=== PATIENT | male | born 1935 | race Caucasian/White ===

== ENCOUNTER 2017-02-20 18:46 | Inpatient (IN) ==
--- NOTE | 2017-02-20 19:27 | Emergency Department Note ---
SOB HPI - General Chief Complaint: Shortness of Breath/Dyspnea Stated Complaint: Short of breath Time Seen by Provider: 02/20/17 19:11 Source: patient, family Mode of arrival: ambulatory - History of Present Illness Patient reports shortness of breath the last 2 weeks low but worse today. Does have a history of cardiomyopathy, CHF. No recent ankle swelling, his does state that he vomited once today, he was not able to hold much down in the way of food. No fevers reported he does feel a little cold denies any abdominal pain, he has had some nausea but no vomiting denies any diarrhea, no cough mainly shortness of breath. MD Complaint: shortness of breath - Related Data Home Medications Medication Instructions Recorded Confirmed aspirin 81 mg tablet,delayed 81 mg PO QDAY tab 02/13/15 01/17/17 release cholecalciferol (vitamin D3) 5,000 5,000 unit PO QDAY cap 02/13/15 01/17/17 unit capsule lancets See Dose Instructions .ROUTE 02/13/15 01/11/17 .MEDSUPPLY nitroglycerin 0.4 mg sublingual 0.4 mg SUBLINGUAL Q5MIN PRN tab 02/13/15 tablet carvedilol 3.125 mg tablet 3.125 mg PO .COMPLEX tab 03/19/15 01/17/17 digoxin 250 mcg tablet 125 mcg PO ONCE tab 01/11/17 01/17/17 Previous Rx's Medication Instructions Recorded sitagliptin 100 mg tablet 100 mg PO QDAY #30 tab 02/09/16 pravastatin 40 mg tablet 20 mg PO QHS #15 tab 02/21/16 blood sugar diagnostic strips See Dose Instructions .ROUTE 03/07/16 .MEDSUPPLY #100 each isosorbide mononitrate ER 30 mg 30 mg PO QAM #30 tab 01/11/17 tablet,extended release 24 hr Lisinopril [Zestril] 2.5 mg PO DAILY #60 tablet 01/17/17 torsemide 20 mg tablet 20 mg PO QDAY #30 tab 02/16/17 Allergies Allergy/AdvReac Type Severity Reaction Status Date / Time peanut Allergy Other Verified 02/20/17 18:51 Review of Systems All systems ED: reviewed and negative except as stated. ENT ED: Denies: ear pain, throat pain Cardiovascular: Reports: dyspnea on exertion. Denies: chest pain Respiratory: Reports: dyspnea. Denies: cough Gastrointestinal: Reports: nausea, vomiting. Denies: abdominal pain, diarrhea, constipation Past Medical History - Past Medical History Source: nursing notes reviewed Medical history: Reports: CHF, coronary artery disease, myocardial infarction, other (ICD, SVT, right axis, retinal detachment, [place], cardiomyopathy, hyperlipidemia, diabetes) Surgical history ED: Reports: angioplasty/stent Family history: Reports: no significant family history, non-contributory - Social History smoking status: Never smoker Alcohol use: Reports: Occasionally Drug use: Reports: none Physical Exam - General Limitations: no limitations General appearance: alert - Head Head exam: atraumatic, normocephalic - Eye Eye exam: Present: normal appearance, PERRL, EOMI. Absent: conjunctival injection - ENT ENT exam: normal exam, normal oropharynx, mucous membranes moist - Neck Neck exam: Present: normal inspection, full ROM. Absent: tenderness - Chest Chest inspection: Present: normal inspection, symmetric chest wall rise - Respiratory Respiratory exam: Present: normal lung sounds bilaterally, accessory muscle use , other (ew basilar crackles). Absent: respiratory distress - Cardiovascular Cardiovascular exam: Present: regular rate, systolic murmur - Abdominal Exam Abdominal exam: Present: soft. Absent: distention, tenderness, guarding - exam: Present: normal inspection - Extremities Exam Extremities exam: Present: normal inspection. Absent: pedal edema - Back Exam Back exam: Present: normal inspection - Neurological Exam Neurological exam: Present: alert, oriented X3, CN II-XII intact. Absent: motor sensory deficit - Psychiatric Psychiatric exam: Present: normal affect - Skin Skin exam: Present: warm, dry, pallor Course - Reevaluation(s) Reevaluation #1: We tried giving him Lasix 40 mg IV, and he did put out about 250 cc of urine with that. He was also started on nitro paste and we tried to evaluate his oxygen saturation after the above procedures. Turns out that he was still tachypneic breathing at a respiratory rate of about 24-26, O2 sats were 80-83% on room air. Thus he needs oxygen and monitoring, I'm not sure there is much else that could be done medication galeano but his dig levels also too high and his digoxin certainly needs to be cut back and held for now, his blood pressure has been borderline 110 up as high as 118 systolic and there might be a little room to lower his blood pressure carefully. Discussed with Dr. aGllo we will admit him for CHF, oxygen treatment and hopefully care issues can be discussed with the family and the patient. Vital Signs Temperature 97.9 F 02/20/17 18:47 Pulse Rate 102 H 02/20/17 18:47 Respiratory Rate 15 02/20/17 18:47 Blood Pressure 132/88 02/20/17 18:47 Pulse Oximetry (%) 99 02/20/17 18:47 Temperature 97.9 F 02/20/17 18:47 Pulse Rate 96 H 02/20/17 20:50 Respiratory Rate 26 H 02/20/17 19:55 Blood Pressure 130/69 02/20/17 21:46 Pulse Oximetry (%) 96 02/20/17 20:50 Shortness of Breath/Dyspnea - [facility] Narrative Medical decision making narrative: impression is CHF with cardiomyopathy and dig toxici - Lab Data Result diagrams: 02/20/17 19:31 02/20/17 19:31 Lab Results 02/20/17 02/20/17 02/20/17 Range/Units 19:31 19:31 19:31 WBC 9.9 (4.5-11.0) K/mcL RBC 4.68 (4.50-5.90) M/mcL Hgb 13.3 L (13.5-16.5) g/dL Hct 40.3 L (41.0-55.0) % MCV 86.1 (80.0-100.0) fL MCH 28.5 (26.0-34.0) pg MCHC 33.1 (31.0-36.0) g/dL RDW 16.1 H (11.5-14.5) % Plt Count 210 (140-440) K/mcL MPV 9.9 (7.4-10.4) fL Gran % 84.1 H (38.0-78.0) % Lymph % (Auto) 9.0 L (15.5-49.0) % [place] % (Auto) 5.7 (1.0-12.0) % Eos % (Auto) 0.4 (0.0-7.0) % Baso % (Auto) 0.8 (0.0-2.0) % Gran # 8.3 H (1.8-8.0) K/mcL Lymph # (Auto) 0.9 L (1.5-4.8) K/mcL [place] # (Auto) 0.6 (0.1-0.9) K/mcL Eos # (Auto) 0 (0.0-0.7) K/mcL Baso # (Auto) 0.1 (0.0-0.3) K/mcL Sodium 135 (133-145) mmol/L Potassium 4.1 (3.3-5.1) mmol/L Chloride 92 L (96-108) mmol/L Carbon Dioxide 20 L (22-30) mmol/L Anion Gap 23.0 H (8-16) BUN 28 H (8-23) mg/dl Creatinine 1.8 H (0.7-1.2) mg/dl GFR Calculation 35 Glucose 220 H (70-105) mg/dL Calcium 10.0 (8.6-10.4) mg/dl Total Bilirubin 1.4 H (0.0-1.0) mg/dL AST 137 H (0-37) U/l ALT 127 H (0-40) U/l Alkaline Phosphatase 89 (39-117) U/L Troponin T 0.04 H* (0-0.03) ng/ml NT-Pro-B Natriuret Pep 78353.0 H (0-450) pg/ml Total Protein 7.6 (5.9-8.4) gm/dL Albumin 3.7 (3.2-5.2) gm/dL Globulin 3.9 H (2.2-3.7) gm/dL Albumin/Globulin Ratio 0.9 L (1.0-2.3) Urine Color Urine Appearance Urine pH (5.0-9.0) Ur Specific [place] (1.000-1.035) Urine Protein (NEG) mg/dL Urine Glucose (UA) (NEG) mg/dL Urine Ketones (NEG) mg/dL Urine Occult Blood (<0.03) mg/dL Urine Nitrate (NEG) Urine Bilirubin (NEG) mg/dL Urine Urobilinogen (NEG) mg/dL Ur Leukocyte Esterase (NEG) /uL Urine RBC (0-1) /hpf Urine WBC (0-4) /hpf Ur Squamous Epith Cells (0-4) /hpf Urine Bacteria (0) /hpf Ur Culture Indicated? Digoxin (0.5-0.8) ng/ml Digoxin Dose Digox Last Dose Time 02/20/17 02/20/17 Range/Units 19:31 20:13 WBC (4.5-11.0) K/mcL RBC (4.50-5.90) M/mcL Hgb (13.5-16.5) g/dL Hct (41.0-55.0) % MCV (80.0-100.0) fL MCH (26.0-34.0) pg MCHC (31.0-36.0) g/dL RDW (11.5-14.5) % Plt Count (140-440) K/mcL MPV (7.4-10.4) fL Gran % (38.0-78.0) % Lymph % (Auto) (15.5-49.0) % [place] % (Auto) (1.0-12.0) % Eos % (Auto) (0.0-7.0) % Baso % (Auto) (0.0-2.0) % Gran # (1.8-8.0) K/mcL Lymph # (Auto) (1.5-4.8) K/mcL [place] # (Auto) (0.1-0.9) K/mcL Eos # (Auto) (0.0-0.7) K/mcL Baso # (Auto) (0.0-0.3) K/mcL Sodium (133-145) mmol/L Potassium (3.3-5.1) mmol/L Chloride (96-108) mmol/L Carbon Dioxide (22-30) mmol/L Anion Gap (8-16) BUN (8-23) mg/dl Creatinine (0.7-1.2) mg/dl GFR Calculation Glucose (70-105) mg/dL Calcium (8.6-10.4) mg/dl Total Bilirubin (0.0-1.0) mg/dL AST (0-37) U/l ALT (0-40) U/l Alkaline Phosphatase (39-117) U/L Troponin T (0-0.03) ng/ml NT-Pro-B Natriuret Pep (0-450) pg/ml Total Protein (5.9-8.4) gm/dL Albumin (3.2-5.2) gm/dL Globulin (2.2-3.7) gm/dL Albumin/Globulin Ratio (1.0-2.3) Urine Color Yellow Urine Appearance Clear Urine pH 6.0 (5.0-9.0) Ur Specific [place] 1.010 (1.000-1.035) Urine Protein 30 A (NEG) mg/dL Urine Glucose (UA) Negative (NEG) mg/dL Urine Ketones Neg (NEG) mg/dL Urine Occult Blood Neg (<0.03) mg/dL Urine Nitrate Neg (NEG) Urine Bilirubin Neg (NEG) mg/dL Urine Urobilinogen Neg (NEG) mg/dL Ur Leukocyte Esterase Neg (NEG) /uL Urine RBC 1 (0-1) /hpf Urine WBC 1 (0-4) /hpf Ur Squamous Epith Cells 0 (0-4) /hpf Urine Bacteria 0 (0) /hpf Ur Culture Indicated? No Digoxin 2.3 H* (0.5-0.8) ng/ml Digoxin Dose Not Reportable Digox Last Dose Time Not Reportable Disposition Disposition: Xfer As Inpt ([facility]) Condition: Undetermined Referrals: Brian Francisco MD [Primary Care Provider] -
[2017-02-20] MEDS ORDERED: NITROGLYCERIN 1 GM OINT.TOP TD ONE (19:30)
[2017-02-20 20:10] LABS: Basophils # (Auto) 0.1 K/mcL (0.0-0.3); Basophils % (Auto) 0.8 % (0.0-2.0); Eosinophils # (Auto) 0 K/mcL (0.0-0.7); Eosinophils % (Auto) 0.4 % (0.0-7.0); Granulocytes % (Auto) 84.1 % (38.0-78.0); Lymphocytes # (Auto) 0.9 K/mcL (1.5-4.8); Mean Cell Volume 86.1 fL (80.0-100.0); Mean Corpuscular HGB Conc 33.1 g/dL (31.0-36.0); Mean Corpuscular Hemoglobin 28.5 pg (26.0-34.0); Monocytes # (Auto) 0.6 K/mcL (0.1-0.9); Monocytes % (Auto) 5.7 % (1.0-12.0); Platelet Count 210 K/mcL (140-440); RBC 4.68 M/mcL (4.50-5.90); Red Cell Distribution Width 16.1 % (11.5-14.5)
[2017-02-20 20:36] LABS: ALT/SGPT 127 U/l (0-40); Albumin 3.7 gm/dL (3.2-5.2); Albumin/Globulin Ratio 0.9 (1.0-2.3); Alkaline Phosphatase 89 U/L (39-117); Blood Urea Nitrogen 28 mg/dl (8-23)
[2017-02-20 20:50] LABS: Appearance,Urine CLEAR; Bacteria,Urine 0 /hpf (0); Bilirubin,Urine NEG (NEG); Color,Urine YELLOW; Glucose,Urine (UA) NEGATIVE (NEG); Leukocyte Esterase,Urine NEG /uL (NEG); Nitrate,Urine NEG (NEG); Protein,Urine 30 mg/dL (NEG); Urine Blood NEG mg/dL (<0.03); Urine RBC 1 /hpf (0-1); Urine Squamous Epithelial Cell 0 /hpf (0-4); Urine WBC 1 /hpf (0-4); Urobilinogen,Urine NEG (NEG)
[2017-02-20] MEDS ORDERED: FUROSEMIDE 40 MG/4 ML VIAL IV ONE (20:53)
--- NOTE | 2017-02-20 22:32 | Internal Med History&Physical ---
Medical - H&P: HPI Patient information: Note initiated : 02/20/17 at 10:29 pm Patient: Alcides Lopez 82 y/o M admitted on for Short of breath. History of present illness: Mr. Lopez is a 82 year old man who presented to the emergency room this evening complaining of worsening shortness of breath. His reports that he has had progressive dyspnea for at least the last month. He has a known ischemic cardiomyopathy, but apparently last saw his fpga engineer, Dr. Beach , last July, who then retired. He has been seeing his primary care physician, and having his medications adjusted, but his says he is just continuing to get worse. She says he is now too weak to stand up. He is short of breath both at rest and particularly with exertion. Emergency room evaluation showed worsening renal function and hypoxia on room air down into the 80s. BNP was markedly elevated, and troponin was mildly positive. The patient is admitted for intensive management of congestive heart failure. He is quite sleepy during the time of my exam, and is rather dyspneic. His answers most questions, although he does occasionally answer a question. He denies recent fever or chills, headaches or dizziness, new eye or ear symptoms, sore throat or cough. He denies chest pain or palpitations, abdominal pain, nausea or vomiting, diarrhea or constipation. He denies dysuria. He was scheduled to establish care with a new fpga engineer, Dr. Arcos, on March 02. 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 carvedilol 3.125 mg PO Take one tablet in the morning and two tablets in the evening.; administer with food cholecalciferol (vitamin D3) 5,000 units PO QDAY digoxin 125 mcg PO ONCE isosorbide mononitrate ER 30 mg PO QAM lancets Use as directed to test blood sugars once daily. [lisinopril 2.5 mg PO DAILY] nitroglycerin 0.4 mg Sublingual Q5MIN PRN pravastatin 20 mg (1/2 x 40 mg) PO QHS sitagliptin 100 mg PO QDAY torsemide 20 mg PO QDAY Allergies/Adverse Reactions peanut Allergy Family History father Malignant neoplasm of prostate Father Secondary malignant neoplasm of respiratory tract Listed as:trachea/bronchus/lung Mother Myocardial Infarction, Onset Age: 68 Social History smoking status: Never smoker. No drug use. alcohol intake frequency: former alcohol drinker. The patient lives with his . I believe their children live out of town. Medical - H&P: Meds Home Medications Medication Instructions Recorded Confirmed Type aspirin 81 mg tablet,delayed 81 mg PO QDAY tab 02/13/15 01/17/17 History release cholecalciferol (vitamin D3) 5,000 5,000 unit PO QDAY cap 02/13/15 01/17/17 History unit capsule lancets See Dose Instructions .ROUTE 02/13/15 01/11/17 History .MEDSUPPLY nitroglycerin 0.4 mg sublingual 0.4 mg SUBLINGUAL Q5MIN PRN tab 02/13/15 History tablet carvedilol 3.125 mg tablet 3.125 mg PO .COMPLEX tab 03/19/15 01/17/17 History sitagliptin 100 mg tablet 100 mg PO QDAY #30 tab 02/09/16 01/17/17 Rx pravastatin 40 mg tablet 20 mg PO QHS #15 tab 02/21/16 01/17/17 Rx blood sugar diagnostic strips See Dose Instructions .ROUTE 03/07/16 01/11/17 Rx .MEDSUPPLY #100 each digoxin 250 mcg tablet 125 mcg PO ONCE tab 01/11/17 01/17/17 History isosorbide mononitrate ER 30 mg 30 mg PO QAM #30 tab 01/11/17 01/17/17 Rx tablet,extended release 24 hr Lisinopril [Zestril] 2.5 mg PO DAILY #60 tablet 01/17/17 Rx torsemide 20 mg tablet 20 mg PO QDAY #30 tab 02/16/17 02/20/17 Rx Allergies Allergy/AdvReac Type Severity Reaction Status Date / Time peanut Allergy Other Verified 02/20/17 18:51 Medical - H&P: Exam - Constitutional Vitals: Temp Pulse Resp BP Pulse Ox 97.9 F 96 H 26 H 130/69 96 02/20/17 18:47 02/20/17 20:50 02/20/17 19:55 02/20/17 21:46 02/20/17 20:50 The patient is very weak and sleepy. He has difficulty answering questions. His is at the bedside. Head: Normocephalic atraumatic. Eyes: Right pupil is round and reactive. Left pupil is irregular from previous surgery., EOMI, anicteric. TMs are clear canals are clear. Pharynx: Mucosa is markedly dry. Posterior pharynx is normal. Neck: Appears supple, without lymphadenopathy, obvious JVD, thyromegaly, bruits. Cardiac exam: Shows regular rate and rhythm with normal S1 and S2. No murmurs, rubs, gallops are obvious. Lungs: He has fairly diffuse crackles and soft wheezes. He is fairly dyspneic at rest, but is lying nearly flat. Abdomen: Is soft and nontender without obvious masses. Bowel sounds are normoactive. Extremities: Show about 1+ edema, without cyanosis or clubbing. Neurologic: The patient is very sleepy and asked to be asked questions several times. Motor exam is grossly nonfocal. Medical - H&P: Reslt - Labs CBC & Chem 7: 02/20/17 19:31 02/21/17 19:31 Labs: Short CBC 02/20/17 Range/Units 19:31 WBC 9.9 (4.5-11.0) K/mcL Hgb 13.3 L (13.5-16.5) g/dL Hct 40.3 L (41.0-55.0) % Plt Count 210 (140-440) K/mcL BMP 02/20/17 19:31 Sodium 135 Potassium 4.1 Chloride 92 L Carbon Dioxide 20 L BUN 28 H Creatinine 1.8 H Glucose 220 H Calcium 10.0 Cardiac Enzymes 02/20/17 Range/Units 19:31 Troponin T 0.04 H* (0-0.03) ng/ml Liver Function 02/20/17 Range/Units 19:31 Total Bilirubin 1.4 H (0.0-1.0) mg/dL AST 137 H (0-37) U/l ALT 127 H (0-40) U/l Alkaline Phosphatase 89 (39-117) U/L Albumin 3.7 (3.2-5.2) gm/dL Urine 02/20/17 Range/Units 20:13 Urine Color Yellow Urine Appearance Clear Urine pH 6.0 (5.0-9.0) Ur Specific [place] 1.010 (1.000-1.035) Urine Protein 30 A (NEG) mg/dL Urine Glucose (UA) Negative (NEG) mg/dL January 20, 2017: Echo cardiogram: Aortic root sclerosis. Moderate aortic leaflet calcification. Moderate LV enlargement with severe global systolic dysfunction , ejection fraction 15-20%. Mild mitral regurgitation. Passive pulmonary hypertension. February 20: CBC differential: Shows 8300 granulocytes. Lymphocytes are low at 900. Next Digoxin is high at 2.3 next Chest x-ray: No official report yet, but to my reading shows diffuse pulmonary vascular congestion. February 09: PFTs: Mild airflow obstruction Medical - H&P: A/P (1) CHF (congestive heart failure), NYHA class IV Current visit: Yes Status: Acute (2) CHF exacerbation Current visit: Yes Status: Acute (3) Diabetes Current visit: No Status: Chronic (4) History of implantable cardioverter-defibrillator (ICD) placement Problem details: 04/15/2014 Dr Henry Current visit: No Status: Chronic (5) Ischemic cardiomyopathy Problem details: with mild CHF 10/13 Current visit: No Status: Chronic - Narrative A/P Narrative: #1. Cardiac. -He presents with worsening CHF symptoms. He has known severe systolic dysfunction, due to ischemic cardiomyopathy. He may have ongoing underlying ischemia. He was to see cardiology on February 28, Dr. Arcos, I believe. He previously saw Dr. Gray in July, before he retired. . It is not clear if he might be a candidate for a biventricular pacer to improve cardiac output. For tonight, he is failing outpatient treatment, and therefore will be admitted for diuresis. -He was initially admitted to telemetry, but rapidly started declining, in terms of his ability to oxygenate and to maintain blood pressure. He was then transferred to the intensive care unit for more aggressive management. -Nitroglycerin drip. -IV Lasix. -Monitor electrolytes closely. Monitor blood pressures. -Coronary disease, ischemic cardiomyopathy. Continue pravastatin, nitroglycerin, Isordil. Continue Coreg, aspirin, lisinopril. Plan consider adding Plavix. -Formal chest x-ray reading is still pending. I am assuming his shortness of breath is related to heart failure, and not to pneumonia. We will try him on IV nitroglycerin to see if that improves his dyspnea at all. If he becomes hypotensive might consider a trial of dobutamine. -Transfer to ICU. -If he does not respond to treatment over the next several hours, contact cardiology at a larger hospital, to discuss possible transfer. Patient says he would want to be transferred if there is more that can be done elsewhere. 2. Endocrine. -Type 2 diabetes. Continue sitagliptin. Accu-Cheks and sliding scale insulin. 3. Hyperlipidemia. Continue pravastatin. Consider changing to a more effective statin, such as Lipitor or Crestor. 4. Renal. Patient appears to have developed chronic renal insufficiency, which either may be due to muscle or aggravated by, his heart failure or heart failure meds. -Elevated digoxin. Hold dig, and monitor levels. 5. CODE STATUS: DNR. #6. DVT prophylaxis: Subcu heparin. This visit took approximately 75 minutes, to review records and test results, review his case with the ER MD, interview and examine him, as well as interview his , and review plan of care with staff, and write orders.
[2017-02-20] MEDS ORDERED: NITROGLYCERIN 0.4 MG TAB.SUBL SL PRN (23:54)
[2017-02-20] MEDS ORDERED: DOCUSATE SODIUM 100 MG CAPSULE PO PRN (23:54)
[2017-02-20] MEDS ORDERED: DEXTROSE 50% 50 ML VIAL IV PRN (23:54)
[2017-02-20] MEDS ORDERED: MAGNESIUM HYDROXIDE 30 ML ORAL.SUSP PO PRN (23:54)
[2017-02-20] MEDS ORDERED: ONDANSETRON 4 MG/2 ML VIAL IV PRN (23:54)
[2017-02-20] MEDS ORDERED: NALOXONE HCL 0.4 MG/ML VIAL IV PRN (23:54)
[2017-02-20] MEDS ORDERED: ACETAMINOPHEN 325 MG TABLET PO PRN (23:54)
[2017-02-20] MEDS ORDERED: ALBUTEROL SULFATE 2.5 MG/3 ML NEBULIZER NEB PRN (23:54)
[2017-02-21 01:02] LABS: ALT/SGPT 126 U/l (0-40); Albumin/Globulin Ratio 1.1 (1.0-2.3); Alkaline Phosphatase 89 U/L (39-117); Bilirubin,Direct 0.4 mg/dL (0.0-0.3); Blood Urea Nitrogen 27 mg/dl (8-23); Gamma Glutamyl Transpeptidase 38 U/L (8-61); Magnesium 2.3 mg/dL (1.6-2.5)
[2017-02-21] MEDS ORDERED: CLOPIDOGREL 75 MG TABLET PO ONE ×2 (01:35→01:36)
[2017-02-21] MEDS ORDERED: MAGNESIUM HYDROXIDE 30 ML ORAL.SUSP PO PRN (01:36)
[2017-02-21] MEDS ORDERED: NITROGLYCERIN 0.4 MG TAB.SUBL SL PRN (01:36)
[2017-02-21] MEDS ORDERED: ACETAMINOPHEN 325 MG TABLET PO PRN (01:36)
[2017-02-21] MEDS ORDERED: NALOXONE HCL 0.4 MG/ML VIAL IV PRN (01:36)
[2017-02-21] MEDS ORDERED: DOCUSATE SODIUM 100 MG CAPSULE PO PRN (01:36)
[2017-02-21] MEDS ORDERED: ALBUTEROL SULFATE 2.5 MG/3 ML NEBULIZER NEB PRN (01:36)
[2017-02-21] MEDS ORDERED: ONDANSETRON 4 MG/2 ML VIAL IV PRN (01:36)
[2017-02-21] MEDS ORDERED: DEXTROSE 50% 50 ML VIAL IV PRN (01:36)
[2017-02-21] MEDS ORDERED: NITROGLYCERIN/D5W 250 ML IV ONE (01:49)
[2017-02-21] MEDS: NITROGLYCERIN/D5W 25 MG/250 ML BOTTLE IV SCH (02:08)
[2017-02-21] MEDS: 0.9 % SODIUM CHLORIDE 250 ML IV SCH ×4 (02:10→21:22)
[2017-02-21] MEDS ORDERED: DOBUTamine 250 ML IV ONE (05:48)
[2017-02-21 05:49] LABS: Estimated Average Glucose(eAG) 166 mg/dL; Hemoglobin A1C 7.4 % HGB (4.0-6.0)
[2017-02-21] MEDS: DOBUTamine 250 MG in PREMIX 1 BAG IV SCH ×3 (05:49→17:40)
[2017-02-21 06:51] LABS: ALT/SGPT 760 U/l (0-40); Albumin 3.5 gm/dL (3.2-5.2); Albumin/Globulin Ratio 0.9 (1.0-2.3); Alkaline Phosphatase 97 U/L (39-117); Bilirubin,Direct 0.5 mg/dL (0.0-0.3); Blood Urea Nitrogen 32 mg/dl (8-23); Gamma Glutamyl Transpeptidase 45 U/L (8-61); Magnesium 2.3 mg/dL (1.6-2.5); Uric Acid 11.3 mg/dL (2.5-8.0)
--- NOTE | 2017-02-21 07:21 | XRay Report ---
CLINICAL INFORMATION: Shortness of breath COMPARISON: 01/17/2017 FINDINGS: The heart has increased in size and is now moderately enlarged. Automatic cardiac defibrillator and wires are in stable satisfactory position. Mediastinum is normal. The pulmonary vessels have increased in caliber and are now moderately congested. There is moderate peribronchovascular edema. No infiltrates. Small right pleural effusion noted. IMPRESSION: Moderate CHF Interpreted and Authenticated by: Yahir Bauer 02/21/17
--- NOTE | 2017-02-21 07:29 | XRay Report ---
CLINICAL INFORMATION: CHF and shortness of breath COMPARISON: None. FINDINGS: The heart is mildly enlarged, but decreased from yesterday. Cardiac automated defibrillator and wires in stable satisfactory position. Mediastinum is unremarkable. Pulmonary vessels have returned to near normal in caliber. There is mild airspace disease in upper perihilar regions which is new. This could indicate aspiration pneumonia. Edema is unlikely. No definite effusion IMPRESSION: Near complete resolution in acute CHF. New mild perihilar airspace disease raises suspicion for aspiration Interpreted and Authenticated by: Yahir Bauer 02/21/17
[2017-02-21] MEDS ORDERED: INSULIN LISPRO 1 UNIT/0.01 ML UNIT SQ SCH (07:30)
--- NOTE | 2017-02-21 07:34 | Internal Med Progress Note ---
Medical - PN: Subj Patient information: Note initiated : 02/21/17 at 7:33 am Patient: Alcides Lopez 82 y/o M admitted on 02/20/17 for Short of breath. Interval history: February 20, 2017:History of present illness: Mr. Lopez is a 82 year old man who presented to the emergency room this evening complaining of worsening shortness of breath. His reports that he has had progressive dyspnea for at least the last month. He has a known ischemic cardiomyopathy, but apparently last saw his director immunology, Dr. Beach , last July, who then retired. He has been seeing his primary care physician, and having his medications adjusted, but his says he is just continuing to get worse. She says he is now too weak to stand up. He is short of breath both at rest and particularly with exertion. Emergency room evaluation showed worsening renal function and hypoxia on room air down into the 80s. BNP was markedly elevated, and troponin was mildly positive. The patient is admitted for intensive management of congestive heart failure. He is quite sleepy during the time of my exam, and is rather dyspneic. His answers most questions, although he does occasionally answer a question. He denies recent fever or chills, headaches or dizziness, new eye or ear symptoms, sore throat or cough. He denies chest pain or palpitations, abdominal pain, nausea or vomiting, diarrhea or constipation. He denies dysuria. He was scheduled to establish care with a new director immunology, Dr. Arcos, on March 02. February 21: The patient had a very difficult night. He had numerous episodes of hypotension as well as worsening hypoxia. He was transitioned from an oxygen mask to BiPAP, and did pretty well with that. He initially tolerated the nitroglycerin drip, and that seemed to help somewhat with his breathing, but eventually he started to have difficulty with hypotension, so that was weaned to off. Initially that helped with his blood pressure, but then blood pressure once again started to decrease. Early this morning he was started on a dobutamine drip, to help support his blood pressure. This morning, systolic blood pressures continue to range from 85 to about 100. Urine output was generally greater than 30 mL/h, but occasionally did dip down. Anion gap looked better this morning, but BUN and creatinine looks slightly worse. LFTs are now quite elevated. Troponin did bump this morning up to 0.08. I did contact (?), Of cardiology, at [facility], this morning. I reviewed the patient's case with him. He suggested that we titrate the dobutamine up by quite a bit, to about 7 mcg/kg/min. He also suggested an IV Lasix drip, varying from 0.1-0.4 mg/kg/h. he said that these 2 continuous drips would give the patient the best chance of diuresis without severe hypotension. These medications were started fairly early this morning. They have been titrated up over the course of the day. The patient is maintaining mean arterial pressures generally above 65. Urine output dropped quite a bit today, so the nurse ultimately bladder scan him , and found that he had over 900 mL of urine in his bladder, and that the Bergeron was malfunctioning. That Bergeron was pulled, and the new one was attempted, but 3 different nurses tried and could not get a Bergeron catheter placed. -Otherwise, the patient says his breathing is much easier today. He has been awake and alert today, and his sons have arrived from out of town. He has periodically taken the BiPAP off, to eat and drink, and has tolerated that fairly well also. - Constitutional Vitals: Vital Signs Temp Pulse Resp BP Pulse Ox 99.1 F H 82 24 H 112/81 97 02/20/17 23:54 02/21/17 07:15 02/21/17 07:15 02/21/17 07:01 02/21/17 07:15 Period Temp Pulse Resp BP Sys/Culp Pulse Ox Last 24 Hr 99.1 F 80-103 13-39 75-146/58-104 86-100 Intake and Output 02/20/17 02/21/17 02/21/17 21:59 05:59 13:59 Output Total 250 / 250 30 / 30 Balance -250 / -250 -30 / -30 Intake & Output: Intake & Output 02/20/17 02/21/17 02/21/17 21:59 05:59 13:59 Output Total 250 / 250 30 / 30 Balance -250 / -250 -30 / -30 Output: Urine Catheter Amount 250 / 250 30 / 30 Other: # Bowel Movements 0 Intake and output, indicates that the patient is about 900 mL ahead on fluids, but then it was discovered that he has about 900 mL in his bladder on bladder scan. So his eyes and nose may be a bit on the negative side. On exam, the patient was wearing his BiPAP mask, but otherwise was in no acute distress. Neck shows no obvious JVD. Cardiac exam shows regular rate and rhythm. No murmurs, rubs, gallops are appreciated. Lung exam: Shows diffuse crackles and wheezes throughout both lung jeffrey. Breathing is somewhat labored, but no significant accessory muscle use. Abdomen: Is soft and nontender. Extremities: Show about 1+ edema. Neurologic exam: Patient is awake and alert, and able to answer questions. Mood is calm. Exam is grossly nonfocal. Medical - PN: Obj Da - Labs CBC & Chem 7: 02/20/17 19:31 02/21/17 19:31 Labs: Abnormal Lab Results 02/21/17 02/21/17 02/21/17 19:31 03:48 03:48 Chloride 94 L 95 L Carbon Dioxide 18 L Anion Gap 23.0 H 17.0 H BUN 27 H 32 H Creatinine 1.7 H 1.9 H Glucose 209 H 200 H Hemoglobin A1c 7.4 H Uric Acid 10.0 H 11.3 H Phosphorus 4.6 H Total Bilirubin 1.3 H 1.4 H Direct Bilirubin 0.4 H 0.5 H AST 145 H 970 H ALT 126 H 760 H Lactate Dehydrogenase 479 H 995 H Troponin T 0.08 H* Globulin 4.1 H Albumin/Globulin Ratio 0.9 L February 21: Digoxin level remains elevated at 2.1 EKG showed normal sinus rhythm with first-degree AV block, and one PVC, rate of 84. Significant LVH. Intraventricular conduction delay. Probable old anterolateral UT. On shelter monitor, the patient's heart rate occasionally drops down below 50 , and then he does appear to have a pacemaker function that kicks in, from his AICD. February 20: CBC differential: Shows 8300 granulocytes. Lymphocytes are low at 900. Next Digoxin is high at 2.3 Chest x-ray: No official report yet, but to my reading shows diffuse pulmonary vascular congestion. February 09: PFTs: Mild airflow obstruction January 20, 2017: Echo cardiogram: Aortic root sclerosis. Moderate aortic leaflet calcification. Moderate LV enlargement with severe global systolic dysfunction , ejection fraction 15-20%. Mild mitral regurgitation. Passive pulmonary hypertension. Meds: Medications Acetaminophen (Tylenol) 650 mg PO Q6HP PRN PRN Reason: PAIN/FEVER > 101 Albuterol Sulfate (Ventolin) 2.5 mg NEB Q4HRT PRN PRN Reason: Shortness Of Breath Or Wheezing Carvedilol (Coreg) 3.125 mg PO BIDCC AKRLA Clopidogrel Bisulfate (Plavix) 75 mg PO DAILY KARLA Dextrose (Dextrose 50%) 0 ml IV UD PRN PRN Reason: Hypoglycemia Diagnostic Test (Pha) (Accu-Chek) 1 each FS ACHS KARLA Docusate Sodium (Colace) 100 mg PO BID PRN PRN Reason: Constipation Furosemide (Lasix) 40 mg IV BIDD KARLA Heparin Sodium (Porcine) (Heparin) 5,000 unit SQ Q12 KARLA Nitroglycerin/Dextrose (Nitroglycerin/D5w) 25 mg in 250 mls @ 3 mls/hr IV .Q24H KARLA; 5 MCG/MIN PRN Reason: Protocol Last Admin: 02/21/17 02:08 Dose: Not Given Sodium Chloride (Sodium Chloride 0.9%) 250 mls @ 20 mls/hr IV .[id number] KARLA Last Admin: 02/21/17 02:10 Dose: 20 mls/hr Dobutamine HCl/Dextrose 250 mg (/ Premix) 250 mls @ 1.89 mls/hr IV .Q24H KARLA; 0.5 MCG/KG/MIN PRN Reason: Protocol Last Admin: 02/21/17 05:49 Dose: Not Given Sodium Chloride (Sodium Chloride 0.9%) 250 mls @ 20 mls/hr IV .[id number] KARLA Last Admin: 02/21/17 05:50 Dose: Not Given Insulin Human Lispro (Humalog) 0 unit SQ ACHS KARLA PRN Reason: Protocol Magnesium Hydroxide (Milk Of Magnesia) 30 ml PO DAILYP PRN PRN Reason: Constipation Morphine Sulfate (Morphine) 2 mg IV Q5MIN PRN PRN Reason: Shortness Of Breath Last Admin: 02/21/17 03:00 Dose: 2 mg Naloxone HCl (Narcan) 0.1 mg IV Q2MIN PRN PRN Reason: Opiate Reversal Nitroglycerin (Nitrostat) 0.4 mg SL Q5M PRN PRN Reason: Chest Pain Ondansetron HCl (Zofran) 4 mg IV Q4HP PRN PRN Reason: Nausea And Vomiting Medical - PN: A/P - Time Spent With Patient Total time spent is greater than 50% in coordination of care (as documented) at patient's floor/unit and/or counseling patient: Greater than 35 minutes (1) CHF (congestive heart failure), NYHA class IV Status: Acute Current Visit: Yes (2) CHF exacerbation Status: Acute Current Visit: Yes (3) Diabetes Status: Chronic Current Visit: No (4) History of implantable cardioverter-defibrillator (ICD) placement Problem details: 04/15/2014 Dr Henry Status: Chronic Current Visit: No (5) Ischemic cardiomyopathy Problem details: with mild CHF 10/13 Status: Chronic Current Visit: No - Narrative A/P Narrative: #1. Cardiac. -He presents with worsening CHF symptoms. He has known severe systolic dysfunction, due to ischemic cardiomyopathy. He may have ongoing underlying ischemia. He was to see cardiology on February 28, Dr. Arcos, I believe. He previously saw Dr. Gray in July, before he retired. -He has an AICD in place, and apparently a functioning pacemaker, although I was told earlier that the pacemaker did not work. -He remains in critical condition, requiring a dobutamine drip to maintain his blood pressure, and a Lasix drip to try to maintain urine output. We are currently giving him a trial of trying to void spontaneously. If he cannot, we will ask Dr. Sierra of urology to place a catheter, so that we can continue to accurately monitor his output. Our hope is that with the combination of dobutamine and Lasix, that he can be diuresed, while maintaining a reasonable blood pressure, over the next 24-48 hours. I reviewed with the patient and his and sons today, with the director immunology suggested. I also reviewed with them that if this is ineffective, and they still want aggressive management, that we may need to see if we can send him up to the CHF center with Dr. Maldonado in [place]. -He is actually maintaining O2 saturations quite well today, which is an improvement over last night. Blood pressures and urine output seem to be more stable when he is using the BiPAP mask, so I have asked him to keep that on, other than to eat and drink. -Coronary disease, ischemic cardiomyopathy. -Plavix was added, regarding risk of clots with his low ejection fraction. Torsemide is on hold. Resume pravastatin. Isosorbide is on hold, regarding hypotension. Digoxin is on hold, regarding elevated levels. Coreg is on hold, regarding hypotension. Continue aspirin. Lisinopril is on hold, regarding hypotension. 2. Endocrine. -Type 2 diabetes. Glucose remains fairly elevated, ranging from 173-209. Continue sitagliptin. Accu-Cheks and increase sliding scale insulin. 3. Hyperlipidemia. Continue pravastatin. Consider changing to a more effective statin, such as Lipitor or Crestor. 4. Renal. Patient appears to have developed chronic renal insufficiency, which either may be due to muscle or aggravated by, his heart failure or heart failure meds. Continue to monitor. Try to maintain urine output with IV Lasix drip. -Elevated digoxin. Hold dig, and monitor levels. 5. CODE STATUS: DNR. #6. DVT prophylaxis: Subcu heparin. Today's visit took approximately 40 minutes, with an additional 1 hour of critical care, since midnight, including time at the bedside, time in the ICU, and management on the floor. Medical - PN: Qual - VTE Deep Vein Thrombosis/Pulmonary Embolism Present on Admission: No
[2017-02-21] MEDS ORDERED: FUROSEMIDE 250 MG in 0.9 % SODIUM CHLORIDE 225 ML IV SCH (08:00)
[2017-02-21] MEDS ORDERED: FUROSEMIDE 40 MG/4 ML VIAL IV SCH ×2 (08:00)
[2017-02-21] MEDS ORDERED: CARVEDILOL 3.125 MG TABLET PO SCH (08:00)
[2017-02-21] MEDS: INSULIN LISPRO 1 UNIT/0.01 ML UNIT SQ SCH ×4 (08:56→21:19)
[2017-02-21] MEDS: HEPARIN 5,000 UNIT/ML VIAL SQ SCH ×2 (08:58→21:18)
[2017-02-21] MEDS ORDERED: HEPARIN 5,000 UNIT/ML VIAL SQ SCH (09:00)
[2017-02-21] MEDS: CLOPIDOGREL 75 MG TABLET PO SCH (17:40)
[2017-02-21] MEDS ORDERED: PRAVASTATIN 40 MG TABLET PO SCH (21:00)
[2017-02-21] MEDS: ASPIRIN 81 MG TAB.CHEW PO SCH (21:20)
[2017-02-21] MEDS: SIMVASTATIN 20 MG TABLET PO SCH (21:20)
[2017-02-22] MEDS: DOBUTamine 250 MG in PREMIX 1 BAG IV SCH ×4 (00:20→15:40)
[2017-02-22] MEDS: NITROGLYCERIN/D5W 25 MG/250 ML BOTTLE IV SCH (01:42)
[2017-02-22] MEDS: 0.9 % SODIUM CHLORIDE 250 ML IV SCH ×4 (02:46→21:05)
[2017-02-22 06:23] LABS: Basophils # (Auto) 0 K/mcL (0.0-0.3); Basophils % (Auto) 0.2 % (0.0-2.0); Eosinophils # (Auto) 0.1 K/mcL (0.0-0.7); Eosinophils % (Auto) 0.8 % (0.0-7.0); Granulocytes % (Auto) 89.5 % (38.0-78.0); Lymphocytes # (Auto) 0.9 K/mcL (1.5-4.8); Lymphocytes % (Auto) 6.4 % (15.5-49.0); Mean Cell Volume 88.5 fL (80.0-100.0); Mean Corpuscular HGB Conc 33.1 g/dL (31.0-36.0); Mean Corpuscular Hemoglobin 29.3 pg (26.0-34.0); Monocytes # (Auto) 0.4 K/mcL (0.1-0.9); Monocytes % (Auto) 3.1 % (1.0-12.0); Platelet Count 182 K/mcL (140-440); RBC 4.09 M/mcL (4.50-5.90); Red Cell Distribution Width 16.8 % (11.5-14.5)
[2017-02-22 06:56] LABS: ALT/SGPT 434 U/l (0-40); Albumin 2.9 gm/dL (3.2-5.2); Alkaline Phosphatase 71 U/L (39-117); Bilirubin,Direct 0.4 mg/dL (0.0-0.3); Blood Urea Nitrogen 46 mg/dl (8-23); Gamma Glutamyl Transpeptidase 31 U/L (8-61); Uric Acid 12.1 mg/dL (2.5-8.0)
[2017-02-22] MEDS ORDERED: DIGOXIN 125 MCG TABLET PO SCH ×2 (08:00→14:00)
[2017-02-22] MEDS ORDERED: POTASSIUM CHLORIDE 40 MEQ in DEXTROSE 5% IN WATER 500 ML IV ONE (08:30)
[2017-02-22] MEDS: INSULIN LISPRO 1 UNIT/0.01 ML UNIT SQ SCH ×4 (08:40→21:01)
[2017-02-22] MEDS: HEPARIN 5,000 UNIT/ML VIAL SQ SCH ×2 (09:46→21:03)
[2017-02-22] MEDS: CLOPIDOGREL 75 MG TABLET PO SCH (09:48)
[2017-02-22] MEDS: ASPIRIN 81 MG TAB.CHEW PO SCH (09:50)
[2017-02-22] MEDS: CARVEDILOL 3.125 MG TABLET PO SCH ×2 (09:52→19:12)
--- NOTE | 2017-02-22 10:25 | Internal Med Progress Note ---
Medical - PN: Subj Patient information: Note initiated : 02/22/17 at 10:25 am Patient: Alcides Lopez 82 y/o M admitted on 02/20/17 for Short of Breath/CHF Exacerbation. Interval history: February 20, 2017:History of present illness: Mr. Lopez is a 82 year old man who presented to the emergency room this evening complaining of worsening shortness of breath. His reports that he has had progressive dyspnea for at least the last month. He has a known ischemic cardiomyopathy, but apparently last saw his construction operations manager, Dr. Beach , last July, who then retired. He has been seeing his primary care physician, and having his medications adjusted, but his says he is just continuing to get worse. She says he is now too weak to stand up. He is short of breath both at rest and particularly with exertion. Emergency room evaluation showed worsening renal function and hypoxia on room air down into the 80s. BNP was markedly elevated, and troponin was mildly positive. The patient is admitted for intensive management of congestive heart failure. He is quite sleepy during the time of my exam, and is rather dyspneic. His answers most questions, although he does occasionally answer a question. He denies recent fever or chills, headaches or dizziness, new eye or ear symptoms, sore throat or cough. He denies chest pain or palpitations, abdominal pain, nausea or vomiting, diarrhea or constipation. He denies dysuria. He was scheduled to establish care with a new construction operations manager, Dr. Arcos, on March 02. February 21: The patient had a very difficult night. He had numerous episodes of hypotension as well as worsening hypoxia. He was transitioned from an oxygen mask to BiPAP, and did pretty well with that. He initially tolerated the nitroglycerin drip, and that seemed to help somewhat with his breathing, but eventually he started to have difficulty with hypotension, so that was weaned to off. Initially that helped with his blood pressure, but then blood pressure once again started to decrease. Early this morning he was started on a dobutamine drip, to help support his blood pressure. This morning, systolic blood pressures continue to range from 85 to about 100. Urine output was generally greater than 30 mL/h, but occasionally did dip down. Anion gap looked better this morning, but BUN and creatinine looks slightly worse. LFTs are now quite elevated. Troponin did bump this morning up to 0.08. I did contact (?), Of cardiology, at [facility], this morning. I reviewed the patient's case with him. He suggested that we titrate the dobutamine up by quite a bit, to about 7 mcg/kg/min. He also suggested an IV Lasix drip, varying from 0.1-0.4 mg/kg/h. he said that these 2 continuous drips would give the patient the best chance of diuresis without severe hypotension. These medications were started fairly early this morning. They have been titrated up over the course of the day. The patient is maintaining mean arterial pressures generally above 65. Urine output dropped quite a bit today, so the nurse ultimately bladder scan him , and found that he had over 900 mL of urine in his bladder, and that the Bergeron was malfunctioning. That Bergeron was pulled, and the new one was attempted, but 3 different nurses tried and could not get a Bergeron catheter placed. -Otherwise, the patient says his breathing is much easier today. He has been awake and alert today, and his sons have arrived from out of town. He has periodically taken the BiPAP off, to eat and drink, and has tolerated that fairly well also. February 22: Today, the patient notes he is feeling quite a bit better. He tolerates being off the BiPAP is fine, and is able to eat and drink and talk without much difficulty. He denies fever or chills, headaches or dizziness, chest pain or palpitations. He has not really been out of bed more than once, so is not sure about dyspnea on exertion. He does not currently feel short of breath at rest. He denies abdominal pain, nausea or vomiting, diarrhea or constipation. Yesterday they had a very difficult time with his Bergeron, but finally did replace it. He diuresed very large volumes overnight, and his Lasix drip was discontinued. Blood pressures still run rather low, on dobutamine at 13 mics per kilo per minute. - Constitutional Vitals: Vital Signs Temp Pulse Resp BP Pulse Ox 97.9 F 85 13 87/42 100 02/22/17 07:01 02/22/17 07:14 02/22/17 07:04 02/22/17 07:01 02/22/17 07:14 Period Temp Pulse Resp BP Sys/Culp Pulse Ox Last 24 Hr 97.5 F-98.6 F 40-100 13-27 65-133/42-114 92-100 Intake and Output 02/21/17 02/22/17 02/22/17 21:59 05:59 13:59 Intake Total 608 / 608 1550 / 1550 Output Total 3130 / 3130 3920 / 3920 984 / 984 Balance -2522 / -2522 -2370 / -2370 -984 / -984 Weight 138 lb 1.6 oz Intake & Output: Intake & Output 02/21/17 02/22/17 02/22/17 21:59 05:59 13:59 Intake Total 608 / 608 1550 / 1550 Output Total 3130 / 3130 3920 / 3920 984 / 984 Balance -2522 / -2522 -2370 / -2370 -984 / -984 Weight 138 lb 1.6 oz Intake: IV 208 / 208 750 / 750 Sodium Chloride 0.9% 250 250 / 250 ml @ 20 mls/hr IV . [id number] [facility] Rx#:[id number] Dobutrex 250 mg In Premix 208 / 208 500 / 500 1 Bag @ 0.5 MCG/KG/MIN 1 .89 mls/hr IV .Q24H [facility] Rx#:[id number] Oral 400 / 400 800 / 800 Output: Urine Catheter Amount 3130 / 3130 3920 / 3920 984 / 984 Other: Meal Dinner Percent of Meal Consumed 75% On exam, he is awake and alert, and in no acute distress. His daughter is sitting at the bedside. Neck shows no obvious JVD. Cardiac exam shows regular rate and rhythm with occasional ectopy. Lungs: Show rare crackles, mainly at the bases, otherwise clear. Abdomen is soft and nontender. Extremities show no edema. Neurologic exam: Is grossly nonfocal. Medical - PN: Obj Da - Labs CBC & Chem 7: 02/22/17 03:39 02/22/17 03:39 Labs: Abnormal Lab Results 02/22/17 02/22/17 02/22/17 03:39 03:39 03:39 WBC 13.8 H RBC 4.09 L Hgb 12.0 L Hct 36.2 L RDW 16.8 H Gran % 89.5 H Lymph % (Auto) 6.4 L Gran # 12.3 H Lymph # (Auto) 0.9 L Potassium 3.1 L Chloride 93 L Carbon Dioxide Anion Gap 18.0 H BUN 46 H Creatinine 2.1 H Glucose 145 H Hemoglobin A1c Uric Acid 12.1 H Phosphorus Total Bilirubin 1.2 H Direct Bilirubin 0.4 H AST 302 H ALT 434 H Lactate Dehydrogenase 282 H Troponin T Albumin 2.9 L Globulin Albumin/Globulin Ratio Digoxin 1.2 H 02/21/17 02/21/17 02/21/17 19:31 03:48 03:48 WBC RBC Hgb Hct RDW Gran % Lymph % (Auto) Gran # Lymph # (Auto) Potassium Chloride 94 L Carbon Dioxide 18 L Anion Gap 23.0 H BUN 27 H Creatinine 1.7 H Glucose 209 H Hemoglobin A1c Uric Acid 10.0 H Phosphorus Total Bilirubin 1.3 H Direct Bilirubin 0.4 H AST 145 H ALT 126 H Lactate Dehydrogenase 479 H Troponin T 0.08 H* Albumin Globulin Albumin/Globulin Ratio Digoxin 2.1 H* 02/21/17 03:48 WBC RBC Hgb Hct RDW Gran % Lymph % (Auto) Gran # Lymph # (Auto) Potassium Chloride 95 L Carbon Dioxide Anion Gap 17.0 H BUN 32 H Creatinine 1.9 H Glucose 200 H Hemoglobin A1c 7.4 H Uric Acid 11.3 H Phosphorus 4.6 H Total Bilirubin 1.4 H Direct Bilirubin 0.5 H AST 970 H ALT 760 H Lactate Dehydrogenase 995 H Troponin T Albumin Globulin 4.1 H Albumin/Globulin Ratio 0.9 L Digoxin February 21: Digoxin level remains elevated at 2.1 Chest x-ray: Shows improvement in cardiomegaly. Pulmonary vessels have returned to near normal in caliber. Mild airspace disease in the upper perihilar regions which is new, possibly consistent with aspiration pneumonia. EKG showed normal sinus rhythm with first-degree AV block, and one PVC, rate of 84. Significant LVH. Intraventricular conduction delay. 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 On quality assurance monitor final, the patient's heart rate occasionally drops down below 50 , and then he does appear to have a pacemaker function that kicks in, from his AICD. February 20: CBC differential: Shows 8300 granulocytes. Lymphocytes are low at 900. Next Digoxin is high at 2.3 Chest x-ray: No official report yet, but to my reading shows diffuse pulmonary vascular congestion. February 09: PFTs: Mild airflow obstruction January 20, 2017: Echo cardiogram: Aortic root sclerosis. Moderate aortic leaflet calcification. Moderate LV enlargement with severe global systolic dysfunction , ejection fraction 15-20%. Mild mitral regurgitation. Passive pulmonary hypertension. Meds: Medications Acetaminophen (Tylenol) 650 mg PO Q6HP PRN PRN Reason: PAIN/FEVER > 101 Albuterol Sulfate (Ventolin) 2.5 mg NEB Q4HRT PRN PRN Reason: Shortness Of Breath Or Wheezing Aspirin (Aspirin) 81 mg PO DAILY [facility] Last Admin: 02/22/17 09:50 Dose: 81 mg Carvedilol (Coreg) 3.125 mg PO BIDCC [facility] Last Admin: 02/22/17 09:52 Dose: 3.125 mg Clopidogrel Bisulfate (Plavix) 75 mg PO DAILY [facility] Last Admin: 02/22/17 09:48 Dose: 75 mg Dextrose (Dextrose 50%) 0 ml IV UD PRN PRN Reason: Hypoglycemia Diagnostic Test (Pha) (Accu-Chek) 1 each FS ACHS [facility] Last Admin: 02/22/17 08:40 Dose: 1 each Digoxin (Lanoxin) 125 mcg PO Q48H [facility] Last Admin: 02/22/17 09:59 Dose: 125 mcg Docusate Sodium (Colace) 100 mg PO BID PRN PRN Reason: Constipation Heparin Sodium (Porcine) (Heparin) 5,000 unit SQ Q12 [facility] Last Admin: 02/22/17 09:46 Dose: 5,000 unit Nitroglycerin/Dextrose (Nitroglycerin/D5w) 25 mg in 250 mls @ 3 mls/hr IV .Q24H [facility]; 5 MCG/MIN PRN Reason: Protocol Last Admin: 02/22/17 01:42 Dose: Not Given Sodium Chloride (Sodium Chloride 0.9%) 250 mls @ 20 mls/hr IV .[id number] [facility] Last Admin: 02/22/17 02:46 Dose: 20 mls/hr Dobutamine HCl/Dextrose 250 mg (/ Premix) 250 mls @ 1.89 mls/hr IV .Q24H [facility]; 0.5 MCG/KG/MIN PRN Reason: Protocol Last Admin: 02/22/17 07:08 Dose: 10 mcg/kg/min, 37.93 mls/hr Sodium Chloride (Sodium Chloride 0.9%) 250 mls @ 20 mls/hr IV .[id number] [facility] Last Admin: 02/21/17 21:22 Dose: Not Given Potassium Chloride 40 meq/ (Dextrose) 520 mls @ 130 mls/hr IV ONCE ONE Stop: 02/22/17 12:29 Last Admin: 02/22/17 09:58 Dose: 130 mls/hr Insulin Human Lispro (Humalog) 0 unit SQ ACHS [facility] PRN Reason: Protocol Last Admin: 02/22/17 08:40 Dose: 2 unit Magnesium Hydroxide (Milk Of Magnesia) 30 ml PO DAILYP PRN PRN Reason: Constipation Morphine Sulfate (Morphine) 2 mg IV Q5MIN PRN PRN Reason: Shortness Of Breath Last Admin: 02/21/17 03:00 Dose: 2 mg Naloxone HCl (Narcan) 0.1 mg IV Q2MIN PRN PRN Reason: Opiate Reversal Nitroglycerin (Nitrostat) 0.4 mg SL Q5M PRN PRN Reason: Chest Pain Ondansetron HCl (Zofran) 4 mg IV Q4HP PRN PRN Reason: Nausea And Vomiting Simvastatin (Zocor) 20 mg PO HS [facility] Last Admin: 02/21/17 21:20 Dose: 20 mg Torsemide (Demadex) 10 mg PO BIDD [facility] Medical - PN: A/P - Time Spent With Patient Total time spent is greater than 50% in coordination of care (as documented) at patient's floor/unit and/or counseling patient: Greater than 35 minutes (1) CHF (congestive heart failure), NYHA class IV Status: Acute Current Visit: Yes (2) CHF exacerbation Status: Acute Current Visit: Yes (3) Diabetes Status: Chronic Current Visit: No (4) History of implantable cardioverter-defibrillator (ICD) placement Problem details: 04/15/2014 Dr Henry Status: Chronic Current Visit: No (5) Ischemic cardiomyopathy Problem details: with mild CHF 10/13 Status: Chronic Current Visit: No (6) Pneumonia, aspiration Status: Acute Current Visit: Yes - Narrative A/P Narrative: #1. Cardiac. -He presents with worsening CHF symptoms. He has known severe systolic dysfunction, due to ischemic cardiomyopathy. He may have ongoing underlying ischemia. He was to see cardiology on February 28, Dr. Arcos, I believe. He previously saw Dr. Gray in July, before he retired. -He has an AICD in place, and apparently a functioning pacemaker, although I was told earlier that the pacemaker did not work. -He has diuresed significantly over the last 2 days, and is now about 5 L negative. Respiratory distress has resolved. Unfortunately, we are still fighting hypotension, and now worsening renal function. He does not appear to need the BiPAP at this point. -He is at high risk for orthostasis, and therefore falls. Physical therapy is working with him. Lasix drip has been discontinued. We will reinitiate low- dose torsemide at some point, to try to prevent reaccumulation of fluid. -Potassium is low this morning, and is replaced IV. -I reviewed with the patient and his daughter today, that it is critical once he gets home, to weigh every morning, keep a diary, and report any significant changes in weight, generally of greater than 1 pound. -Dobutamine will need to be turned off by tomorrow, so we will start weaning today. -He has an appointment to see Dr. Arcos on February 28, and may ultimately need, if they still want aggressive management, to see if we can send him up to the CHF center with Dr. Maldonado in [place]. -Coronary disease, ischemic cardiomyopathy. -Plavix was added, regarding risk of clots with his low ejection fraction. Torsemide will be restarted tomorrow. Resume pravastatin. Isosorbide is on hold, regarding hypotension. Digoxin is on hold, --I reordered this, but it should be held until his level is back down to less than 0.8. Coreg --we will try to restart this at the lowest dose, if he can keep his systolic blood pressure above 90 or 100. Continue aspirin. Lisinopril is on hold, regarding hypotension. 2. Endocrine. -Type 2 diabetes. Glucose remains fairly elevated, ranging from 148-236. Continue sitagliptin. Accu-Cheks and increase sliding scale insulin. 3. Hyperlipidemia. Continue pravastatin. Consider changing to a more effective statin, such as Lipitor or Crestor. 4. Renal. Patient appears to have developed acute on chronic renal insufficiency, which either may be due to , or aggravated by, his heart failure or heart failure meds. Creatinine was normal last May, but running about 1.4 in October of this year. -Continue to monitor. Urine output has been brisk, and Lasix drip was turned off last night. -Elevated digoxin. Hold dig, and monitor levels. 5. CODE STATUS: DNR. #6. DVT prophylaxis: Subcu heparin. #7. Pulmonary/infectious disease.. -Chest x-ray from yesterday, does show suspicion of new infiltrate, possibly consistent with aspiration. White blood cell count is also elevated today. I will add Zosyn to cover for possible pneumonia. 8. GI. LFTs have been quite elevated, likely due to passive liver congestion. These are improving today. Today's visit took approximately 35 minutes so far today, to review patient's test results, interview and examine him, reviewed plan of care with the patient and his daughter, as well as staff, and write orders. Medical - PN: Qual - VTE Deep Vein Thrombosis/Pulmonary Embolism Present on Admission: No
[2017-02-22] MEDS: PIPERACILLIN SODIUM/TAZOBACTAM 2.25 GM in DEXTROSE 5% IN WATER 50 ML IV SCH ×2 (13:40→19:11)
[2017-02-22] MEDS ORDERED: TORSEMIDE 10 MG TABLET PO SCH (16:00)
[2017-02-22] MEDS: SIMVASTATIN 20 MG TABLET PO SCH (21:01)
[2017-02-23] MEDS: PIPERACILLIN SODIUM/TAZOBACTAM 2.25 GM in DEXTROSE 5% IN WATER 50 ML IV SCH ×4 (00:29→17:57)
[2017-02-23] MEDS: DOBUTamine 250 MG in PREMIX 1 BAG IV SCH ×2 (00:55→06:16)
[2017-02-23] MEDS: NITROGLYCERIN/D5W 25 MG/250 ML BOTTLE IV SCH (04:04)
[2017-02-23] MEDS: 0.9 % SODIUM CHLORIDE 250 ML IV SCH ×4 (05:16→20:31)
[2017-02-23 05:40] LABS: Basophils # (Auto) 0 K/mcL (0.0-0.3); Basophils % (Auto) 0.3 % (0.0-2.0); Eosinophils # (Auto) 0.3 K/mcL (0.0-0.7); Eosinophils % (Auto) 2.9 % (0.0-7.0); Granulocytes % (Auto) 82.2 % (38.0-78.0); Lymphocytes # (Auto) 0.8 K/mcL (1.5-4.8); Lymphocytes % (Auto) 9.1 % (15.5-49.0); Mean Cell Volume 87.5 fL (80.0-100.0); Mean Corpuscular HGB Conc 33.6 g/dL (31.0-36.0); Mean Corpuscular Hemoglobin 29.4 pg (26.0-34.0); Monocytes # (Auto) 0.5 K/mcL (0.1-0.9); Monocytes % (Auto) 5.5 % (1.0-12.0); Platelet Count 180 K/mcL (140-440); RBC 4.04 M/mcL (4.50-5.90); Red Cell Distribution Width 16.9 % (11.5-14.5)
[2017-02-23 06:56] LABS: ALT/SGPT 383 U/l (0-40); Alkaline Phosphatase 73 U/L (39-117); Bilirubin,Direct 0.5 mg/dL (0.0-0.3); Blood Urea Nitrogen 33 mg/dl (8-23); Gamma Glutamyl Transpeptidase 34 U/L (8-61); Magnesium 1.7 mg/dL (1.6-2.5); Uric Acid 8.2 mg/dL (2.5-8.0)
[2017-02-23] MEDS: INSULIN LISPRO 1 UNIT/0.01 ML UNIT SQ SCH ×4 (07:30→20:36)
[2017-02-23] MEDS ORDERED: TORSEMIDE 10 MG TABLET PO SCH (08:00)
[2017-02-23] MEDS: CARVEDILOL 3.125 MG TABLET PO SCH ×2 (08:32→17:27)
[2017-02-23] MEDS: ASPIRIN 81 MG TAB.CHEW PO SCH (08:41)
[2017-02-23] MEDS: CLOPIDOGREL 75 MG TABLET PO SCH (08:42)
[2017-02-23] MEDS: HEPARIN 5,000 UNIT/ML VIAL SQ SCH ×2 (08:42→20:36)
[2017-02-23] MEDS ORDERED: POTASSIUM CHLORIDE 40 MEQ in DEXTROSE 5% IN WATER 500 ML IV ONE (09:00)
[2017-02-23] MEDS: 0.9 % SODIUM CHLORIDE 10 ML SYRINGE IV SCH ×4 (10:05→22:00)
--- NOTE | 2017-02-23 11:23 | Internal Med Progress Note ---
Medical - PN: Subj Patient information: Note initiated : 02/23/17 at 11:22 am Patient: Alcides Lopez 82 y/o M admitted on 02/20/17 for Short of Breath/CHF Exacerbation. Interval history: February 20, 2017:History of present illness: Mr. Lopez is a 82 year old man who presented to the emergency room this evening complaining of worsening shortness of breath. His reports that he has had progressive dyspnea for at least the last month. He has a known ischemic cardiomyopathy, but apparently last saw his rn visiting, Dr. Beach , last July, who then retired. He has been seeing his primary care physician, and having his medications adjusted, but his says he is just continuing to get worse. She says he is now too weak to stand up. He is short of breath both at rest and particularly with exertion. Emergency room evaluation showed worsening renal function and hypoxia on room air down into the 80s. BNP was markedly elevated, and troponin was mildly positive. The patient is admitted for intensive management of congestive heart failure. He is quite sleepy during the time of my exam, and is rather dyspneic. His answers most questions, although he does occasionally answer a question. He denies recent fever or chills, headaches or dizziness, new eye or ear symptoms, sore throat or cough. He denies chest pain or palpitations, abdominal pain, nausea or vomiting, diarrhea or constipation. He denies dysuria. He was scheduled to establish care with a new rn visiting, Dr. Arcos, on March 02. February 21: The patient had a very difficult night. He had numerous episodes of hypotension as well as worsening hypoxia. He was transitioned from an oxygen mask to BiPAP, and did pretty well with that. He initially tolerated the nitroglycerin drip, and that seemed to help somewhat with his breathing, but eventually he started to have difficulty with hypotension, so that was weaned to off. Initially that helped with his blood pressure, but then blood pressure once again started to decrease. Early this morning he was started on a dobutamine drip, to help support his blood pressure. This morning, systolic blood pressures continue to range from 85 to about 100. Urine output was generally greater than 30 mL/h, but occasionally did dip down. Anion gap looked better this morning, but BUN and creatinine looks slightly worse. LFTs are now quite elevated. Troponin did bump this morning up to 0.08. I did contact (?), Of cardiology, at [facility], this morning. I reviewed the patient's case with him. He suggested that we titrate the dobutamine up by quite a bit, to about 7 mcg/kg/min. He also suggested an IV Lasix drip, varying from 0.1-0.4 mg/kg/h. he said that these 2 continuous drips would give the patient the best chance of diuresis without severe hypotension. These medications were started fairly early this morning. They have been titrated up over the course of the day. The patient is maintaining mean arterial pressures generally above 65. Urine output dropped quite a bit today, so the nurse ultimately bladder scan him , and found that he had over 900 mL of urine in his bladder, and that the Bergeron was malfunctioning. That Bergeron was pulled, and the new one was attempted, but 3 different nurses tried and could not get a Bergeron catheter placed. -Otherwise, the patient says his breathing is much easier today. He has been awake and alert today, and his sons have arrived from out of town. He has periodically taken the BiPAP off, to eat and drink, and has tolerated that fairly well also. February 22: Today, the patient notes he is feeling quite a bit better. He tolerates being off the BiPAP is fine, and is able to eat and drink and talk without much difficulty. He denies fever or chills, headaches or dizziness, chest pain or palpitations. He has not really been out of bed more than once, so is not sure about dyspnea on exertion. He does not currently feel short of breath at rest. He denies abdominal pain, nausea or vomiting, diarrhea or constipation. Yesterday they had a very difficult time with his Bergeron, but finally did replace it. He diuresed very large volumes overnight, and his Lasix drip was discontinued. Blood pressures still run rather low, on dobutamine at 13 mics per kilo per minute. February 23: Today, the patient notes he is feeling pretty well. He is sitting up in a chair , without oxygen, when I entered the room. He seems to be in good spirits. He says he really has not tried to walk yet with physical therapy, but otherwise denies headaches or dizziness, fever or chills, sore throat or cough, chest pain or shortness of breath, GI symptoms. Bergeron catheter remains in place. -He remains off the Lasix drip, but is still had quite significant urine output. I am now getting concerned that he is a little on the dry side. Systolic blood pressures range from 80-100, with mean arterial pressures generally above 60. We have been weaning the dobutamine drip overnight, but it is still going as of this morning. I have encouraged the nurses to go ahead and wean that to off. -We will continue to hold lisinopril, Coreg, and torsemide, due to relatively low blood pressures. We will try to reinstitute those, once the dobutamine has been weaned and we can see what her blood pressure we are working with. -Potassium was low this morning, so we will give him some fluids with potassium , and hopefully that will help his blood pressure as well. Liver function tests continue to improve as well. Digoxin level remains a bit elevated. - Constitutional Vitals: Vital Signs Temp Pulse Resp BP Pulse Ox 98.4 F 85 18 92/69 98 02/23/17 08:00 02/23/17 10:07 02/23/17 10:07 02/23/17 10:07 02/23/17 10:07 Period Temp Pulse Resp BP Sys/Culp Pulse Ox Last 24 Hr 97.5 F-98.9 F 29-95 15-18 73-124/47-76 90-100 Intake and Output 02/22/17 02/23/17 02/23/17 21:59 05:59 13:59 Intake Total 555 / 555 925 / 925 779 / 779 Output Total 1530 / 1530 1460 / 1460 740 / 740 Balance -975 / -975 -535 / -535 39 / 39 Weight 130 lb 12.8 oz Intake & Output: Intake & Output 02/22/17 02/23/17 02/23/17 21:59 05:59 13:59 Intake Total 555 / 555 925 / 925 779 / 779 Output Total 1530 / 1530 1460 / 1460 740 / 740 Balance -975 / -975 -535 / -535 39 / 39 Weight 130 lb 12.8 oz Intake: IV 555 / 555 925 / 925 79 / 79 Sodium Chloride 0.9% 250 250 / 250 250 / 250 ml @ 20 mls/hr IV . [id number] [facility] Rx#:[id number] Dobutrex 250 mg In Premix 205 / 205 105 / 105 / 1 Bag @ 0.5 MCG/KG/MIN 1 .89 mls/hr IV .Q24H [facility] Rx#:[id number] Zosyn 2.25 gm In Dextrose 100 / 100 50 / 50 50 / 50 5% in Water 50 ml @ 100 mls/hr IV Q6H [facility]LA Rx#: [id number] Oral 700 / 700 Output: Urine Catheter Amount 1530 / 1530 1460 / 1460 740 / 740 Other: Meal Lunch Breakfast Percent of Meal Consumed 75% 100% Feeding Ability Independent Independent He has now diuresed about 7500 mL since admission. Current heart rate is 88, with blood pressure of 95/69 On exam, he is sitting up in a chair, and is in a good mood. Neck is supple without obvious JVD. Cardiac exam shows regular rate and rhythm. Lungs are essentially clear to auscultation. O2 saturations are around 100% on room air. Abdomen is soft and nontender. Extremities show no edema. Neurologic exam: The patient is alert and oriented, calm and cooperative. Exam is grossly nonfocal. Medical - PN: Obj Da - Labs CBC & Chem 7: 02/23/17 03:48 02/23/17 03:48 Labs: Abnormal Lab Results 02/23/17 02/23/17 02/23/17 03:48 03:48 03:48 WBC RBC 4.04 L Hgb 11.9 L Hct 35.3 L RDW 16.9 H Gran % 82.2 H Lymph % (Auto) 9.1 L Gran # Lymph # (Auto) 0.8 L Potassium 3.2 L Chloride 94 L Carbon Dioxide Anion Gap BUN 33 H Creatinine 1.6 H Glucose Hemoglobin A1c Uric Acid 8.2 H Phosphorus Total Bilirubin 1.2 H Direct Bilirubin 0.5 H AST 220 H ALT 383 H Lactate Dehydrogenase Troponin T Albumin 3.0 L Globulin Albumin/Globulin Ratio Digoxin 1.3 H 02/22/17 02/22/17 02/22/17 03:39 03:39 03:39 WBC 13.8 H RBC 4.09 L Hgb 12.0 L Hct 36.2 L RDW 16.8 H Gran % 89.5 H Lymph % (Auto) 6.4 L Gran # 12.3 H Lymph # (Auto) 0.9 L Potassium 3.1 L Chloride 93 L Carbon Dioxide Anion Gap 18.0 H BUN 46 H Creatinine 2.1 H Glucose 145 H Hemoglobin A1c Uric Acid 12.1 H Phosphorus Total Bilirubin 1.2 H Direct Bilirubin 0.4 H AST 302 H ALT 434 H Lactate Dehydrogenase 282 H Troponin T Albumin 2.9 L Globulin Albumin/Globulin Ratio Digoxin 1.2 H 02/21/17 02/21/17 02/21/17 19:31 03:48 03:48 WBC RBC Hgb Hct RDW Gran % Lymph % (Auto) Gran # Lymph # (Auto) Potassium Chloride 94 L Carbon Dioxide 18 L Anion Gap 23.0 H BUN 27 H Creatinine 1.7 H Glucose 209 H Hemoglobin A1c Uric Acid 10.0 H Phosphorus Total Bilirubin 1.3 H Direct Bilirubin 0.4 H AST 145 H ALT 126 H Lactate Dehydrogenase 479 H Troponin T 0.08 H* Albumin Globulin Albumin/Globulin Ratio Digoxin 2.1 H* 02/21/17 03:48 WBC RBC Hgb Hct RDW Gran % Lymph % (Auto) Gran # Lymph # (Auto) Potassium Chloride 95 L Carbon Dioxide Anion Gap 17.0 H BUN 32 H Creatinine 1.9 H Glucose 200 H Hemoglobin A1c 7.4 H Uric Acid 11.3 H Phosphorus 4.6 H Total Bilirubin 1.4 H Direct Bilirubin 0.5 H AST 970 H ALT 760 H Lactate Dehydrogenase 995 H Troponin T Albumin Globulin 4.1 H Albumin/Globulin Ratio 0.9 L Digoxin February 21: Digoxin level remains elevated at 2.1 Chest x-ray: Shows improvement in cardiomegaly. Pulmonary vessels have returned to near normal in caliber. Mild airspace disease in the upper perihilar regions which is new, possibly consistent with aspiration pneumonia. EKG showed normal sinus rhythm with first-degree AV block, and one PVC, rate of 84. Significant LVH. Intraventricular conduction delay. Probable old anterolateral SC. On patient monitor, the patient's heart rate occasionally drops down below 50 , and then he does appear to have a pacemaker function that kicks in, from his AICD. February 20: CBC differential: Shows 8300 granulocytes. Lymphocytes are low at 900. Next Digoxin is high at 2.3 Chest x-ray: No official report yet, but to my reading shows diffuse pulmonary vascular congestion. February 09: PFTs: Mild airflow obstruction January 20, 2017: Echo cardiogram: Aortic root sclerosis. Moderate aortic leaflet calcification. Moderate LV enlargement with severe global systolic dysfunction , ejection fraction 15-20%. Mild mitral regurgitation. Passive pulmonary hypertension. Meds: Medications Acetaminophen (Tylenol) 650 mg PO Q6HP PRN PRN Reason: PAIN/FEVER > 101 Albuterol Sulfate (Ventolin) 2.5 mg NEB Q4HRT PRN PRN Reason: Shortness Of Breath Or Wheezing Aspirin (Aspirin) 81 mg PO DAILY [facility] Last Admin: 02/23/17 08:41 Dose: 81 mg Carvedilol (Coreg) 3.125 mg PO BIDCC [facility] Last Admin: 02/23/17 08:32 Dose: Not Given Clopidogrel Bisulfate (Plavix) 75 mg PO DAILY [facility] Last Admin: 02/23/17 08:42 Dose: 75 mg Dextrose (Dextrose 50%) 0 ml IV UD PRN PRN Reason: Hypoglycemia Diagnostic Test (Pha) (Accu-Chek) 1 each FS ACHS [facility] Last Admin: 02/23/17 07:30 Dose: 1 each Docusate Sodium (Colace) 100 mg PO BID PRN PRN Reason: Constipation Heparin Sodium (Porcine) (Heparin) 5,000 unit SQ Q12 [facility] Last Admin: 02/23/17 08:42 Dose: 5,000 unit Nitroglycerin/Dextrose (Nitroglycerin/D5w) 25 mg in 250 mls @ 3 mls/hr IV .Q24H KARLA; 5 MCG/MIN PRN Reason: Protocol Last Admin: 02/23/17 04:04 Dose: Not Given Sodium Chloride (Sodium Chloride 0.9%) 250 mls @ 20 mls/hr IV .[id number] [facility] Last Admin: 02/23/17 05:16 Dose: 20 mls/hr Dobutamine HCl/Dextrose 250 mg (/ Premix) 250 mls @ 1.89 mls/hr IV .Q24H KARLA; 0.5 MCG/KG/MIN PRN Reason: Protocol Last Titration: 02/23/17 06:16 Dose: 2.5 mcg/kg/min, 9.48 mls/hr Sodium Chloride (Sodium Chloride 0.9%) 250 mls @ 20 mls/hr IV .[id number] [facility] Last Admin: 02/22/17 21:05 Dose: Not Given Piperacillin Sod/Tazobactam (Sod 2.25 gm/ Dextrose) 50 mls @ 100 mls/hr IV Q6H [facility] Last Infusion: 02/23/17 06:00 Dose: Infused Potassium Chloride 40 meq/ (Dextrose) 520 mls @ 130 mls/hr IV ONCE ONE Stop: 02/23/17 12:59 Last Admin: 02/23/17 10:01 Dose: 130 mls/hr Insulin Human Lispro (Humalog) 0 unit SQ ACHS [facility] PRN Reason: Protocol Last Admin: 02/23/17 07:30 Dose: Not Given Magnesium Hydroxide (Milk Of Magnesia) 30 ml PO DAILYP PRN PRN Reason: Constipation Morphine Sulfate (Morphine) 2 mg IV Q5MIN PRN PRN Reason: Shortness Of Breath Last Admin: 02/21/17 03:00 Dose: 2 mg Naloxone HCl (Narcan) 0.1 mg IV Q2MIN PRN PRN Reason: Opiate Reversal Nitroglycerin (Nitrostat) 0.4 mg SL Q5M PRN PRN Reason: Chest Pain Ondansetron HCl (Zofran) 4 mg IV Q4HP PRN PRN Reason: Nausea And Vomiting Simvastatin (Zocor) 20 mg PO HS [facility] Last Admin: 02/22/17 21:01 Dose: 20 mg Sodium Chloride (Saline Flush) 10 ml IV Q8 [facility] Last Admin: 02/23/17 10:05 Dose: 10 ml Medical - PN: A/P - Time Spent With Patient Total time spent is greater than 50% in coordination of care (as documented) at patient's floor/unit and/or counseling patient: Greater than 35 minutes (1) CHF (congestive heart failure), NYHA class IV Status: Acute Current Visit: Yes (2) CHF exacerbation Status: Acute Current Visit: Yes (3) Diabetes Status: Chronic Current Visit: No (4) History of implantable cardioverter-defibrillator (ICD) placement Problem details: 04/15/2014 Dr Henry Status: Chronic Current Visit: No (5) Ischemic cardiomyopathy Problem details: with mild CHF 10/13 Status: Chronic Current Visit: No (6) Pneumonia, aspiration Status: Acute Current Visit: Yes - Narrative A/P Narrative: #1. Cardiac. a) -He presents with worsening CHF symptoms. He has known severe systolic dysfunction, due to ischemic cardiomyopathy. He may have ongoing underlying ischemia. He was to see cardiology on February 28, Dr. Arcos, I believe. He previously saw Dr. Gray in July, before he retired. -He has an AICD in place, and apparently a functioning pacemaker, although I was told earlier that the pacemaker did not work. -He has diuresed significantly over the last 2 days, and is now about 7 L negative. Respiratory distress has resolved. He does not need the BiPAP at this point. -He is at high risk for orthostasis, and therefore falls. Physical therapy is working with him. Lasix drip has been discontinued. We will reinitiate low- dose torsemide at some point, to try to prevent reaccumulation of fluid, but he continues to make large amounts of urine. He will receive some IV fluids today , to try to avoid him getting too dry.. -Potassium is low this morning, and is replaced IV. -The plan is to wean him completely off dobutamine today, and this was reviewed with the patient, his daughter, and his nurse. -I reviewed with the patient and his daughter , that it is critical once he gets home, to weigh every morning, keep a diary, and report any significant changes in weight, generally of greater than 1 pound. -He has an appointment to see Dr. Arcos on February 28, and may ultimately need, if they still want aggressive management, to see if we can send him up to the CHF center with Dr. Maldonado in [place]. b) -Coronary disease, ischemic cardiomyopathy. -Plavix was added, regarding risk of clots with his low ejection fraction. Torsemide still on hold, regarding excessive urine output, and hypotension. Resumed pravastatin. Isosorbide is on hold, regarding hypotension. Digoxin is on hold, --I reordered this, but it should be held until his level is back down to less than 0.8. Coreg --we will try to restart this at the lowest dose, if he can keep his systolic blood pressure above 90 or 100. So far he has not been able to receive this, and we will plan on holding until he is weaned off the dobutamine. Continue aspirin. Lisinopril is on hold, regarding hypotension. 2. Endocrine. -Type 2 diabetes. Glucose remains fairly elevated, ranging from 121-230 Continue sitagliptin. Accu-Cheks and increased sliding scale insulin. 3. Hyperlipidemia. Continue pravastatin. Consider changing to a more effective statin, such as Lipitor or Crestor. 4. Renal. Patient appears to have developed acute on chronic renal insufficiency, which either may be due to , or aggravated by, his heart failure or heart failure meds. Creatinine was normal last May, but running about 1.4 in October of this year. -Low potassium was replaced IV today. BUN and creatinine are actually improving still. Uric acid is also better. -Elevated digoxin. Hold dig, and monitor levels. 5. CODE STATUS: DNR. #6. DVT prophylaxis: Subcu heparin. #7. Pulmonary/infectious disease.. -Chest x-ray from 02/21, does show suspicion of new infiltrate, possibly consistent with aspiration. White blood cell count is also elevated yesterday, so I added Zosyn last night. White blood cell count is improved today. -Continue with this for now.. 8. GI. LFTs have been quite elevated, likely due to passive liver congestion. This continues to improve. Today's visit took approximately 35 minutes so far today, to review patient's test results, interview and examine him, reviewed plan of care with the patient and his daughter, as well as staff, and write orders. Medical - PN: Qual - VTE Deep Vein Thrombosis/Pulmonary Embolism Present on Admission: No
[2017-02-23] MEDS: SIMVASTATIN 20 MG TABLET PO SCH (20:35)
[2017-02-24] MEDS: PIPERACILLIN SODIUM/TAZOBACTAM 2.25 GM in DEXTROSE 5% IN WATER 50 ML IV SCH ×5 (00:14→23:47)
[2017-02-24] MEDS: NITROGLYCERIN/D5W 25 MG/250 ML BOTTLE IV SCH (05:23)
[2017-02-24] MEDS: DOBUTamine 250 MG in PREMIX 1 BAG IV SCH (05:24)
[2017-02-24] MEDS: 0.9 % SODIUM CHLORIDE 250 ML IV SCH ×3 (05:24→18:10)
[2017-02-24] MEDS: 0.9 % SODIUM CHLORIDE 10 ML SYRINGE IV SCH ×4 (05:25→21:06)
[2017-02-24 06:33] LABS: Basophils # (Auto) 0 K/mcL (0.0-0.3); Basophils % (Auto) 0.5 % (0.0-2.0); Eosinophils # (Auto) 0.4 K/mcL (0.0-0.7); Eosinophils % (Auto) 5.3 % (0.0-7.0); Granulocytes % (Auto) 73.4 % (38.0-78.0); Lymphocytes # (Auto) 1.2 K/mcL (1.5-4.8); Lymphocytes % (Auto) 15.1 % (15.5-49.0); Mean Cell Volume 88.2 fL (80.0-100.0); Mean Corpuscular HGB Conc 33.9 g/dL (31.0-36.0); Mean Corpuscular Hemoglobin 29.9 pg (26.0-34.0); Monocytes # (Auto) 0.5 K/mcL (0.1-0.9); Monocytes % (Auto) 5.7 % (1.0-12.0); Platelet Count 175 K/mcL (140-440); RBC 3.89 M/mcL (4.50-5.90); Red Cell Distribution Width 17.3 % (11.5-14.5)
[2017-02-24] MEDS: INSULIN LISPRO 1 UNIT/0.01 ML UNIT SQ SCH ×4 (06:50→21:04)
[2017-02-24 07:55] LABS: ALT/SGPT 329 U/l (0-40); Alkaline Phosphatase 74 U/L (39-117); Bilirubin,Direct 0.4 mg/dL (0.0-0.3); Blood Urea Nitrogen 27 mg/dl (8-23); Gamma Glutamyl Transpeptidase 39 U/L (8-61); Magnesium 1.7 mg/dL (1.6-2.5); Uric Acid 5.2 mg/dL (2.5-8.0)
[2017-02-24] MEDS: CLOPIDOGREL 75 MG TABLET PO SCH (09:09)
[2017-02-24] MEDS: ASPIRIN 81 MG TAB.CHEW PO SCH (09:09)
[2017-02-24] MEDS: HEPARIN 5,000 UNIT/ML VIAL SQ SCH ×2 (09:10→21:03)
[2017-02-24] MEDS: CARVEDILOL 3.125 MG TABLET PO SCH ×2 (09:56→23:01)
[2017-02-24] MEDS ORDERED: POTASSIUM CHLORIDE 20 MEQ TABLET PO ONE (11:26)
[2017-02-24] MEDS ORDERED: MAGNESIUM OXIDE 400 MG TABLET PO ONE (11:31)
--- NOTE | 2017-02-24 15:24 | Internal Med Progress Note ---
Medical - PN: Subj Patient information: Note initiated : 02/24/17 at 3:24 pm Patient: Alcides Lopez 82 y/o M admitted on 02/20/17 for Short of Breath/CHF Exacerbation. Interval history: February 20, 2017:History of present illness: Mr. Lopez is a 82 year old man who presented to the emergency room this evening complaining of worsening shortness of breath. His reports that he has had progressive dyspnea for at least the last month. He has a known ischemic cardiomyopathy, but apparently last saw his ob/gyn doctor, Dr. Beach , last July, who then retired. He has been seeing his primary care physician, and having his medications adjusted, but his says he is just continuing to get worse. She says he is now too weak to stand up. He is short of breath both at rest and particularly with exertion. Emergency room evaluation showed worsening renal function and hypoxia on room air down into the 80s. BNP was markedly elevated, and troponin was mildly positive. The patient is admitted for intensive management of congestive heart failure. He is quite sleepy during the time of my exam, and is rather dyspneic. His answers most questions, although he does occasionally answer a question. He denies recent fever or chills, headaches or dizziness, new eye or ear symptoms, sore throat or cough. He denies chest pain or palpitations, abdominal pain, nausea or vomiting, diarrhea or constipation. He denies dysuria. He was scheduled to establish care with a new ob/gyn doctor, Dr. Arcos, on March 02. February 21: The patient had a very difficult night. He had numerous episodes of hypotension as well as worsening hypoxia. He was transitioned from an oxygen mask to BiPAP, and did pretty well with that. He initially tolerated the nitroglycerin drip, and that seemed to help somewhat with his breathing, but eventually he started to have difficulty with hypotension, so that was weaned to off. Initially that helped with his blood pressure, but then blood pressure once again started to decrease. Early this morning he was started on a dobutamine drip, to help support his blood pressure. This morning, systolic blood pressures continue to range from 85 to about 100. Urine output was generally greater than 30 mL/h, but occasionally did dip down. Anion gap looked better this morning, but BUN and creatinine looks slightly worse. LFTs are now quite elevated. Troponin did bump this morning up to 0.08. I did contact (?), Of cardiology, at [facility], this morning. I reviewed the patient's case with him. He suggested that we titrate the dobutamine up by quite a bit, to about 7 mcg/kg/min. He also suggested an IV Lasix drip, varying from 0.1-0.4 mg/kg/h. he said that these 2 continuous drips would give the patient the best chance of diuresis without severe hypotension. These medications were started fairly early this morning. They have been titrated up over the course of the day. The patient is maintaining mean arterial pressures generally above 65. Urine output dropped quite a bit today, so the nurse ultimately bladder scan him , and found that he had over 900 mL of urine in his bladder, and that the Bergeron was malfunctioning. That Bergeron was pulled, and the new one was attempted, but 3 different nurses tried and could not get a Bergeron catheter placed. -Otherwise, the patient says his breathing is much easier today. He has been awake and alert today, and his sons have arrived from out of town. He has periodically taken the BiPAP off, to eat and drink, and has tolerated that fairly well also. February 22: Today, the patient notes he is feeling quite a bit better. He tolerates being off the BiPAP is fine, and is able to eat and drink and talk without much difficulty. He denies fever or chills, headaches or dizziness, chest pain or palpitations. He has not really been out of bed more than once, so is not sure about dyspnea on exertion. He does not currently feel short of breath at rest. He denies abdominal pain, nausea or vomiting, diarrhea or constipation. Yesterday they had a very difficult time with his Bergeron, but finally did replace it. He diuresed very large volumes overnight, and his Lasix drip was discontinued. Blood pressures still run rather low, on dobutamine at 13 mics per kilo per minute. February 23: Today, the patient notes he is feeling pretty well. He is sitting up in a chair , without oxygen, when I entered the room. He seems to be in good spirits. He says he really has not tried to walk yet with physical therapy, but otherwise denies headaches or dizziness, fever or chills, sore throat or cough, chest pain or shortness of breath, GI symptoms. Bergeron catheter remains in place. -He remains off the Lasix drip, but is still had quite significant urine output. I am now getting concerned that he is a little on the dry side. Systolic blood pressures range from 80-100, with mean arterial pressures generally above 60. We have been weaning the dobutamine drip overnight, but it is still going as of this morning. I have encouraged the nurses to go ahead and wean that to off. -We will continue to hold lisinopril, Coreg, and torsemide, due to relatively low blood pressures. We will try to reinstitute those, once the dobutamine has been weaned and we can see what her blood pressure we are working with. -Potassium was low this morning, so we will give him some fluids with potassium , and hopefully that will help his blood pressure as well. Liver function tests continue to improve as well. Digoxin level remains a bit elevated. February 24: The patient was weaned off of his dobutamine yesterday afternoon. He has done quite well since then. Blood pressures today are ranging from 80-296/59-74, with mean arterial pressures above 70. O2 saturation is now 95-100% on room air. Patient was started back on Coreg this morning, and seems to have tolerated his first dose. He has continued to have brisk urine output, with over 3 L urine output yesterday. He is positive about 475 mL so far today. He was admitted with a weight of 139 pounds, and yesterday had dropped to 130. Today he is back at 131. -Patient continues on Zosyn for apparent pneumonia on chest x-ray. His white blood cell count is normal today. -BUN and creatinine continue to improve. Elevated liver function enzymes are also improving. The patient is sitting up in bed with pillows propped behind him and his feet dangling. He is eating lunch. He says he is feeling fine. He notes decreased dyspnea with exertion. He has stood up a couple of times today to transfer from bed to chair or chair to commode, and has tolerated that relatively well. He otherwise denies fever or chills, chest pain or palpitations, shortness of breath at rest. He has an intermittent cough, which has not brought up much. He denies abdominal pain, nausea or vomiting, diarrhea or constipation. Bergeron catheter remains in place. - Constitutional Vitals: Vital Signs Temp Pulse Resp BP Pulse Ox 99.0 F H 86 16 90/68 94 02/24/17 12:01 02/24/17 12:01 02/24/17 12:01 02/24/17 12:01 02/24/17 12:01 Period Temp Pulse Resp BP Sys/Culp Pulse Ox Last 24 Hr 97.5 F-99.0 F 76-88 15-16 80-130/44-116 91-100 Intake and Output 02/24/17 02/24/17 02/24/17 05:59 13:59 21:59 Intake Total 320 / 320 1345 / 1345 Output Total 1140 / 1140 870 / 870 Balance -820 / -820 475 / 475 Weight 131 lb 6.4 oz Patient Weight 02/25/17 05:59 Weight 131 lb 6.4 oz Intake and output so far today: 1345 in, 870 out, +475. I and O balance since admission, -7661 mL Intake & Output: Intake & Output 02/24/17 02/24/17 02/24/17 05:59 13:59 21:59 Intake Total 320 / 320 1345 / 1345 Output Total 1140 / 1140 870 / 870 Balance -820 / -820 475 / 475 Weight 131 lb 6.4 oz Intake: IV 50 / 50 100 / 100 Zosyn 2.25 gm In Dextrose 50 / 50 100 / 100 5% in Water 50 ml @ 100 mls/hr IV Q6H [facility] Rx#: [id number] Oral 270 / 270 1245 / 1245 Output: Urine Catheter Amount 1140 / 1140 870 / 870 Other: Meal Lunch Percent of Meal Consumed 100% Feeding Ability Independent On exam, he is a frail-appearing elderly man, in no acute distress. Neck is supple without obvious JVD. Cardiac exam shows regular rate and rhythm. Lungs are essentially clear to auscultation. Abdomen is soft and nontender. Extremities show no edema. Medical - PN: Obj Da - Labs CBC & Chem 7: 02/24/17 03:50 02/24/17 03:50 Labs: Abnormal Lab Results 02/24/17 02/24/17 02/23/17 03:50 03:50 03:48 WBC RBC 3.89 L Hgb 11.6 L Hct 34.3 L RDW 17.3 H Gran % Lymph % (Auto) 15.1 L Gran # Lymph # (Auto) 1.2 L Potassium Chloride 94 L Anion Gap BUN 27 H Creatinine 1.4 H Glucose Uric Acid Phosphorus 2.6 L Total Bilirubin 1.1 H Direct Bilirubin 0.4 H AST 180 H ALT 329 H Lactate Dehydrogenase Albumin 3.0 L Digoxin 1.3 H 02/23/17 02/23/17 02/22/17 03:48 03:48 03:39 WBC RBC 4.04 L Hgb 11.9 L Hct 35.3 L RDW 16.9 H Gran % 82.2 H Lymph % (Auto) 9.1 L Gran # Lymph # (Auto) 0.8 L Potassium 3.2 L Chloride 94 L Anion Gap BUN 33 H Creatinine 1.6 H Glucose Uric Acid 8.2 H Phosphorus Total Bilirubin 1.2 H Direct Bilirubin 0.5 H AST 220 H ALT 383 H Lactate Dehydrogenase Albumin 3.0 L Digoxin 1.2 H 02/22/17 02/22/17 03:39 03:39 WBC 13.8 H RBC 4.09 L Hgb 12.0 L Hct 36.2 L RDW 16.8 H Gran % 89.5 H Lymph % (Auto) 6.4 L Gran # 12.3 H Lymph # (Auto) 0.9 L Potassium 3.1 L Chloride 93 L Anion Gap 18.0 H BUN 46 H Creatinine 2.1 H Glucose 145 H Uric Acid 12.1 H Phosphorus Total Bilirubin 1.2 H Direct Bilirubin 0.4 H AST 302 H ALT 434 H Lactate Dehydrogenase 282 H Albumin 2.9 L Digoxin February 24: Granulocyte count is normal today at 5900. Lymphocyte count is a bit low at 1200. Improved from yesterday. February 21: Digoxin level remains elevated at 2.1 Chest x-ray: Shows improvement in cardiomegaly. Pulmonary vessels have returned to near normal in caliber. Mild airspace disease in the upper perihilar regions which is new, possibly consistent with aspiration pneumonia. EKG showed normal sinus rhythm with first-degree AV block, and one PVC, rate of 84. Significant LVH. Intraventricular conduction delay. Probable old anterolateral OR. On campus monitor, the patient's heart rate occasionally drops down below 50 , and then he does appear to have a pacemaker function that kicks in, from his AICD. February 20: CBC differential: Shows 8300 granulocytes. Lymphocytes are low at 900. Next Digoxin is high at 2.3 Chest x-ray: No official report yet, but to my reading shows diffuse pulmonary vascular congestion. February 09: PFTs: Mild airflow obstruction January 20, 2017: Echo cardiogram: Aortic root sclerosis. Moderate aortic leaflet calcification. Moderate LV enlargement with severe global systolic dysfunction , ejection fraction 15-20%. Mild mitral regurgitation. Passive pulmonary hypertension. Meds: Medications Acetaminophen (Tylenol) 650 mg PO Q6HP PRN PRN Reason: PAIN/FEVER > 101 Last Admin: 02/24/17 09:10 Dose: 650 mg Albuterol Sulfate (Ventolin) 2.5 mg NEB Q4HRT PRN PRN Reason: Shortness Of Breath Or Wheezing Aspirin (Aspirin) 81 mg PO DAILY [facility] Last Admin: 02/24/17 09:09 Dose: 81 mg [facility] ([facility]g) [facility] Last Admin: 02/24/17 09:56 Dose: 3.125 mg Clopidogrel Bisulfate (Plavix) 75 mg PO DAILY [facility] Last Admin: 02/24/17 09:09 Dose: 75 mg Dextrose (Dextrose 50%) 0 ml IV UD PRN PRN Reason: Hypoglycemia Diagnostic Test (Pha) (Accu-Chek) 1 each FS ACHS [facility] Last Admin: 02/24/17 12:09 Dose: 1 each Docusate Sodium (Colace) 100 mg PO BID PRN PRN Reason: Constipation Heparin Sodium (Porcine) (Heparin) 5,000 unit SQ Q12 [facility] Last Admin: 02/24/17 09:10 Dose: 5,000 unit Nitroglycerin/Dextrose (Nitroglycerin/D5w) 25 mg in 250 mls @ 3 mls/hr IV .Q24H [facility]; 5 MCG/MIN PRN Reason: Protocol Last Admin: 02/24/17 05:23 Dose: Not Given Dobutamine HCl/Dextrose 250 mg (/ Premix) 250 mls @ 1.89 mls/hr IV .Q24H [facility]; 0.5 MCG/KG/MIN PRN Reason: Protocol Last Admin: 02/24/17 05:24 Dose: Not Given Sodium Chloride (Sodium Chloride 0.9%) 250 mls @ 20 mls/hr IV .[id number] [facility] Last Admin: 02/23/17 20:31 Dose: Not Given Piperacillin Sod/Tazobactam (Sod 2.25 gm/ Dextrose) 50 mls @ 100 mls/hr IV Q6H [facility] Last Infusion: 02/24/17 13:15 Dose: Infused Insulin Human Lispro (Humalog) 0 unit SQ ACHS [facility] PRN Reason: Protocol Last Admin: 02/24/17 12:10 Dose: 6 unit Magnesium Hydroxide (Milk Of Magnesia) 30 ml PO DAILYP PRN PRN Reason: Constipation Magnesium Oxide (Magnesium Oxide) 400 mg PO DAILY [facility] Morphine Sulfate (Morphine) 2 mg IV Q5MIN PRN PRN Reason: Shortness Of Breath Last Admin: 02/21/17 03:00 Dose: 2 mg Naloxone HCl (Narcan) 0.1 mg IV Q2MIN PRN PRN Reason: Opiate Reversal Nitroglycerin (Nitrostat) 0.4 mg SL Q5M PRN PRN Reason: Chest Pain Ondansetron HCl (Zofran) 4 mg IV Q4HP PRN PRN Reason: Nausea And Vomiting Potassium Chloride (Kdur) 20 meq PO QAMCC [facility] Simvastatin (Zocor) 20 mg PO HS [facility] Last Admin: 02/23/17 20:35 Dose: 20 mg Sodium Chloride (Saline Flush) 10 ml IV Q8 [facility] Last Admin: 02/24/17 12:10 Dose: 10 ml Medical - PN: A/P - Time Spent With Patient Total time spent is greater than 50% in coordination of care (as documented) at patient's floor/unit and/or counseling patient: 25 - 35 minutes (1) CHF (congestive heart failure), NYHA class IV Status: Acute Current Visit: Yes (2) CHF exacerbation Status: Acute Current Visit: Yes (3) Diabetes Status: Chronic Current Visit: No (4) History of implantable cardioverter-defibrillator (ICD) placement Problem details: 04/15/2014 Dr Henry Status: Chronic Current Visit: No (5) Ischemic cardiomyopathy Problem details: with mild CHF 10/13 Status: Chronic Current Visit: No (6) Pneumonia, aspiration Status: Acute Current Visit: Yes - Narrative A/P Narrative: #1. Cardiac. a) -He presents with worsening CHF symptoms. He has known severe systolic dysfunction, due to ischemic cardiomyopathy. He may have ongoing underlying ischemia. He was to see cardiology on February 28, Dr. Arcos, I believe. He previously saw Dr. Gray in July, before he retired. -He has an AICD in place, and apparently a functioning pacemaker, although I was told earlier that the pacemaker did not work. -He has diuresed significantly over the last 2 days, and is now about 7 L negative. Respiratory distress has resolved. -He is at high risk for orthostasis, and therefore falls. Physical therapy is working with him. Lasix drip has been discontinued. - We will reinitiate low-dose torsemide at some point, to try to prevent reaccumulation of fluid, but he continues to make large amounts of urine. He will receive some IV fluids today, with IV Zosyn.. -Potassium is low this morning, and is early. -I reviewed with the patient and his daughter , that it is critical once he gets home, to weigh every morning, keep a diary, and report any significant changes in weight, generally of greater than 1 pound. -He has an appointment to see Dr. Arcos on February 28, and may ultimately need, if they still want aggressive management, to see if we can send him up to the CHF center with Dr. Maldonado in [place]. b) -Coronary disease, ischemic cardiomyopathy. -Plavix was added, regarding risk of clots with his low ejection fraction. -Torsemide still on hold, regarding excessive urine output, and hypotension. -Resumed pravastatin or simvastatin.. -Isosorbide is on hold, regarding hypotension. -Digoxin is on hold, -- it should be held until his level is back down to less than 0.8. -Coreg --we will restart this at the lowest dose, if he can keep his systolic blood pressure above 90 or 100. Continue aspirin. Lisinopril is on hold, regarding hypotension. 2. Endocrine. -Type 2 diabetes. Glucose proving, ranging from 102-248 Continue sitagliptin. Accu-Cheks and increased sliding scale insulin. 3. Hyperlipidemia. Continue pravastatin (Zocor here). Consider changing to a more effective statin , such as Lipitor or Crestor. 4. Renal. Patient developed acute on chronic renal insufficiency, which either may be due to , or aggravated by, his heart failure or heart failure meds. Creatinine was normal last May, but running about 1.4 in October of this year. Creatinine bumped to 2.1, but is now back down to 1.4. -Elevated digoxin. Hold dig, and monitor levels. 5. CODE STATUS: DNR. #6. DVT prophylaxis: Subcu heparin. #7. Pulmonary/infectious disease.. -Chest x-ray from 02/21, does show suspicion of new infiltrate, possibly consistent with aspiration. White blood cell count is also elevated yesterday, so I added Zosyn . White blood cell count is improved today. -Continue with this for now.. 8. GI. LFTs have been quite elevated, likely due to passive liver congestion. This continues to improve. Today's visit took approximately 30 minutes so far today, to review patient's test results, interview and examine him, reviewed plan of care with the patient and his daughter, as well as staff, and write orders. Medical - PN: Qual - VTE Deep Vein Thrombosis/Pulmonary Embolism Present on Admission: No
[2017-02-24] MEDS ORDERED: DOCUSATE SODIUM 100 MG CAPSULE PO PRN (17:55)
[2017-02-24] MEDS ORDERED: DEXTROSE 50% 50 ML VIAL IV PRN (17:55)
[2017-02-24] MEDS ORDERED: NITROGLYCERIN 0.4 MG TAB.SUBL SL PRN (17:55)
[2017-02-24] MEDS ORDERED: ACETAMINOPHEN 325 MG TABLET PO PRN (17:55)
[2017-02-24] MEDS ORDERED: NALOXONE HCL 0.4 MG/ML VIAL IV PRN (17:55)
[2017-02-24] MEDS ORDERED: ALBUTEROL SULFATE 2.5 MG/3 ML NEBULIZER NEB PRN (17:55)
[2017-02-24] MEDS ORDERED: ONDANSETRON 4 MG/2 ML VIAL IV PRN (17:55)
[2017-02-24] MEDS ORDERED: MAGNESIUM HYDROXIDE 30 ML ORAL.SUSP PO PRN (17:55)
[2017-02-24] MEDS ORDERED: PRAVASTATIN 40 MG TABLET PO SCH (21:00)
[2017-02-24] MEDS ORDERED: SIMVASTATIN 20 MG TABLET PO SCH (21:00)
[2017-02-24] MEDS: SIMVASTATIN 10 MG TABLET PO SCH (21:04)
[2017-02-25] MEDS: PIPERACILLIN SODIUM/TAZOBACTAM 2.25 GM in DEXTROSE 5% IN WATER 50 ML IV SCH ×2 (05:32→12:16)
[2017-02-25] MEDS: 0.9 % SODIUM CHLORIDE 10 ML SYRINGE IV SCH ×3 (05:32→21:13)
[2017-02-25 05:35] LABS: Basophils # (Auto) 0 K/mcL (0.0-0.3); Basophils % (Auto) 0.5 % (0.0-2.0); Eosinophils # (Auto) 0.5 K/mcL (0.0-0.7); Eosinophils % (Auto) 5.3 % (0.0-7.0); Granulocytes % (Auto) 74.9 % (38.0-78.0); Lymphocytes # (Auto) 1.1 K/mcL (1.5-4.8); Lymphocytes % (Auto) 13.1 % (15.5-49.0); Mean Cell Volume 88.4 fL (80.0-100.0); Mean Corpuscular HGB Conc 33.3 g/dL (31.0-36.0); Mean Corpuscular Hemoglobin 29.4 pg (26.0-34.0); Monocytes # (Auto) 0.5 K/mcL (0.1-0.9); Monocytes % (Auto) 6.2 % (1.0-12.0); Platelet Count 190 K/mcL (140-440); RBC 3.99 M/mcL (4.50-5.90); Red Cell Distribution Width 17.2 % (11.5-14.5)
[2017-02-25 05:52] LABS: ALT/SGPT 284 U/l (0-40); Alkaline Phosphatase 75 U/L (39-117); Bilirubin,Direct 0.3 mg/dL (0.0-0.3); Blood Urea Nitrogen 25 mg/dl (8-23); Gamma Glutamyl Transpeptidase 50 U/L (8-61); Magnesium 1.7 mg/dL (1.6-2.5); Uric Acid 4.2 mg/dL (2.5-8.0)
[2017-02-25] MEDS: INSULIN LISPRO 1 UNIT/0.01 ML UNIT SQ SCH ×4 (07:59→21:10)
[2017-02-25] MEDS ORDERED: POTASSIUM CHLORIDE 80 MEQ in DEXTROSE 5% IN WATER 1,000 ML IV ONE (08:00)
[2017-02-25] MEDS: POTASSIUM CHLORIDE 20 MEQ TABLET PO SCH (08:00)
[2017-02-25] MEDS ORDERED: POTASSIUM CHLORIDE 20 MEQ TABLET PO SCH (08:00)
[2017-02-25] MEDS: CARVEDILOL 3.125 MG TABLET PO SCH ×2 (08:00→17:16)
[2017-02-25] MEDS ORDERED: sitaGLIPtin 50 MG TABLET PO SCH (09:00)
[2017-02-25] MEDS ORDERED: VITAMIN D3 5,000 UNIT CAPSULE PO SCH (09:00)
[2017-02-25] MEDS ORDERED: MAGNESIUM OXIDE 400 MG TABLET PO SCH (09:00)
[2017-02-25] MEDS ORDERED: ASPIRIN 81 MG TAB.CHEW PO SCH (09:00)
[2017-02-25] MEDS: sitaGLIPtin 50 MG TABLET PO SCH (09:58)
[2017-02-25] MEDS: MAGNESIUM OXIDE 400 MG TABLET PO SCH (09:58)
[2017-02-25] MEDS: VITAMIN D3 5,000 UNIT CAPSULE PO SCH (09:58)
[2017-02-25] MEDS: ASPIRIN 81 MG TAB.CHEW PO SCH (09:59)
[2017-02-25] MEDS: CLOPIDOGREL 75 MG TABLET PO SCH (09:59)
[2017-02-25] MEDS: HEPARIN 5,000 UNIT/ML VIAL SQ SCH ×2 (09:59→21:10)
--- NOTE | 2017-02-25 11:07 | Internal Med Progress Note ---
Medical - PN: Subj Patient information: Note initiated : 02/25/17 at 11:06 am Patient: Alcides Lopez 82 y/o M admitted on 02/20/17 for Short of Breath/CHF Exacerbation. Interval history: February 20, 2017:History of present illness: Mr. Lopez is a 82 year old man who presented to the emergency room this evening complaining of worsening shortness of breath. His reports that he has had progressive dyspnea for at least the last month. He has a known ischemic cardiomyopathy, but apparently last saw his track laminating machine tender, Dr. Beach , last July, who then retired. He has been seeing his primary care physician, and having his medications adjusted, but his says he is just continuing to get worse. She says he is now too weak to stand up. He is short of breath both at rest and particularly with exertion. Emergency room evaluation showed worsening renal function and hypoxia on room air down into the 80s. BNP was markedly elevated, and troponin was mildly positive. The patient is admitted for intensive management of congestive heart failure. He is quite sleepy during the time of my exam, and is rather dyspneic. His answers most questions, although he does occasionally answer a question. He denies recent fever or chills, headaches or dizziness, new eye or ear symptoms, sore throat or cough. He denies chest pain or palpitations, abdominal pain, nausea or vomiting, diarrhea or constipation. He denies dysuria. He was scheduled to establish care with a new track laminating machine tender, Dr. Arcos, on March 02. February 21: The patient had a very difficult night. He had numerous episodes of hypotension as well as worsening hypoxia. He was transitioned from an oxygen mask to BiPAP, and did pretty well with that. He initially tolerated the nitroglycerin drip, and that seemed to help somewhat with his breathing, but eventually he started to have difficulty with hypotension, so that was weaned to off. Initially that helped with his blood pressure, but then blood pressure once again started to decrease. Early this morning he was started on a dobutamine drip, to help support his blood pressure. This morning, systolic blood pressures continue to range from 85 to about 100. Urine output was generally greater than 30 mL/h, but occasionally did dip down. Anion gap looked better this morning, but BUN and creatinine looks slightly worse. LFTs are now quite elevated. Troponin did bump this morning up to 0.08. I did contact (?), Of cardiology, at [facility], this morning. I reviewed the patient's case with him. He suggested that we titrate the dobutamine up by quite a bit, to about 7 mcg/kg/min. He also suggested an IV Lasix drip, varying from 0.1-0.4 mg/kg/h. he said that these 2 continuous drips would give the patient the best chance of diuresis without severe hypotension. These medications were started fairly early this morning. They have been titrated up over the course of the day. The patient is maintaining mean arterial pressures generally above 65. Urine output dropped quite a bit today, so the nurse ultimately bladder scan him , and found that he had over 900 mL of urine in his bladder, and that the Bergeron was malfunctioning. That Bergeron was pulled, and the new one was attempted, but 3 different nurses tried and could not get a Bergeron catheter placed. -Otherwise, the patient says his breathing is much easier today. He has been awake and alert today, and his sons have arrived from out of town. He has periodically taken the BiPAP off, to eat and drink, and has tolerated that fairly well also. February 22: Today, the patient notes he is feeling quite a bit better. He tolerates being off the BiPAP is fine, and is able to eat and drink and talk without much difficulty. He denies fever or chills, headaches or dizziness, chest pain or palpitations. He has not really been out of bed more than once, so is not sure about dyspnea on exertion. He does not currently feel short of breath at rest. He denies abdominal pain, nausea or vomiting, diarrhea or constipation. Yesterday they had a very difficult time with his Bergeron, but finally did replace it. He diuresed very large volumes overnight, and his Lasix drip was discontinued. Blood pressures still run rather low, on dobutamine at 13 mics per kilo per minute. February 23: Today, the patient notes he is feeling pretty well. He is sitting up in a chair , without oxygen, when I entered the room. He seems to be in good spirits. He says he really has not tried to walk yet with physical therapy, but otherwise denies headaches or dizziness, fever or chills, sore throat or cough, chest pain or shortness of breath, GI symptoms. Bergeron catheter remains in place. -He remains off the Lasix drip, but is still had quite significant urine output. I am now getting concerned that he is a little on the dry side. Systolic blood pressures range from 80-100, with mean arterial pressures generally above 60. We have been weaning the dobutamine drip overnight, but it is still going as of this morning. I have encouraged the nurses to go ahead and wean that to off. -We will continue to hold lisinopril, Coreg, and torsemide, due to relatively low blood pressures. We will try to reinstitute those, once the dobutamine has been weaned and we can see what her blood pressure we are working with. -Potassium was low this morning, so we will give him some fluids with potassium , and hopefully that will help his blood pressure as well. Liver function tests continue to improve as well. Digoxin level remains a bit elevated. February 24: The patient was weaned off of his dobutamine yesterday afternoon. He has done quite well since then. Blood pressures today are ranging from 80-296/59-74, with mean arterial pressures above 70. O2 saturation is now 95-100% on room air. Patient was started back on Coreg this morning, and seems to have tolerated his first dose. He has continued to have brisk urine output, with over 3 L urine output yesterday. He is positive about 475 mL so far today. He was admitted with a weight of 139 pounds, and yesterday had dropped to 130. Today he is back at 131. -Patient continues on Zosyn for apparent pneumonia on chest x-ray. His white blood cell count is normal today. -BUN and creatinine continue to improve. Elevated liver function enzymes are also improving. The patient is sitting up in bed with pillows propped behind him and his feet dangling. He is eating lunch. He says he is feeling fine. He notes decreased dyspnea with exertion. He has stood up a couple of times today to transfer from bed to chair or chair to commode, and has tolerated that relatively well. He otherwise denies fever or chills, chest pain or palpitations, shortness of breath at rest. He has an intermittent cough, which has not brought up much. He denies abdominal pain, nausea or vomiting, diarrhea or constipation. Bergeron catheter remains in place. February 25: -The patient remains off of diuretics, and off of dobutamine. He is generally maintaining systolic blood pressures between 82 and 100, and maps of 62-82. He did tolerate the a.m. dose of Coreg yesterday, but blood pressure was too low to receive a dose last night. Torsemide and lisinopril remain on hold, because his blood pressures have been so well. -He continued to diurese well beyond the time that the Lasix drip was turned off. I had concerns that we had over diuresed him. He did receive some IV fluids yesterday with potassium supplements. He did regain a little bit of fluid. It appears that overall he diuresed about 8500 mL, but that has dropped to 7890 at this time. Weight was 139 pounds on arrival, and dropped to a low of 130. Weight is back to 133 pounds today, and this may be a good weight for him. -He is on Zosyn for apparent aspiration pneumonia, but continues to deny cough, fever, shortness of breath. -He says he is feeling quite well today. He did get up today and walk 15 or 20 steps with a walker. He says he did not feel particularly dizzy or weak at that time. He denies dyspnea with exertion, or orthopnea. He denies chest pain or palpitations, fever or chills, abdominal symptoms. -Bergeron catheter was removed yesterday, but patient once again had urinary retention, so that was reinserted. He may end up needing either evaluation, or need to go home with a catheter, and have evaluation later. -Renal and liver function test have continued to look better every day. - Constitutional Vitals: Vital Signs Temp Pulse Resp BP Pulse Ox 98.2 F 83 16 91/63 98 02/25/17 07:55 02/24/17 20:00 02/25/17 07:55 02/25/17 09:15 02/25/17 07:55 Period Temp Pulse Resp BP Sys/Culp Pulse Ox Last 24 Hr 97.4 F-99.1 F 83-87 16-18 82-103/52-72 94-100 Intake and Output 02/24/17 02/25/17 02/25/17 21:59 05:59 13:59 Intake Total 290 / 290 50 / 50 630 / 630 Output Total 1200 / 1200 Balance 290 / 290 -1150 / -1150 630 / 630 Weight 133 lb 3.2 oz Intake & Output: Intake & Output 02/24/17 02/25/17 02/25/17 21:59 05:59 13:59 Intake Total 290 / 290 50 / 50 630 / 630 Output Total 1200 / 1200 Balance 290 / 290 -1150 / -1150 630 / 630 Weight 133 lb 3.2 oz Intake: IV 50 / 50 50 / 50 50 / 50 Zosyn 2.25 gm In Dextrose 50 / 50 50 / 50 50 / 50 5% in Water 50 ml @ 100 mls/hr IV Q6H [facility] Rx#: [id number] Oral 240 / 240 580 / 580 Output: Urine Catheter Amount 1200 / 1200 Other: Percent of Meal Consumed 100% Current blood pressure is 91/63, with a mean arterial pressure of 72. Heart rate 74. This is more than an hour after receiving Coreg, 3.125 mg. O2 saturation is 98% on room air. On exam, he is a frail-appearing elderly man, in no acute distress. Neck is supple without obvious JVD. Cardiac exam shows regular rate and rhythm. Lungs are essentially clear to auscultation. Abdomen is soft and nontender. Extremities show no edema. Neurologic exam is grossly nonfocal. Medical - PN: Obj Da - Labs CBC & Chem 7: 02/25/17 04:05 02/25/17 04:05 Labs: Abnormal Lab Results 02/25/17 02/25/17 02/25/17 04:05 04:05 04:05 RBC 3.99 L Hgb 11.7 L Hct 35.2 L RDW 17.2 H Gran % Lymph % (Auto) 13.1 L Lymph # (Auto) 1.1 L Potassium Chloride BUN 25 H Creatinine Uric Acid Phosphorus Total Bilirubin Direct Bilirubin AST 139 H ALT 284 H Albumin 3.0 L Digoxin 0.9 H 02/24/17 02/24/17 02/23/17 03:50 03:50 03:48 RBC 3.89 L Hgb 11.6 L Hct 34.3 L RDW 17.3 H Gran % Lymph % (Auto) 15.1 L Lymph # (Auto) 1.2 L Potassium Chloride 94 L BUN 27 H Creatinine 1.4 H Uric Acid Phosphorus 2.6 L Total Bilirubin 1.1 H Direct Bilirubin 0.4 H AST 180 H ALT 329 H Albumin 3.0 L Digoxin 1.3 H 02/23/17 02/23/17 03:48 03:48 RBC 4.04 L Hgb 11.9 L Hct 35.3 L RDW 16.9 H Gran % 82.2 H Lymph % (Auto) 9.1 L Lymph # (Auto) 0.8 L Potassium 3.2 L Chloride 94 L BUN 33 H Creatinine 1.6 H Uric Acid 8.2 H Phosphorus Total Bilirubin 1.2 H Direct Bilirubin 0.5 H AST 220 H ALT 383 H Albumin 3.0 L Digoxin February 24: Granulocyte count is normal today at 5900. Lymphocyte count is a bit low at 1200. Improved from yesterday. February 21: Digoxin level remains elevated at 2.1 Chest x-ray: Shows improvement in cardiomegaly. Pulmonary vessels have returned to near normal in caliber. Mild airspace disease in the upper perihilar regions which is new, possibly consistent with aspiration pneumonia. EKG showed normal sinus rhythm with first-degree AV block, and one PVC, rate of 84. Significant LVH. Intraventricular conduction delay. Probable old anterolateral MN. On threat monitoring analyst, the patient's heart rate occasionally drops down below 50 , and then he does appear to have a pacemaker function that kicks in, from his AICD. February 20: CBC differential: Shows 8300 granulocytes. Lymphocytes are low at 900. Next Digoxin is high at 2.3 Chest x-ray: No official report yet, but to my reading shows diffuse pulmonary vascular congestion. February 09: PFTs: Mild airflow obstruction January 20, 2017: Echo cardiogram: Aortic root sclerosis. Moderate aortic leaflet calcification. Moderate LV enlargement with severe global systolic dysfunction , ejection fraction 15-20%. Mild mitral regurgitation. Passive pulmonary hypertension. . Meds: Medications Acetaminophen (Tylenol) 650 mg PO Q6HP PRN PRN Reason: PAIN/FEVER > 101 Albuterol Sulfate (Ventolin) 2.5 mg NEB Q4HRT PRN PRN Reason: Shortness Of Breath Or Wheezing Aspirin (Aspirin) 81 mg PO DAILY [facility] Last Admin: 02/25/17 09:59 Dose: 81 mg Carvedilol (Coreg) 3.125 mg PO BIDCC [facility] Last Admin: 02/25/17 08:00 Dose: 3.125 mg Clopidogrel Bisulfate (Plavix) 75 mg PO DAILY [facility] Last Admin: 02/25/17 09:59 Dose: 75 mg Dextrose (Dextrose 50%) 0 ml IV UD PRN PRN Reason: Hypoglycemia Diagnostic Test (Pha) (Accu-Chek) 1 each FS ACHS [facility] Last Admin: 02/25/17 07:45 Dose: 1 each Docusate Sodium (Colace) 100 mg PO BID PRN PRN Reason: Constipation Heparin Sodium (Porcine) (Heparin) 5,000 unit SQ Q12 [facility] Last Admin: 02/25/17 09:59 Dose: 5,000 unit Sodium Chloride (Sodium Chloride 0.9%) 250 mls @ 20 mls/hr IV .[id number] [facility] Last Admin: 02/24/17 18:10 Dose: Not Given Piperacillin Sod/Tazobactam (Sod 2.25 gm/ Dextrose) 50 mls @ 100 mls/hr IV Q6H [facility] Last Infusion: 02/25/17 06:05 Dose: Infused Potassium Chloride 80 meq/ (Dextrose) 1,040 mls @ 80 mls/hr IV ONCE ONE Stop: 02/25/17 20:59 Last Admin: 02/25/17 08:34 Dose: 80 mls/hr Insulin Human Lispro (Humalog) 0 unit SQ [facility] PRN Reason: Protocol Last Admin: 02/25/17 07:59 Dose: Not Given Magnesium Hydroxide (Milk Of Magnesia) 30 ml PO DAILYP PRN PRN Reason: Constipation Magnesium Oxide (Magnesium Oxide) 400 mg PO DAILY [facility] Last Admin: 02/25/17 09:58 Dose: 400 mg Morphine Sulfate (Morphine) 2 mg IV Q5MIN PRN PRN Reason: Shortness Of Breath Naloxone HCl (Narcan) 0.1 mg IV Q2MIN PRN PRN Reason: Opiate Reversal Nitroglycerin (Nitrostat) 0.4 mg SL Q5M PRN PRN Reason: Chest Pain Ondansetron HCl (Zofran) 4 mg IV Q4HP PRN PRN Reason: Nausea And Vomiting Potassium Chloride (Kdur) 20 meq [facility] Last Admin: 02/25/17 08:00 Dose: 20 meq Simvastatin (Zocor) 10 mg PO HS [facility] Last Admin: 02/24/17 21:04 Dose: 10 mg Sitagliptin Phosphate (Januvia) 50 mg PO DAILY [facility] Last Admin: 02/25/17 09:58 Dose: 50 mg Sodium Chloride (Saline Flush) 10 ml IV Q8 [facility] Last Admin: 02/25/17 05:32 Dose: 10 ml Vitamin D (Vitamin D3) 5,000 unit PO QDAY [facility] Last Admin: 02/25/17 09:58 Dose: 5,000 unit Medical - PN: A/P - Time Spent With Patient Total time spent is greater than 50% in coordination of care (as documented) at patient's floor/unit and/or counseling patient: (1) CHF (congestive heart failure), NYHA class IV Status: Acute Current Visit: Yes (2) CHF exacerbation Status: Acute Current Visit: Yes (3) Diabetes Status: Chronic Current Visit: No (4) History of implantable cardioverter-defibrillator (ICD) placement Problem details: 04/15/2014 Dr Henry Status: Chronic Current Visit: No (5) Ischemic cardiomyopathy Problem details: with mild CHF 10/13 Status: Chronic Current Visit: No (6) Pneumonia, aspiration Status: Acute Current Visit: Yes - Narrative A/P Narrative: #1. Cardiac. a) -He presents with worsening CHF symptoms. He has known severe systolic dysfunction, due to ischemic cardiomyopathy. He may have ongoing underlying ischemia. He was to see cardiology on February 28, Dr. Arcos ____ (?), I believe. He previously saw Dr. Gray in July, before he retired. He thinks he will have a follow-up with Dr. Lomas ultimately also. -He has an AICD in place, and apparently a functioning pacemaker, although I was told earlier that the pacemaker did not work. -He has diuresed significantly over the last 2 days, and is now about 7.8 L negative. Respiratory distress has resolved. -He is at high risk for orthostasis, and therefore falls. Physical therapy is working with him. Lasix drip has been discontinued. - We will reinitiate low-dose torsemide at some point, to try to prevent reaccumulation of fluid, but he continues to make large amounts of urine. He will receive some IV fluids today, with IV Zosyn.. -Potassium is low this morning, and I did order 80 mEq of potassium and 1 L of fluids. We are going to give him this over a very low rate today, and turn it off if he maintain systolic blood pressures above 90. I continue to be to be concerned about hypotension due to hypovolemia, versus reaccumulation of pulmonary vascular congestion. -I reviewed with the patient and his daughter , that it is critical once he gets home, to weigh every morning, keep a diary, and report any significant changes in weight, generally of greater than 1 pound. -He has an appointment to see Dr. Arcos on February 28, and may ultimately need, if they still want aggressive management, to see if we can send him up to the CHF center with Dr. Maldonado in [place]. b) -Coronary disease, ischemic cardiomyopathy. -Plavix was added, regarding risk of clots with his low ejection fraction. -Torsemide still on hold, regarding excessive urine output, and hypotension. -Resumed pravastatin or simvastatin.. -Isosorbide is on hold, regarding hypotension. -Digoxin is on hold, -- it should be held until his level is back down to less than 0.8. -Coreg --restarted this at the lowest dose, if he can keep his systolic blood pressure above 90 .. Continue aspirin. Lisinopril is on hold, regarding hypotension. 2. Endocrine. -Type 2 diabetes. Glucoses have been a bit labile, ranging from 103-303. Continue sitagliptin. Accu-Cheks and increased sliding scale insulin. Some of his fluids have been and D5 W. His nurse will monitor this closely today. 3. Hyperlipidemia. Continue pravastatin (Zocor here). Consider changing to a more effective statin , such as Lipitor or Crestor. 4. Renal. Patient developed acute on chronic renal insufficiency, which either may be due to , or aggravated by, his heart failure or heart failure meds. Creatinine was normal last May, but running about 1.4 in October of this year. Creatinine bumped to 2.1, but is now back down to normal. -Elevated digoxin. Hold dig, and monitor levels. 5. CODE STATUS: DNR. #6. DVT prophylaxis: Subcu heparin. #7. Pulmonary/infectious disease.. -Chest x-ray from 02/21, does show suspicion of new infiltrate, possibly consistent with aspiration. White blood cell count is also elevated yesterday, so I added Be . White blood cell count is improved today. -Continue with this for now.. 8. GI. LFTs have been quite elevated, likely due to passive liver congestion. This continues to improve. Today's visit took approximately 35 minutes so far today, to review patient's test results, interview and examine him, reviewed plan of care with the patient and his daughter, as well as staff, and write orders. Medical - PN: Qual - VTE Deep Vein Thrombosis/Pulmonary Embolism Present on Admission: No
[2017-02-25] MEDS: PIPERACILLIN SODIUM/TAZOBACTAM 3.375 GM in DEXTROSE 5% IN WATER 50 ML IV SCH (18:00)
[2017-02-25] MEDS: 0.9 % SODIUM CHLORIDE 250 ML IV SCH ×2 (18:36→20:55)
[2017-02-25] MEDS: SIMVASTATIN 10 MG TABLET PO SCH (21:13)
[2017-02-26] MEDS: PIPERACILLIN SODIUM/TAZOBACTAM 3.375 GM in DEXTROSE 5% IN WATER 50 ML IV SCH ×5 (00:01→23:34)
[2017-02-26] MEDS: 0.9 % SODIUM CHLORIDE 10 ML SYRINGE IV SCH ×5 (05:37→22:16)
[2017-02-26 05:40] LABS: Basophils # (Auto) 0.1 K/mcL (0.0-0.3); Basophils % (Auto) 0.8 % (0.0-2.0); Eosinophils # (Auto) 0.4 K/mcL (0.0-0.7); Eosinophils % (Auto) 4.8 % (0.0-7.0); Granulocytes % (Auto) 73.7 % (38.0-78.0); Lymphocytes # (Auto) 1.4 K/mcL (1.5-4.8); Lymphocytes % (Auto) 14.6 % (15.5-49.0); Mean Cell Volume 88.6 fL (80.0-100.0); Mean Corpuscular HGB Conc 33.1 g/dL (31.0-36.0); Mean Corpuscular Hemoglobin 29.3 pg (26.0-34.0); Monocytes # (Auto) 0.6 K/mcL (0.1-0.9); Monocytes % (Auto) 6.1 % (1.0-12.0); Platelet Count 191 K/mcL (140-440); RBC 3.91 M/mcL (4.50-5.90)
[2017-02-26 06:04] LABS: ALT/SGPT 229 U/l (0-40); Albumin/Globulin Ratio 0.9 (1.0-2.3); Alkaline Phosphatase 76 U/L (39-117); Bilirubin,Direct 0.3 mg/dL (0.0-0.3); Blood Urea Nitrogen 20 mg/dl (8-23); Gamma Glutamyl Transpeptidase 59 U/L (8-61); Magnesium 1.8 mg/dL (1.6-2.5); Uric Acid 3.8 mg/dL (2.5-8.0)
[2017-02-26] MEDS: 0.9 % SODIUM CHLORIDE 250 ML IV SCH ×2 (07:32→20:22)
[2017-02-26] MEDS: INSULIN LISPRO 1 UNIT/0.01 ML UNIT SQ SCH ×4 (07:34→20:29)
[2017-02-26] MEDS ORDERED: MAGNESIUM SULFATE 2 GM/50 ML BAG IV ONE (08:17)
[2017-02-26] MEDS: POTASSIUM CHLORIDE 20 MEQ TABLET PO SCH (08:37)
[2017-02-26] MEDS: CARVEDILOL 3.125 MG TABLET PO SCH ×2 (08:37→17:17)
[2017-02-26] MEDS: CLOPIDOGREL 75 MG TABLET PO SCH (10:16)
[2017-02-26] MEDS: HEPARIN 5,000 UNIT/ML VIAL SQ SCH ×2 (10:16→20:30)
[2017-02-26] MEDS: LISINOPRIL 5 MG TABLET PO SCH (10:16)
[2017-02-26] MEDS: sitaGLIPtin 50 MG TABLET PO SCH (10:16)
[2017-02-26] MEDS: MAGNESIUM OXIDE 400 MG TABLET PO SCH (10:16)
[2017-02-26] MEDS: VITAMIN D3 5,000 UNIT CAPSULE PO SCH (10:16)
[2017-02-26] MEDS: ASPIRIN 81 MG TAB.CHEW PO SCH (10:16)
[2017-02-26] MEDS ORDERED: DIGOXIN 125 MCG TABLET PO SCH (14:00)
--- NOTE | 2017-02-26 15:22 | Internal Med Progress Note ---
Medical - PN: Subj Patient information: Note initiated : 02/26/17 at 3:20 pm Service Date, if different from initiated Date: [] Patient: Alcides Lopez 82 y/o M admitted on 02/20/17 for Short of Breath/CHF Exacerbation. Chief Complaint: [] Interval history: February 20, 2017:History of present illness: Mr. Lopez is a 82 year old man who presented to the emergency room this evening complaining of worsening shortness of breath. His reports that he has had progressive dyspnea for at least the last month. 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 Beach , last July, who then retired. He has been seeing his primary care physician, and having his medications adjusted, but his says he is just continuing to get worse. She says he is now too weak to stand up. He is short of breath both at rest and particularly with exertion. Emergency room evaluation showed worsening renal function and hypoxia on room air down into the 80s. BNP was markedly elevated, and troponin was mildly positive. The patient is admitted for intensive management of congestive heart failure. He is quite sleepy during the time of my exam, and is rather dyspneic. His answers most questions, although he does occasionally answer a question. He denies recent fever or chills, headaches or dizziness, new eye or ear symptoms, sore throat or cough. He denies chest pain or palpitations, abdominal pain, nausea or vomiting, diarrhea or constipation. He denies dysuria. He was scheduled to establish care with a new hitting coach, Dr. Arcos, on March 02. February 21: The patient had a very difficult night. He had numerous episodes of hypotension as well as worsening hypoxia. He was transitioned from an oxygen mask to BiPAP, and did pretty well with that. He initially tolerated the nitroglycerin drip, and that seemed to help somewhat with his breathing, but eventually he started to have difficulty with hypotension, so that was weaned to off. Initially that helped with his blood pressure, but then blood pressure once again started to decrease. Early this morning he was started on a dobutamine drip, to help support his blood pressure. This morning, systolic blood pressures continue to range from 85 to about 100. Urine output was generally greater than 30 mL/h, but occasionally did dip down. Anion gap looked better this morning, but BUN and creatinine looks slightly worse. LFTs are now quite elevated. Troponin did bump this morning up to 0.08. I did contact (?), Of cardiology, at [facility], this morning. I reviewed the patient's case with him. He suggested that we titrate the dobutamine up by quite a bit, to about 7 mcg/kg/min. He also suggested an IV Lasix drip, varying from 0.1-0.4 mg/kg/h. he said that these 2 continuous drips would give the patient the best chance of diuresis without severe hypotension. These medications were started fairly early this morning. They have been titrated up over the course of the day. The patient is maintaining mean arterial pressures generally above 65. Urine output dropped quite a bit today, so the nurse ultimately bladder scan him , and found that he had over 900 mL of urine in his bladder, and that the Spangler was malfunctioning. That Spangler was pulled, and the new one was attempted, but 3 different nurses tried and could not get a Spangler catheter placed. -Otherwise, the patient says his breathing is much easier today. He has been awake and alert today, and his sons have arrived from out of town. He has periodically taken the BiPAP off, to eat and drink, and has tolerated that fairly well also. February 22: Today, the patient notes he is feeling quite a bit better. He tolerates being off the BiPAP is fine, and is able to eat and drink and talk without much difficulty. He denies fever or chills, headaches or dizziness, chest pain or palpitations. He has not really been out of bed more than once, so is not sure about dyspnea on exertion. He does not currently feel short of breath at rest. He denies abdominal pain, nausea or vomiting, diarrhea or constipation. Yesterday they had a very difficult time with his Spangler, but finally did replace it. He diuresed very large volumes overnight, and his Lasix drip was discontinued. Blood pressures still run rather low, on dobutamine at 13 mics per kilo per minute. February 23: Today, the patient notes he is feeling pretty well. He is sitting up in a chair , without oxygen, when I entered the room. He seems to be in good spirits. He says he really has not tried to walk yet with physical therapy, but otherwise denies headaches or dizziness, fever or chills, sore throat or cough, chest pain or shortness of breath, GI symptoms. Spangler catheter remains in place. -He remains off the Lasix drip, but is still had quite significant urine output. I am now getting concerned that he is a little on the dry side. Systolic blood pressures range from 80-100, with mean arterial pressures generally above 60. We have been weaning the dobutamine drip overnight, but it is still going as of this morning. I have encouraged the nurses to go ahead and wean that to off. -We will continue to hold lisinopril, Coreg, and torsemide, due to relatively low blood pressures. We will try to reinstitute those, once the dobutamine has been weaned and we can see what her blood pressure we are working with. -Potassium was low this morning, so we will give him some fluids with potassium , and hopefully that will help his blood pressure as well. Liver function tests continue to improve as well. Digoxin level remains a bit elevated. February 24: The patient was weaned off of his dobutamine yesterday afternoon. He has done quite well since then. Blood pressures today are ranging from 80-296/59-74, with mean arterial pressures above 70. O2 saturation is now 95-100% on room air. Patient was started back on Coreg this morning, and seems to have tolerated his first dose. He has continued to have brisk urine output, with over 3 L urine output yesterday. He is positive about 475 mL so far today. He was admitted with a weight of 139 pounds, and yesterday had dropped to 130. Today he is back at 131. -Patient continues on Zosyn for apparent pneumonia on chest x-ray. His white blood cell count is normal today. -BUN and creatinine continue to improve. Elevated liver function enzymes are also improving. The patient is sitting up in bed with pillows propped behind him and his feet dangling. He is eating lunch. He says he is feeling fine. He notes decreased dyspnea with exertion. He has stood up a couple of times today to transfer from bed to chair or chair to commode, and has tolerated that relatively well. He otherwise denies fever or chills, chest pain or palpitations, shortness of breath at rest. He has an intermittent cough, which has not brought up much. He denies abdominal pain, nausea or vomiting, diarrhea or constipation. Spangler catheter remains in place. February 25: -The patient remains off of diuretics, and off of dobutamine. He is generally maintaining systolic blood pressures between 82 and 100, and maps of 62-82. He did tolerate the a.m. dose of Coreg yesterday, but blood pressure was too low to receive a dose last night. Torsemide and lisinopril remain on hold, because his blood pressures have been so well. -He continued to diurese well beyond the time that the Lasix drip was turned off. I had concerns that we had over diuresed him. He did receive some IV fluids yesterday with potassium supplements. He did regain a little bit of fluid. It appears that overall he diuresed about 8500 mL, but that has dropped to 7890 at this time. Weight was 139 pounds on arrival, and dropped to a low of 130. Weight is back to 133 pounds today, and this may be a good weight for him. -He is on Zosyn for apparent aspiration pneumonia, but continues to deny cough, fever, shortness of breath. -He says he is feeling quite well today. He did get up today and walk 15 or 20 steps with a walker. He says he did not feel particularly dizzy or weak at that time. He denies dyspnea with exertion, or orthopnea. He denies chest pain or palpitations, fever or chills, abdominal symptoms. -Spangler catheter was removed yesterday, but patient once again had urinary retention, so that was reinserted. He may end up needing either evaluation, or need to go home with a catheter, and have evaluation later. -Renal and liver function test have continued to look better every day.\ February 26 Pt seen examined, no acute overnight events, bp remains stable in 90's and low 100's systolic, pt has no new dizziness. The patient has tolerated his dose of coreg 3.125 bid, which I will keep for now. His family at bedside, plan of care discussed with them more than 3 chr conditions addressed. see a/p for details. In brief pt with cardiogenic shock, chf, s/p lasix drip and dobutamin drip, has borderline bp, and has possible aspirational PNA, in the process of resume his home dosing of meds. Pertinent ROS: Denies headache, dizziness Denies chest pain, palpitations Denies cough or shortness of breath, Has SOB on activity. Denies abdominal pain, nausea or vomiting. - Constitutional Vitals: Vital Signs Temp Pulse Resp BP Pulse Ox 98.6 F 85 16 96/70 99 02/26/17 12:20 02/26/17 06:29 02/26/17 12:20 02/26/17 12:20 02/26/17 12:20 Period Temp Pulse Resp BP Sys/Culp Pulse Ox Last 24 Hr 97.8 F-98.6 F 80-85 16-20 90-110/57-70 95-100 Intake and Output 02/26/17 02/26/17 02/26/17 05:59 13:59 21:59 Intake Total 50 / 50 920 / 920 Output Total 1400 / 1400 850 / 850 Balance -1350 / -1350 70 / 70 Intake & Output: Intake & Output 02/26/17 02/26/17 02/26/17 05:59 13:59 21:59 Intake Total 50 / 50 920 / 920 Output Total 1400 / 1400 850 / 850 Balance -1350 / -1350 70 / 70 Intake: IV 50 / 50 100 / 100 Zosyn 3.375 gm In 50 / 50 100 / 100 Dextrose 5% in Water 50 ml @ 100 mls/hr IV Q6H [facility] Rx#:[id number] Oral 820 / 820 Output: Urine Catheter Amount 1400 / 1400 850 / 850 Other: Meal Breakfast Percent of Meal Consumed 100% # Bowel Movements 1 Exam: Constitutional; Afebrile, cooperative, alert, not in distress. Eyes- No icterus, , No periorbital swelling Ears- Ext ear normal, hearing normal to conversation. Neck- Midline trachea, supple Respiratory system: Air Entry equal on both sides, No crackles or wheezing, no rhonchi. CVS- Rate rhythm regular, S1,S2 heard, no gallop, no rub. Abdomen- Soft nontender abdomen, no organomegaly, no tenderness, no guarding or rigidity, [employer]IVE- AOOx3, moving all extremities, no gross focal deficit noted. Medical - PN: Obj Da - Labs CBC & Chem 7: 02/26/17 03:58 02/26/17 03:58 Labs: Abnormal Lab Results 02/26/17 02/26/17 02/25/17 03:58 03:58 04:05 RBC 3.91 L Hgb 11.5 L Hct 34.7 L RDW 18.0 H Lymph % (Auto) 14.6 L Lymph # (Auto) 1.4 L Chloride BUN Creatinine Phosphorus 2.1 L Total Bilirubin Direct Bilirubin AST 95 H ALT 229 H Albumin 3.0 L Albumin/Globulin Ratio 0.9 L Digoxin 0.9 H 02/25/17 02/25/17 02/24/17 04:05 04:05 03:50 RBC 3.99 L 3.89 L Hgb 11.7 L 11.6 L Hct 35.2 L 34.3 L RDW 17.2 H 17.3 H Lymph % (Auto) 13.1 L 15.1 L Lymph # (Auto) 1.1 L 1.2 L Chloride BUN 25 H Creatinine Phosphorus Total Bilirubin Direct Bilirubin AST 139 H ALT 284 H Albumin 3.0 L Albumin/Globulin Ratio Digoxin 02/24/17 03:50 RBC Hgb Hct RDW Lymph % (Auto) Lymph # (Auto) Chloride 94 L BUN 27 H Creatinine 1.4 H Phosphorus 2.6 L Total Bilirubin 1.1 H Direct Bilirubin 0.4 H AST 180 H ALT 329 H Albumin 3.0 L Albumin/Globulin Ratio Digoxin Meds: Medications Acetaminophen (Tylenol) 650 mg PO Q6HP PRN PRN Reason: PAIN/FEVER > 101 Albuterol Sulfate (Ventolin) 2.5 mg NEB Q4HRT PRN PRN Reason: Shortness Of Breath Or Wheezing Aspirin (Aspirin) 81 mg PO DAILY [facility] Last Admin: 02/26/17 10:16 Dose: 81 mg Carvedilol (Coreg) 3.125 mg PO BIDCC [facility] Last Admin: 02/26/17 08:37 Dose: 3.125 mg Clopidogrel Bisulfate (Plavix) 75 mg PO DAILY [facility] Last Admin: 02/26/17 10:16 Dose: 75 mg Dextrose (Dextrose 50%) 0 ml IV UD PRN PRN Reason: Hypoglycemia Diagnostic Test (Pha) (Accu-Chek) 1 each FS ACHS [facility] Last Admin: 02/26/17 12:28 Dose: 1 each Digoxin (Lanoxin) 125 mcg PO DAILY@1400 [facility] Last Admin: 02/26/17 13:19 Dose: 125 mcg Docusate Sodium (Colace) 100 mg PO BID PRN PRN Reason: Constipation Heparin Sodium (Porcine) (Heparin) 5,000 unit SQ Q12 [facility] Last Admin: 02/26/17 10:16 Dose: 5,000 unit Sodium Chloride (Sodium Chloride 0.9%) 250 mls @ 20 mls/hr IV .[id number] [facility] Last Admin: 02/26/17 07:32 Dose: Not Given Piperacillin Sod/Tazobactam (Sod 3.375 gm/ Dextrose) 50 mls @ 100 mls/hr IV Q6H [facility] Last Infusion: 02/26/17 13:12 Dose: Infused Insulin Human Lispro (Humalog) 0 unit SQ ACHS [facility] PRN Reason: Protocol Last Admin: 02/26/17 12:31 Dose: 4 unit Lisinopril (Zestril) 2.5 mg PO DAILY [facility] Last Admin: 02/26/17 10:16 Dose: 2.5 mg Magnesium Hydroxide (Milk Of Magnesia) 30 ml PO DAILYP PRN PRN Reason: Constipation Magnesium Oxide (Magnesium Oxide) 400 mg PO DAILY [facility] Last Admin: 02/26/17 10:16 Dose: 400 mg Morphine Sulfate (Morphine) 2 mg IV Q5MIN PRN PRN Reason: Shortness Of Breath Naloxone HCl (Narcan) 0.1 mg IV Q2MIN PRN PRN Reason: Opiate Reversal Nitroglycerin (Nitrostat) 0.4 mg SL Q5M PRN PRN Reason: Chest Pain Ondansetron HCl (Zofran) 4 mg IV Q4HP PRN PRN Reason: Nausea And Vomiting Potassium Chloride ([facility]dur) [facility] Last Admin: 02/26/17 08:37 Dose: 20 meq Simvastatin (Zocor) 10 mg PO [facility] Last Admin: 02/25/17 21:13 Dose: 10 mg Sitagliptin Phosphate (Januvia) 50 mg PO DAILY [facility] Last Admin: 02/26/17 10:16 Dose: 50 mg Sodium Chloride (Saline Flush) 10 ml IV Q8 [facility] Last Admin: 02/26/17 12:36 Dose: 10 ml Tamsulosin HCl (Flomax) 0.4 mg PO [facility] Torsemide (Demadex) 20 mg PO DAILY [facility] Vitamin D (Vitamin D3) 5,000 unit PO QDAY [facility] Last Admin: 02/26/17 10:16 Dose: 5,000 unit Medical - PN: A/P - Time Spent With Patient Total time spent is greater than 50% in coordination of care (as documented) at patient's floor/unit and/or counseling patient: - Narrative A/P Narrative: A/P Cardiogenic Shock: due to severe chf, S/P lasix drip, s/p dobutamine drip, BP now stable, pt saturating well off oxygen, Continue to monitor CAD, Ischemic Cardiomyopathy On ASA, plavix and statin, coreg resumed at 3.125, pt tolerated the dose ok, (home dose was higher, but I will increase evening dose to 6.25 for now) Lisinopril to be added today, and bp will be monitored. Torsemide to be added tomorrow. Monitor bp closely, monitor I/O closely. Dig level is now gentry, resume dig at lower dose 0.125mg per day. He remains neg fluid balance, has follow up with Dr Arcos soon. continue to hold isosorbide mononitrate for now. can be resumed as outpatient. Abnl LFT : due to c hf, improving Renal failure, : improving creat, cardio renal syndrome. BPH: resume flomax today, see if we can d/c spangler in AM. had some urinary retention issues PNA: likely aspirational PNA, on zosyn for now, will descalate abx if continues to improve., mrsa screen is neg DM glucose is labile but continue to monitor. DNR Weakness: Anticipate d/c to SNF if ok by family likely day after tomorrow. Medical - PN: Qual - VTE Deep Vein Thrombosis/Pulmonary Embolism Present on Admission: No
[2017-02-26] MEDS: SIMVASTATIN 10 MG TABLET PO SCH (20:31)
[2017-02-26] MEDS ORDERED: TAMSULOSIN 0.4 MG CAPSULE PO SCH (21:00)
[2017-02-27 05:27] LABS: Basophils # (Auto) 0.1 K/mcL (0.0-0.3); Basophils % (Auto) 0.8 % (0.0-2.0); Eosinophils # (Auto) 0.4 K/mcL (0.0-0.7); Granulocytes % (Auto) 71.4 % (38.0-78.0); Lymphocytes # (Auto) 1.2 K/mcL (1.5-4.8); Lymphocytes % (Auto) 16.8 % (15.5-49.0); Mean Cell Volume 87.2 fL (80.0-100.0); Mean Corpuscular Hemoglobin 29.7 pg (26.0-34.0); Monocytes # (Auto) 0.4 K/mcL (0.1-0.9); Platelet Count 190 K/mcL (140-440); RBC 3.83 M/mcL (4.50-5.90); Red Cell Distribution Width 18.1 % (11.5-14.5)
[2017-02-27] MEDS: PIPERACILLIN SODIUM/TAZOBACTAM 3.375 GM in DEXTROSE 5% IN WATER 50 ML IV SCH ×2 (05:35→11:50)
[2017-02-27] MEDS: 0.9 % SODIUM CHLORIDE 10 ML SYRINGE IV SCH ×4 (05:35→20:57)
[2017-02-27 05:41] LABS: ALT/SGPT 165 U/l (0-40); Albumin/Globulin Ratio 0.9 (1.0-2.3); Alkaline Phosphatase 75 U/L (39-117); Bilirubin,Direct 0.3 mg/dL (0.0-0.3); Blood Urea Nitrogen 17 mg/dl (8-23); Gamma Glutamyl Transpeptidase 67 U/L (8-61); Magnesium 2.2 mg/dL (1.6-2.5); Uric Acid 3.1 mg/dL (2.5-8.0)
[2017-02-27] MEDS: INSULIN LISPRO 1 UNIT/0.01 ML UNIT SQ SCH ×4 (07:43→20:56)
[2017-02-27] MEDS: POTASSIUM CHLORIDE 20 MEQ TABLET PO SCH (08:13)
[2017-02-27] MEDS: CARVEDILOL 3.125 MG TABLET PO SCH ×2 (08:13→17:17)
[2017-02-27] MEDS: ASPIRIN 81 MG TAB.CHEW PO SCH (08:52)
[2017-02-27] MEDS: sitaGLIPtin 50 MG TABLET PO SCH (08:52)
[2017-02-27] MEDS: VITAMIN D3 5,000 UNIT CAPSULE PO SCH (08:52)
[2017-02-27] MEDS: MAGNESIUM OXIDE 400 MG TABLET PO SCH (08:52)
[2017-02-27] MEDS: LISINOPRIL 5 MG TABLET PO SCH (08:53)
[2017-02-27] MEDS: HEPARIN 5,000 UNIT/ML VIAL SQ SCH ×2 (08:53→20:57)
[2017-02-27] MEDS: CLOPIDOGREL 75 MG TABLET PO SCH (08:53)
[2017-02-27] MEDS ORDERED: TORSEMIDE 10 MG TABLET PO SCH (09:00)
[2017-02-27] MEDS: 0.9 % SODIUM CHLORIDE 250 ML IV SCH ×2 (11:22→15:53)
[2017-02-27] MEDS ORDERED: DOCUSATE SODIUM 100 MG CAPSULE PO PRN (12:03)
[2017-02-27] MEDS ORDERED: ACETAMINOPHEN 325 MG TABLET PO PRN (12:03)
[2017-02-27] MEDS ORDERED: ALBUTEROL SULFATE 2.5 MG/3 ML NEBULIZER NEB PRN (12:03)
[2017-02-27] MEDS ORDERED: ONDANSETRON 4 MG/2 ML VIAL IV PRN (12:03)
[2017-02-27] MEDS ORDERED: NALOXONE HCL 0.4 MG/ML VIAL IV PRN (12:03)
[2017-02-27] MEDS ORDERED: NITROGLYCERIN 0.4 MG TAB.SUBL SL PRN (12:03)
[2017-02-27] MEDS ORDERED: DEXTROSE 50% 50 ML VIAL IV PRN (12:03)
[2017-02-27] MEDS ORDERED: MAGNESIUM HYDROXIDE 30 ML ORAL.SUSP PO PRN (12:03)
[2017-02-27] MEDS: DIGOXIN 125 MCG TABLET PO SCH (13:38)
--- NOTE | 2017-02-27 15:05 | Internal Med Progress Note ---
Medical - PN: Subj Patient information: Note initiated : 02/27/17 at 3:01 pm Service Date, if different from initiated Date: [] Patient: Alcides Lopez 82 y/o M admitted on 02/20/17 for Short of Breath/CHF Exacerbation. Chief Complaint: [] Interval history: February 20, 2017:History of present illness: Mr. Lopez is a 82 year old man who presented to the emergency room this evening complaining of worsening shortness of breath. His reports that he has had progressive dyspnea for at least the last month. He has a known ischemic cardiomyopathy, but apparently last saw his livestock handler, Dr. Beach , last July, who then retired. He has been seeing his primary care physician, and having his medications adjusted, but his says he is just continuing to get worse. She says he is now too weak to stand up. He is short of breath both at rest and particularly with exertion. Emergency room evaluation showed worsening renal function and hypoxia on room air down into the 80s. BNP was markedly elevated, and troponin was mildly positive. The patient is admitted for intensive management of congestive heart failure. He is quite sleepy during the time of my exam, and is rather dyspneic. His answers most questions, although he does occasionally answer a question. He denies recent fever or chills, headaches or dizziness, new eye or ear symptoms, sore throat or cough. He denies chest pain or palpitations, abdominal pain, nausea or vomiting, diarrhea or constipation. He denies dysuria. He was scheduled to establish care with a new livestock handler, Dr. Arcos, on March 02. February 21: The patient had a very difficult night. He had numerous episodes of hypotension as well as worsening hypoxia. He was transitioned from an oxygen mask to BiPAP, and did pretty well with that. He initially tolerated the nitroglycerin drip, and that seemed to help somewhat with his breathing, but eventually he started to have difficulty with hypotension, so that was weaned to off. Initially that helped with his blood pressure, but then blood pressure once again started to decrease. Early this morning he was started on a dobutamine drip, to help support his blood pressure. This morning, systolic blood pressures continue to range from 85 to about 100. Urine output was generally greater than 30 mL/h, but occasionally did dip down. Anion gap looked better this morning, but BUN and creatinine looks slightly worse. LFTs are now quite elevated. Troponin did bump this morning up to 0.08. I did contact (?), Of cardiology, at [facility], this morning. I reviewed the patient's case with him. He suggested that we titrate the dobutamine up by quite a bit, to about 7 mcg/kg/min. He also suggested an IV Lasix drip, varying from 0.1-0.4 mg/kg/h. he said that these 2 continuous drips would give the patient the best chance of diuresis without severe hypotension. These medications were started fairly early this morning. They have been titrated up over the course of the day. The patient is maintaining mean arterial pressures generally above 65. Urine output dropped quite a bit today, so the nurse ultimately bladder scan him , and found that he had over 900 mL of urine in his bladder, and that the Spangler was malfunctioning. That Spangler was pulled, and the new one was attempted, but 3 different nurses tried and could not get a Spangler catheter placed. -Otherwise, the patient says his breathing is much easier today. He has been awake and alert today, and his sons have arrived from out of town. He has periodically taken the BiPAP off, to eat and drink, and has tolerated that fairly well also. February 22: Today, the patient notes he is feeling quite a bit better. He tolerates being off the BiPAP is fine, and is able to eat and drink and talk without much difficulty. He denies fever or chills, headaches or dizziness, chest pain or palpitations. He has not really been out of bed more than once, so is not sure about dyspnea on exertion. He does not currently feel short of breath at rest. He denies abdominal pain, nausea or vomiting, diarrhea or constipation. Yesterday they had a very difficult time with his Spangler, but finally did replace it. He diuresed very large volumes overnight, and his Lasix drip was discontinued. Blood pressures still run rather low, on dobutamine at 13 mics per kilo per minute. February 23: Today, the patient notes he is feeling pretty well. He is sitting up in a chair , without oxygen, when I entered the room. He seems to be in good spirits. He says he really has not tried to walk yet with physical therapy, but otherwise denies headaches or dizziness, fever or chills, sore throat or cough, chest pain or shortness of breath, GI symptoms. Spangler catheter remains in place. -He remains off the Lasix drip, but is still had quite significant urine output. I am now getting concerned that he is a little on the dry side. Systolic blood pressures range from 80-100, with mean arterial pressures generally above 60. We have been weaning the dobutamine drip overnight, but it is still going as of this morning. I have encouraged the nurses to go ahead and wean that to off. -We will continue to hold lisinopril, Coreg, and torsemide, due to relatively low blood pressures. We will try to reinstitute those, once the dobutamine has been weaned and we can see what her blood pressure we are working with. -Potassium was low this morning, so we will give him some fluids with potassium , and hopefully that will help his blood pressure as well. Liver function tests continue to improve as well. Digoxin level remains a bit elevated. February 24: The patient was weaned off of his dobutamine yesterday afternoon. He has done quite well since then. Blood pressures today are ranging from 80-296/59-74, with mean arterial pressures above 70. O2 saturation is now 95-100% on room air. Patient was started back on Coreg this morning, and seems to have tolerated his first dose. He has continued to have brisk urine output, with over 3 L urine output yesterday. He is positive about 475 mL so far today. He was admitted with a weight of 139 pounds, and yesterday had dropped to 130. Today he is back at 131. -Patient continues on Zosyn for apparent pneumonia on chest x-ray. His white blood cell count is normal today. -BUN and creatinine continue to improve. Elevated liver function enzymes are also improving. The patient is sitting up in bed with pillows propped behind him and his feet dangling. He is eating lunch. He says he is feeling fine. He notes decreased dyspnea with exertion. He has stood up a couple of times today to transfer from bed to chair or chair to commode, and has tolerated that relatively well. He otherwise denies fever or chills, chest pain or palpitations, shortness of breath at rest. He has an intermittent cough, which has not brought up much. He denies abdominal pain, nausea or vomiting, diarrhea or constipation. Spangler catheter remains in place. February 25: -The patient remains off of diuretics, and off of dobutamine. He is generally maintaining systolic blood pressures between 82 and 100, and maps of 62-82. He did tolerate the a.m. dose of Coreg yesterday, but blood pressure was too low to receive a dose last night. Torsemide and lisinopril remain on hold, because his blood pressures have been so well. -He continued to diurese well beyond the time that the Lasix drip was turned off. I had concerns that we had over diuresed him. He did receive some IV fluids yesterday with potassium supplements. He did regain a little bit of fluid. It appears that overall he diuresed about 8500 mL, but that has dropped to 7890 at this time. Weight was 139 pounds on arrival, and dropped to a low of 130. Weight is back to 133 pounds today, and this may be a good weight for him. -He is on Zosyn for apparent aspiration pneumonia, but continues to deny cough, fever, shortness of breath. -He says he is feeling quite well today. He did get up today and walk 15 or 20 steps with a walker. He says he did not feel particularly dizzy or weak at that time. He denies dyspnea with exertion, or orthopnea. He denies chest pain or palpitations, fever or chills, abdominal symptoms. -Spangler catheter was removed yesterday, but patient once again had urinary retention, so that was reinserted. He may end up needing either evaluation, or need to go home with a catheter, and have evaluation later. -Renal and liver function test have continued to look better every day.\ February 26 Pt seen examined, no acute overnight events, bp remains stable in 90's and low 100's systolic, pt has no new dizziness. The patient has tolerated his dose of coreg 3.125 bid, which I will keep for now. His family at bedside, plan of care discussed with them more than 3 chr conditions addressed. see a/p for details. In brief pt with cardiogenic shock, chf, s/p lasix drip and dobutamin drip, has borderline bp, and has possible aspirational PNA, in the process of resume his home dosing of meds. February 27: patient seen examined, no acute overnight events, off oxygen, no cp, sob on minimal activity present, but no drop on oxygen levels, BP stable, will resume torsemide today, if reamins stable can be d/c home tomorrow. see a/p for chr condition management. Pertinent ROS: Denies headache, dizziness Denies chest pain, palpitations Denies cough or shortness of breath. SOB on activity present. Denies abdominal pain, nausea or vomiting. - Constitutional Vitals: Vital Signs Temp Pulse Resp BP Pulse Ox 97.9 F 85 20 105/72 99 02/27/17 07:31 02/26/17 06:29 02/27/17 07:31 02/27/17 07:31 02/27/17 07:31 Period Temp Pulse Resp BP Sys/Culp Pulse Ox Last 24 Hr 97.7 F-99.2 F 16-24 94-105/58-72 92-99 Intake and Output 02/27/17 02/27/17 02/27/17 05:59 13:59 21:59 Intake Total 50 / 50 270 / 270 Output Total 550 / 550 1050 / 1050 Balance -500 / -500 -780 / -780 Intake & Output: Intake & Output 02/27/17 02/27/17 02/27/17 05:59 13:59 21:59 Intake Total 50 / 50 270 / 270 Output Total 550 / 550 1050 / 1050 Balance -500 / -500 -780 / -780 Intake: IV 50 / 50 50 / 50 Zosyn 3.375 gm In 50 / 50 50 / 50 Dextrose 5% in Water 50 ml @ 100 mls/hr IV Q6H [facility] Rx#:[id number] Oral 220 / 220 Output: Urine Catheter Amount 550 / 550 1050 / 1050 Other: Meal Breakfast Percent of Meal Consumed 100% # Bowel Movements 1 Exam: Constitutional; Afebrile, cooperative, alert, not in distress. Eyes- No icterus, , No periorbital swelling Ears- Ext ear normal, hearing normal to conversation. Neck- Midline trachea, supple Respiratory system: Air Entry equal on both sides, No crackles or wheezing, no rhonchi. CVS- Rate rhythm regular, S1,S2 heard, no gallop, no rub. Abdomen- Soft nontender abdomen, no organomegaly, no tenderness, no guarding or rigidity, TIMBER HEWER- AOOx3, moving all extremities, no gross focal deficit noted. Medical - PN: Obj Da - Labs CBC & Chem 7: 02/27/17 04:18 02/27/17 04:18 Labs: Abnormal Lab Results 02/27/17 02/27/17 02/26/17 04:18 04:18 03:58 RBC 3.83 L 3.91 L Hgb 11.4 L 11.5 L Hct 33.4 L 34.7 L RDW 18.1 H 18.0 H Lymph % (Auto) 14.6 L Lymph # (Auto) 1.2 L 1.4 L BUN Creatinine 1.3 H Glucose 116 H Phosphorus 2.4 L GGT 67 H AST 55 H ALT 165 H Albumin 3.0 L Albumin/Globulin Ratio 0.9 L Digoxin 02/26/17 02/25/17 02/25/17 03:58 04:05 04:05 RBC Hgb Hct RDW Lymph % (Auto) Lymph # (Auto) BUN 25 H Creatinine Glucose Phosphorus 2.1 L GGT AST 95 H 139 H ALT 229 H 284 H Albumin 3.0 L 3.0 L Albumin/Globulin Ratio 0.9 L Digoxin 0.9 H 02/25/17 04:05 RBC 3.99 L Hgb 11.7 L Hct 35.2 L RDW 17.2 H Lymph % (Auto) 13.1 L Lymph # (Auto) 1.1 L BUN Creatinine Glucose Phosphorus GGT AST ALT Albumin Albumin/Globulin Ratio Digoxin Meds: Medications Acetaminophen (Tylenol) 650 mg PO Q6HP PRN PRN Reason: PAIN/FEVER > 101 Albuterol Sulfate (Ventolin) 2.5 mg NEB Q4HRT PRN PRN Reason: Shortness Of Breath Or Wheezing Aspirin (Aspirin) 81 mg PO DAILY [facility] Carvedilol (Coreg) 3.125 mg PO BIDCC [facility] Clopidogrel Bisulfate (Plavix) 75 mg PO DAILY [facility] Dextrose (Dextrose 50%) 0 ml IV UD PRN PRN Reason: Hypoglycemia Diagnostic Test (Pha) (Accu-Chek) 1 each FS ACHS [facility] Digoxin (Lanoxin) 125 mcg PO DAILY@1400 [facility] Last Admin: 02/27/17 13:38 Dose: 125 mcg Docusate Sodium (Colace) 100 mg PO BID PRN PRN Reason: Constipation Heparin Sodium (Porcine) (Heparin) 5,000 unit SQ Q12 [facility] Sodium Chloride (Sodium Chloride 0.9%) 250 mls @ 20 mls/hr IV .[id number] [facility] Piperacillin Sod/Tazobactam (Sod 2.25 gm/ Dextrose) 50 mls @ 100 mls/hr IV Q6H [facility] Insulin Human Lispro (Humalog) 0 unit SQ ACHS [facility] PRN Reason: Protocol Lisinopril (Zestril) 2.5 mg PO DAILY [facility] Magnesium Hydroxide (Milk Of Magnesia) 30 ml PO DAILYP PRN PRN Reason: Constipation Magnesium Oxide (Magnesium Oxide) 400 mg PO DAILY [facility] Morphine Sulfate (Morphine) 2 mg IV Q5MIN PRN PRN Reason: Shortness Of Breath Naloxone HCl (Narcan) 0.1 mg IV Q2MIN PRN PRN Reason: Opiate Reversal Nitroglycerin (Nitrostat) 0.4 mg SL Q5M PRN PRN Reason: Chest Pain Ondansetron HCl (Zofran) 4 mg IV Q4HP PRN PRN Reason: Nausea And Vomiting Potassium Chloride (Kdur) 20 meq PO QAC [facility] Simvastatin (Zocor) 10 mg PO HS [facility] Sitagliptin Phosphate (Januvia) 50 mg PO DAILY [facility] Sodium Chloride (Saline Flush) 10 ml IV Q8 [facility] Last Admin: 02/27/17 13:38 Dose: 10 ml Tamsulosin HCl (Flomax) 0.4 mg PO HS [facility] Torsemide (Demadex) 20 mg PO DAILY [facility] Vitamin D (Vitamin D3) 5,000 unit PO QDAY [facility] Medical - PN: A/P - Time Spent With Patient Total time spent is greater than 50% in coordination of care (as documented) at patient's floor/unit and/or counseling patient: - Narrative A/P Narrative: A/P Cardiogenic Shock: due to severe chf, S/P lasix drip, s/p dobutamine drip, BP now stable, pt saturating well off oxygen, doing well. CAD, Ischemic Cardiomyopathy On ASA, plavix and statin, coreg resumed at 3.125, pt tolerated the dose ok, (home dose was higher, but I will hold off on increaseing evening dose to 6.25 for now) Lisinopril added and bp remained stable. Torsemide added today, and bp will be monitored along with urine output, may cut back on dose of torsemide if needed. monitor I/O closely. Dig level is now normal, resumed dig at lower dose 0.125mg per day. He remains neg fluid balance, has follow up with Dr Arcos soon. continue to hold isosorbide mononitrate for now. can be resumed as outpatient. Abnl LFT : due to c hf, improving Renal failure, : improving creat, cardio renal syndrome. Creat up by 0.1 , likely from addition of lisinopril. BPH: resumed flomax today, see if we can d/c spangler in AM. had some urinary retention issues plan to d/c spangler today and see if he can void by self. PNA: likely aspirational PNA, on zosyn d5 today , switch to augmentin at d/c DM glucose is labile but continue to monitor. DNR Weakness: Anticipate d/c to SNF if ok by family likely day after tomorrow. Medical - PN: Qual - VTE Deep Vein Thrombosis/Pulmonary Embolism Present on Admission: No
[2017-02-27] MEDS: PIPERACILLIN SODIUM/TAZOBACTAM 2.25 GM in DEXTROSE 5% IN WATER 50 ML IV SCH (17:56)
[2017-02-27] MEDS: TAMSULOSIN 0.4 MG CAPSULE PO SCH (20:56)
[2017-02-27] MEDS: SIMVASTATIN 10 MG TABLET PO SCH (20:56)
[2017-02-28] MEDS: PIPERACILLIN SODIUM/TAZOBACTAM 2.25 GM in DEXTROSE 5% IN WATER 50 ML IV SCH ×4 (00:48→17:15)
[2017-02-28] MEDS: 0.9 % SODIUM CHLORIDE 250 ML IV SCH ×3 (00:50→16:25)
[2017-02-28] MEDS: 0.9 % SODIUM CHLORIDE 10 ML SYRINGE IV SCH ×3 (05:49→21:12)
[2017-02-28 05:59] LABS: Basophils # (Auto) 0.1 K/mcL (0.0-0.3); Basophils % (Auto) 0.6 % (0.0-2.0); Eosinophils # (Auto) 0.4 K/mcL (0.0-0.7); Eosinophils % (Auto) 4.5 % (0.0-7.0); Granulocytes % (Auto) 76.1 % (38.0-78.0); Lymphocytes # (Auto) 1.1 K/mcL (1.5-4.8); Lymphocytes % (Auto) 12.6 % (15.5-49.0); Mean Cell Volume 88.4 fL (80.0-100.0); Mean Corpuscular HGB Conc 33.3 g/dL (31.0-36.0); Mean Corpuscular Hemoglobin 29.5 pg (26.0-34.0); Monocytes # (Auto) 0.6 K/mcL (0.1-0.9); Monocytes % (Auto) 6.2 % (1.0-12.0); Platelet Count 218 K/mcL (140-440); RBC 4.12 M/mcL (4.50-5.90); Red Cell Distribution Width 18.1 % (11.5-14.5)
[2017-02-28 06:32] LABS: ALT/SGPT 134 U/l (0-40); Albumin 3.2 gm/dL (3.2-5.2); Albumin/Globulin Ratio 0.9 (1.0-2.3); Alkaline Phosphatase 83 U/L (39-117); Bilirubin,Direct 0.3 mg/dL (0.0-0.3); Blood Urea Nitrogen 21 mg/dl (8-23); Gamma Glutamyl Transpeptidase 77 U/L (8-61); Magnesium 1.9 mg/dL (1.6-2.5); Uric Acid 3.9 mg/dL (2.5-8.0)
[2017-02-28] MEDS: sitaGLIPtin 50 MG TABLET PO SCH (08:45)
[2017-02-28] MEDS: CARVEDILOL 3.125 MG TABLET PO SCH ×2 (08:45→17:21)
[2017-02-28] MEDS: ASPIRIN 81 MG TAB.CHEW PO SCH (08:45)
[2017-02-28] MEDS: MAGNESIUM OXIDE 400 MG TABLET PO SCH (08:45)
[2017-02-28] MEDS: POTASSIUM CHLORIDE 20 MEQ TABLET PO SCH (08:45)
[2017-02-28] MEDS: CLOPIDOGREL 75 MG TABLET PO SCH (08:45)
[2017-02-28] MEDS: HEPARIN 5,000 UNIT/ML VIAL SQ SCH ×2 (08:46→21:11)
[2017-02-28] MEDS: INSULIN LISPRO 1 UNIT/0.01 ML UNIT SQ SCH ×4 (08:46→21:11)
[2017-02-28] MEDS ORDERED: TORSEMIDE 10 MG TABLET PO SCH (09:00)
[2017-02-28] MEDS ORDERED: LISINOPRIL 5 MG TABLET PO SCH (09:00)
[2017-02-28] MEDS: VITAMIN D3 5,000 UNIT CAPSULE PO SCH (09:40)
--- NOTE | 2017-02-28 11:29 | Internal Med Progress Note ---
Medical - PN: Subj Patient information: Note initiated : 02/28/17 at 11:22 am Service Date, if different from initiated Date: [] Patient: Alcides Lopez 82 y/o M admitted on 02/20/17 for Short of Breath/CHF Exacerbation. Chief Complaint: [] Interval history: February 20, 2017:History of present illness: Mr. Lopez is a 82 year old man who presented to the emergency room this evening complaining of worsening shortness of breath. His reports that he has had progressive dyspnea for at least the last month. He has a known ischemic cardiomyopathy, but apparently last saw his dredge pipeman, Dr. Beach , last July, who then retired. He has been seeing his primary care physician, and having his medications adjusted, but his says he is just continuing to get worse. She says he is now too weak to stand up. He is short of breath both at rest and particularly with exertion. Emergency room evaluation showed worsening renal function and hypoxia on room air down into the 80s. BNP was markedly elevated, and troponin was mildly positive. The patient is admitted for intensive management of congestive heart failure. He is quite sleepy during the time of my exam, and is rather dyspneic. His answers most questions, although he does occasionally answer a question. He denies recent fever or chills, headaches or dizziness, new eye or ear symptoms, sore throat or cough. He denies chest pain or palpitations, abdominal pain, nausea or vomiting, diarrhea or constipation. He denies dysuria. He was scheduled to establish care with a new dredge pipeman, Dr. Arcos, on March 02. February 21: The patient had a very difficult night. He had numerous episodes of hypotension as well as worsening hypoxia. He was transitioned from an oxygen mask to BiPAP, and did pretty well with that. He initially tolerated the nitroglycerin drip, and that seemed to help somewhat with his breathing, but eventually he started to have difficulty with hypotension, so that was weaned to off. Initially that helped with his blood pressure, but then blood pressure once again started to decrease. Early this morning he was started on a dobutamine drip, to help support his blood pressure. This morning, systolic blood pressures continue to range from 85 to about 100. Urine output was generally greater than 30 mL/h, but occasionally did dip down. Anion gap looked better this morning, but BUN and creatinine looks slightly worse. LFTs are now quite elevated. Troponin did bump this morning up to 0.08. I did contact (?), Of cardiology, at [facility], this morning. I reviewed the patient's case with him. He suggested that we titrate the dobutamine up by quite a bit, to about 7 mcg/kg/min. He also suggested an IV Lasix drip, varying from 0.1-0.4 mg/kg/h. he said that these 2 continuous drips would give the patient the best chance of diuresis without severe hypotension. These medications were started fairly early this morning. They have been titrated up over the course of the day. The patient is maintaining mean arterial pressures generally above 65. Urine output dropped quite a bit today, so the nurse ultimately bladder scan him , and found that he had over 900 mL of urine in his bladder, and that the Spangler was malfunctioning. That Spangler was pulled, and the new one was attempted, but 3 different nurses tried and could not get a Spangler catheter placed. -Otherwise, the patient says his breathing is much easier today. He has been awake and alert today, and his sons have arrived from out of town. He has periodically taken the BiPAP off, to eat and drink, and has tolerated that fairly well also. February 22: Today, the patient notes he is feeling quite a bit better. He tolerates being off the BiPAP is fine, and is able to eat and drink and talk without much difficulty. He denies fever or chills, headaches or dizziness, chest pain or palpitations. He has not really been out of bed more than once, so is not sure about dyspnea on exertion. He does not currently feel short of breath at rest. He denies abdominal pain, nausea or vomiting, diarrhea or constipation. Yesterday they had a very difficult time with his Spangler, but finally did replace it. He diuresed very large volumes overnight, and his Lasix drip was discontinued. Blood pressures still run rather low, on dobutamine at 13 mics per kilo per minute. February 23: Today, the patient notes he is feeling pretty well. He is sitting up in a chair , without oxygen, when I entered the room. He seems to be in good spirits. He says he really has not tried to walk yet with physical therapy, but otherwise denies headaches or dizziness, fever or chills, sore throat or cough, chest pain or shortness of breath, GI symptoms. Spangler catheter remains in place. -He remains off the Lasix drip, but is still had quite significant urine output. I am now getting concerned that he is a little on the dry side. Systolic blood pressures range from 80-100, with mean arterial pressures generally above 60. We have been weaning the dobutamine drip overnight, but it is still going as of this morning. I have encouraged the nurses to go ahead and wean that to off. -We will continue to hold lisinopril, Coreg, and torsemide, due to relatively low blood pressures. We will try to reinstitute those, once the dobutamine has been weaned and we can see what her blood pressure we are working with. -Potassium was low this morning, so we will give him some fluids with potassium , and hopefully that will help his blood pressure as well. Liver function tests continue to improve as well. Digoxin level remains a bit elevated. February 24: The patient was weaned off of his dobutamine yesterday afternoon. He has done quite well since then. Blood pressures today are ranging from 80-296/59-74, with mean arterial pressures above 70. O2 saturation is now 95-100% on room air. Patient was started back on Coreg this morning, and seems to have tolerated his first dose. He has continued to have brisk urine output, with over 3 L urine output yesterday. He is positive about 475 mL so far today. He was admitted with a weight of 139 pounds, and yesterday had dropped to 130. Today he is back at 131. -Patient continues on Zosyn for apparent pneumonia on chest x-ray. His white blood cell count is normal today. -BUN and creatinine continue to improve. Elevated liver function enzymes are also improving. The patient is sitting up in bed with pillows propped behind him and his feet dangling. He is eating lunch. He says he is feeling fine. He notes decreased dyspnea with exertion. He has stood up a couple of times today to transfer from bed to chair or chair to commode, and has tolerated that relatively well. He otherwise denies fever or chills, chest pain or palpitations, shortness of breath at rest. He has an intermittent cough, which has not brought up much. He denies abdominal pain, nausea or vomiting, diarrhea or constipation. Spangler catheter remains in place. February 25: -The patient remains off of diuretics, and off of dobutamine. He is generally maintaining systolic blood pressures between 82 and 100, and maps of 62-82. He did tolerate the a.m. dose of Coreg yesterday, but blood pressure was too low to receive a dose last night. Torsemide and lisinopril remain on hold, because his blood pressures have been so well. -He continued to diurese well beyond the time that the Lasix drip was turned off. I had concerns that we had over diuresed him. He did receive some IV fluids yesterday with potassium supplements. He did regain a little bit of fluid. It appears that overall he diuresed about 8500 mL, but that has dropped to 7890 at this time. Weight was 139 pounds on arrival, and dropped to a low of 130. Weight is back to 133 pounds today, and this may be a good weight for him. -He is on Zosyn for apparent aspiration pneumonia, but continues to deny cough, fever, shortness of breath. -He says he is feeling quite well today. He did get up today and walk 15 or 20 steps with a walker. He says he did not feel particularly dizzy or weak at that time. He denies dyspnea with exertion, or orthopnea. He denies chest pain or palpitations, fever or chills, abdominal symptoms. -Spangler catheter was removed yesterday, but patient once again had urinary retention, so that was reinserted. He may end up needing either evaluation, or need to go home with a catheter, and have evaluation later. -Renal and liver function test have continued to look better every day.\ February 26 Pt seen examined, no acute overnight events, bp remains stable in 90's and low 100's systolic, pt has no new dizziness. The patient has tolerated his dose of coreg 3.125 bid, which I will keep for now. His family at bedside, plan of care discussed with them more than 3 chr conditions addressed. see a/p for details. In brief pt with cardiogenic shock, chf, s/p lasix drip and dobutamin drip, has borderline bp, and has possible aspirational PNA, in the process of resume his home dosing of meds. February 27: patient seen examined, no acute overnight events, off oxygen, no cp, sob on minimal activity present, but no drop on oxygen levels, BP stable, will resume torsemide today, if reamins stable can be d/c home tomorrow. see a/p for chr condition management. February 28: Patient seen examined, unable to pass urine overnight, had to place spangler back in, will need 2 weeks of flomax and void trial later. HIs renal function also bumped up to 1.4, will hold torsemide and lisinopril today and reassess, otherwise pt has no acute complaints or concerns to report. Pertinent ROS: Denies headache, dizziness Denies chest pain, palpitations Denies cough or shortness of breath (sob on exertion present) Denies abdominal pain, nausea or vomiting. - Constitutional Vitals: Vital Signs Temp Pulse Resp BP Pulse Ox 97.8 F 87 20 99/67 99 02/28/17 10:59 02/28/17 03:31 02/28/17 10:59 02/28/17 10:59 02/28/17 10:59 Period Temp Pulse Resp BP Sys/Culp Pulse Ox Last 24 Hr 96.5 F-98.0 F 86-92 20-22 99-116/61-79 96-100 Intake and Output 02/27/17 02/28/17 02/28/17 21:59 05:59 13:59 Intake Total 770 / 770 300 / 300 Output Total 1500 / 1500 1800 / 1800 Balance -730 / -730 -1500 / -1500 Weight 133 lb 6.4 oz Intake & Output: Intake & Output 02/27/17 02/28/17 02/28/17 21:59 05:59 13:59 Intake Total 770 / 770 300 / 300 Output Total 1500 / 1500 1800 / 1800 Balance -730 / -730 -1500 / -1500 Weight 133 lb 6.4 oz Intake: IV 50 / 50 50 / 50 Zosyn 2.25 gm In Dextrose 50 / 50 50 / 50 5% in Water 50 ml @ 100 mls/hr IV Q6H [facility] Rx#: [id number] Oral 720 / 720 250 / 250 Output: Urine Catheter Amount 900 / 900 900 / 900 Void Amount 600 / 600 900 / 900 Straight 825 / 825 Other: Meal Dinner Percent of Meal Consumed 100% Feeding Ability Independent # Voids 4 # Bowel Movements 1 Exam: Constitutional; Afebrile, cooperative, alert, not in distress. thin, Eyes- No icterus, , No periorbital swelling Ears- Ext ear normal, hearing normal to conversation. Neck- Midline trachea, supple Respiratory system: Air Entry equal on both sides, No crackles or wheezing, no rhonchi. CVS- Rate rhythm regular, S1,S2 heard, no gallop, no rub. Abdomen- Soft nontender abdomen, no organomegaly, no tenderness, no guarding or rigidity, FORMS DESIGNER- AOOx3, moving all extremities, no gross focal deficit noted. Medical - PN: Obj Da - Labs CBC & Chem 7: 02/28/17 04:45 02/28/17 04:45 Labs: Abnormal Lab Results 02/28/17 02/28/17 02/27/17 04:45 04:45 04:18 RBC 4.12 L 3.83 L Hgb 12.1 L 11.4 L Hct 36.4 L 33.4 L RDW 18.1 H 18.1 H Lymph % (Auto) 12.6 L Lymph # (Auto) 1.1 L 1.2 L Creatinine 1.4 H Glucose 131 H Phosphorus 2.4 L GGT 77 H AST ALT 134 H Albumin Albumin/Globulin Ratio 0.9 L 02/27/17 02/26/17 02/26/17 04:18 03:58 03:58 RBC 3.91 L Hgb 11.5 L Hct 34.7 L RDW 18.0 H Lymph % (Auto) 14.6 L Lymph # (Auto) 1.4 L Creatinine 1.3 H Glucose 116 H Phosphorus 2.4 L 2.1 L GGT 67 H AST 55 H 95 H ALT 165 H 229 H Albumin 3.0 L 3.0 L Albumin/Globulin Ratio 0.9 L 0.9 L Meds: Medications Acetaminophen (Tylenol) 650 mg PO Q6HP PRN PRN Reason: PAIN/FEVER > 101 Albuterol Sulfate (Ventolin) 2.5 mg NEB Q4HRT PRN PRN Reason: Shortness Of Breath Or Wheezing Aspirin (Aspirin) 81 mg PO DAILY KARLA Last Admin: 07/05/17 08:45 Dose: 81 mg Carvedilol (Coreg) 3.125 mg PO BIDCC [facility] Last Admin: 02/28/17 08:45 Dose: 3.125 mg Clopidogrel Bisulfate (Plavix) 75 mg PO DAILY [facility] Last Admin: 02/28/17 08:45 Dose: 75 mg Dextrose (Dextrose 50%) 0 ml IV UD PRN PRN Reason: Hypoglycemia Diagnostic Test (Pha) (Accu-Chek) 1 each FS ACHS [facility] Last Admin: 02/28/17 08:46 Dose: 1 each Digoxin (Lanoxin) 125 mcg PO DAILY@1400 [facility] Last Admin: 02/27/17 13:38 Dose: 125 mcg Docusate Sodium (Colace) 100 mg PO BID PRN PRN Reason: Constipation Heparin Sodium (Porcine) (Heparin) 5,000 unit SQ Q12 [facility] Last Admin: 02/28/17 08:46 Dose: 5,000 unit Sodium Chloride (Sodium Chloride 0.9%) 250 mls @ 20 mls/hr IV .[id number] [facility] Last Admin: 02/28/17 00:50 Dose: 20 mls/hr Piperacillin Sod/Tazobactam (Sod 2.25 gm/ Dextrose) 50 mls @ 100 mls/hr IV Q6H [facility] Last Admin: 02/28/17 05:49 Dose: 100 mls/hr Insulin Human Lispro (Humalog) 0 unit SQ [facility] PRN Reason: Protocol Last Admin: 02/28/17 08:46 Dose: Not Given Magnesium Hydroxide (Milk Of Magnesia) 30 ml PO DAILYP PRN PRN Reason: Constipation Magnesium Oxide (Magnesium Oxide) 400 mg PO DAILY [facility] Last Admin: 02/28/17 08:45 Dose: 400 mg Morphine Sulfate (Morphine) 2 mg IV Q5MIN PRN PRN Reason: Shortness Of Breath Naloxone HCl (Narcan) 0.1 mg IV Q2MIN PRN PRN Reason: Opiate Reversal Nitroglycerin (Nitrostat) 0.4 mg SL Q5M PRN PRN Reason: Chest Pain Ondansetron HCl (Zofran) 4 mg IV Q4HP PRN PRN Reason: Nausea And Vomiting Potassium Chloride (Kdur) 20 meq PO QAMCC [facility] Last Admin: 02/28/17 08:45 Dose: 20 meq Simvastatin (Zocor) 10 mg PO [facility] Last Admin: 02/27/17 20:56 Dose: 10 mg Sitagliptin Phosphate (Januvia) 50 mg PO DAILY [facility] Last Admin: 02/28/17 08:45 Dose: 50 mg Sodium Chloride (Saline Flush) 10 ml IV Q8 [facility] Last Admin: 02/28/17 05:49 Dose: Not Given Tamsulosin HCl (Flomax) 0.4 mg PO HS [facility] Last Admin: 02/27/17 20:56 Dose: 0.4 mg Vitamin D (Vitamin D3) 5,000 unit PO QDAY [facility] Last Admin: 02/28/17 09:40 Dose: 5,000 unit Medical - PN: A/P - Time Spent With Patient Total time spent is greater than 50% in coordination of care (as documented) at patient's floor/unit and/or counseling patient: - Narrative A/P Narrative: A/P Cardiogenic Shock: due to severe chf, S/P lasix drip, s/p dobutamine drip, BP now stable, pt saturating well off oxygen, doing well. CAD, Ischemic Cardiomyopathy On ASA, plavix and statin, coreg resumed at 3.125, pt tolerated the dose ok, (home dose was higher, but I will hold off on increaseing evening dose to 6.25 for now) Lisinopril added and bp remained stable, buit will be stopped due to rising creat. Torsemide added and bp remained stable, unfortunatley the renal function worsened hence held. Dig level is now normal, resumed dig at lower dose 0.125mg per day. He remains neg fluid balance, has follow up with Dr Arcos soon. continue to hold isosorbide mononitrate for now. can be resumed as outpatient. Abnl LFT : due to c hf, improving Renal failure, :creat as back to baseline, but now trending back up again, will hold lisinopril and torsemide today and reassess in AM. BPH: resumed flomax today, unable to void by self yet, will keep spangler x 2 weeks and he will need void trial after 2 weeks, will refer to urology at d/c for same. PNA: likely aspirational PNA, on zosyn d6 today , given he is staying another day, he will complete his course of ABX while inpatient. DM glucose is labile but continue to monitor. DNR Weakness: Anticipate d/c to SNF if renal function remains stable and no new concerns. Medical - PN: Qual - VTE Deep Vein Thrombosis/Pulmonary Embolism Present on Admission: No
[2017-02-28] MEDS: DIGOXIN 125 MCG TABLET PO SCH (13:21)
[2017-02-28] MEDS: SIMVASTATIN 10 MG TABLET PO SCH (21:11)
[2017-02-28] MEDS: TAMSULOSIN 0.4 MG CAPSULE PO SCH (21:11)
[2017-03-01] MEDS: PIPERACILLIN SODIUM/TAZOBACTAM 2.25 GM in DEXTROSE 5% IN WATER 50 ML IV SCH ×3 (00:09→11:16)
[2017-03-01] MEDS: 0.9 % SODIUM CHLORIDE 250 ML IV SCH (01:35)
[2017-03-01] MEDS: 0.9 % SODIUM CHLORIDE 10 ML SYRINGE IV SCH (05:36)
[2017-03-01] MEDS: INSULIN LISPRO 1 UNIT/0.01 ML UNIT SQ SCH ×2 (07:40→11:14)
[2017-03-01 07:48] LABS: Basophils # (Auto) 0.1 K/mcL (0.0-0.3); Basophils % (Auto) 0.9 % (0.0-2.0); Eosinophils # (Auto) 0.4 K/mcL (0.0-0.7); Eosinophils % (Auto) 4.5 % (0.0-7.0); Granulocytes % (Auto) 71.4 % (38.0-78.0); Lymphocytes # (Auto) 1.4 K/mcL (1.5-4.8); Lymphocytes % (Auto) 16.2 % (15.5-49.0); Mean Cell Volume 88.5 fL (80.0-100.0); Mean Corpuscular HGB Conc 33.1 g/dL (31.0-36.0); Mean Corpuscular Hemoglobin 29.3 pg (26.0-34.0); Monocytes # (Auto) 0.6 K/mcL (0.1-0.9); Platelet Count 222 K/mcL (140-440); RBC 4.14 M/mcL (4.50-5.90); Red Cell Distribution Width 18.2 % (11.5-14.5)
[2017-03-01] MEDS: POTASSIUM CHLORIDE 20 MEQ TABLET PO SCH (08:11)
[2017-03-01 09:12] LABS: Blood Urea Nitrogen 15 mg/dl (8-23)
[2017-03-01] MEDS: ASPIRIN 81 MG TAB.CHEW PO SCH (09:51)
[2017-03-01] MEDS: MAGNESIUM OXIDE 400 MG TABLET PO SCH (09:51)
[2017-03-01] MEDS: sitaGLIPtin 50 MG TABLET PO SCH (09:52)
[2017-03-01] MEDS: HEPARIN 5,000 UNIT/ML VIAL SQ SCH (09:52)
[2017-03-01] MEDS: CLOPIDOGREL 75 MG TABLET PO SCH (09:52)
--- NOTE | 2017-03-01 10:28 | Discharge Summary ---
Medical - DS: Prov Patient information: Note initiated : 03/01/17 at 10:25 am Service Date, if different from initiated Date: [] Patient: Alcides Lopez 82 y/o M admitted on 02/20/17 for Short of Breath/CHF Exacerbation. Chief Complaint: [] Date of admission: 02/20/17 23:12 Discharge date: 03/01/17 Primary care physician: Brian Francisco Admitting clinician: Luz Bustamante Discharging clinician: Meri Martinez Medical - DS: Meds - Discharge Medications Prescriptions: Torsemide [Demadex] 10 mg PO DAILY #30 tablet Active and Home Medications: Home Medications cholecalciferol (vitamin D3) 5,000 unit capsule 5,000 unit PO QDAY cap [History Confirmed 02/24/17 Last Taken Unknown] lancets See Dose Instructions .ROUTE .MEDSUPPLY 02/13/15 [History Confirmed Last Taken Unknown] nitroglycerin 0.4 mg sublingual tablet 0.4 mg SUBLINGUAL Q5MIN PRN tab [History Confirmed 02/24/17 Last Taken Unknown] sitagliptin 100 mg tablet 100 mg PO QDAY #30 tab 02/09/16 [Rx Confirmed Last Taken Unknown] pravastatin 40 mg tablet 20 mg PO QHS #15 tab 02/21/16 [Rx Confirmed 02/24/17 Last Taken Unknown] blood sugar diagnostic strips See Dose Instructions .ROUTE .MEDSUPPLY #100 each 03/07/16 [Rx Confirmed 01/11/17 Last Taken Unknown] digoxin 250 mcg tablet 250 mcg PO DAILY tab 01/11/17 [History Confirmed Last Taken Unknown] isosorbide mononitrate ER 30 mg tablet,extended release 24 hr 30 mg PO QAM #30 tab 01/11/17 [Rx Confirmed 02/24/17 Last Taken Unknown] Lisinopril [Zestril] 2.5 mg PO DAILY #60 tablet 01/17/17 [Rx Confirmed 02/24/17 Last Taken Unknown] torsemide 20 mg tablet 20 mg PO QDAY #30 tab 02/16/17 [Rx Confirmed 02/20/17 Last Taken Unknown] Aspirin [Jeanine Chewable Aspirin] 81 mg PO DAILY 02/24/17 [History Confirmed 09/12 Last Taken Unknown] Carvedilol [Coreg] 3.125 mg PO QAM 02/24/17 [History Confirmed 02/24/17 Last Taken Unknown] Carvedilol [Coreg] 6.25 mg PO QPM 02/24/17 [History Confirmed 02/24/17 Last Taken Unknown] Potassium Chloride [Klor-Con 10] 20 meq PO DAILY 02/24/17 [History Confirmed 09/12 Last Taken Unknown] Tamsulosin [Flomax] 0.4 mg PO HS 02/24/17 [History Confirmed 02/24/17 Last Taken Unknown] Medical - DS: Hosp Hospital course: Mr. Lopez is a 82 year old Male with h/o severe systolic heart failure, presented to the ER with complaints of shortness of breath over 1 month. He was noted to be hypotensive and hypoxic on presentation, and was admitted to the hospital with acute congestive heart failure. Cardiogenic shock : The patient bp was ok and he was treated with NTG drip and BIPAP, but after hypotension developed he was switched to Dopamine drip. Dr Aldridge from [facility] was consutlted by phone who advised continuing the dopamine drip and adding lasix drip to help with diuresis. The patient responded to this treatment well and eventually was weaned off both the drips. He was total of 12L negative at the time of discharge. CHF : Patient has h/o ischemic cardiomyopathy, has Pacemaker? AICD in place, was jesusita to see Dr Arcos at [facility] before being admitted here, the patient was on coreg 3.125 AM and 6.25 PM, isosorbide 30, lisinopril 2.5, torsemide 20 at home as his home meds. The patient bp was on the lower end while in the hospital with Systolic around 90. We gradually resumed his coreg which he was able to tolerate well (coreg dose changed to 3.125 bid) , adding the torsemide and lisinopril did cause worsening of his renal function. Isosorbide was not added back and is being held at discharge for now. He remains on digoxin at discharge. AT the time of discharge we are cutting back on the dose of torsemide to 10mg qd , and the patient will continue lisinopril 2.5mg daily He will need close follow up with his Assignment Desk Assistant to optimize his medication regime. He will also need follow up Basic panel to evaluate his renal function. He will also need his dig level to be checked and dose optimized, as his dig level was high on presentation and he was on digoxin 0.25mg per day, this dose was cut to 0.125mg per day at discharge with levels in the therapeutic range 0.7ng. BPH/ Urinary Retention: The patient has h/o BPH and while in the hospital developed urinary retention, his med flomax was held due to low bp, on resumption we gave him a voiding trial which was unsuccessful. He will need another voiding trial in 2 weeks. He will continue flowmax for now, we will refer to urology at discharge . Renal Failure: Creat was 1.5 on presentatin, improved to 1.0 after treatment of chf, however started to trend back up again after initation of home meds. 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 PNA: Suspect aspiration pna was noted on CXR which was treated with zosy, pt completed the course of antibiotic while in the hospital. At the time of discharge patient is significantly weaker from his hospital stay and will be discharged to snf for rehab. he needs to follow up with his pcp, cardiology and urology. No changes in home meds done except as mentioned above. Discharge diagnosis: CHF exacerbation, PNA> - Time Spent with Patient Total time spent providing and/or coordinating discharge services: Greater than 30 minutes Medical - DS: Exam - Constitutional Vitals: Vital Signs Temp Pulse Pulse Resp BP Pulse Ox 03/01/17 08:00 83 16 98 03/01/17 07:39 98 03/01/17 06:52 97.7 F 82 15 97/62 98 03/01/17 04:00 98.0 F 85 16 106/64 98 03/01/17 00:00 97.0 F 87 16 100/62 96 02/28/17 19:54 97.5 F 87 16 107/71 99 02/28/17 19:29 98 02/28/17 16:00 97.2 F 20 101/68 98 02/28/17 10:59 97.8 F 20 99/67 99 Intake and Output 02/28/17 03/01/17 03/01/17 21:59 05:59 13:59 Intake Total 350 / 350 850 / 850 360 / 360 Output Total 350 / 350 900 / 900 Balance 0 / 0 -50 / -50 360 / 360 Intake: IV 350 / 350 50 / 50 Sodium Chloride 0.9% 250 250 / 250 ml @ 20 mls/hr IV . [id number] [facility] Rx#:[id number] Zosyn 2.25 gm In Dextrose 100 / 100 50 / 50 5% in Water 50 ml @ 100 mls/hr IV Q6H JESUSITA Rx#: [id number] Oral 800 / 800 360 / 360 Output: Urine Catheter Amount 350 / 350 900 / 900 Other: Meal Breakfast Percent of Meal Consumed 100% Feeding Ability Independent Weight 132 lb 6.4 oz Additional comments: Constitutional; Afebrile, cooperative, alert, not in distress. Eyes- No icterus, , No periorbital swelling Ears- Ext ear normal, hearing normal to conversation. Neck- Midline trachea, supple Respiratory system: Air Entry equal on both sides, No crackles or wheezing, no rhonchi. CVS- Rate rhythm regular, S1,S2 heard, no gallop, no rub. 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 Medical - DS: Data Procedures and tests throughout hospitalization: Chest x ray IMPRESSION: Moderate CHF Interpreted and Authenticated by: Yahir Bauer 02/21/17 Labs on day of discharge: Labs from last 24 hours 03/01/17 03/01/17 08:09 05:21 WBC 8.9 RBC 4.14 L Hgb 12.1 L Hct 36.7 L MCV 88.5 MCH 29.3 MCHC 33.1 RDW 18.2 H Plt Count 222 MPV 9.5 Gran % 71.4 Lymph % (Auto) 16.2 [place] % (Auto) 7.0 Eos % (Auto) 4.5 Baso % (Auto) 0.9 Gran # 6.4 Lymph # (Auto) 1.4 L [place] # (Auto) 0.6 Eos # (Auto) 0.4 Baso # (Auto) 0.1 Sodium 136 Potassium 4.3 Chloride 98 Carbon Dioxide 27 Anion Gap 11.0 BUN 15 Creatinine 1.3 H GFR Calculation 51 Glucose 124 H Calcium 9.3 Medical - DS: A/P - Patient/Caregiver Discharge Instructions Activity: as per physical therapy, increase activity as tolerated Diet: Low Sodium (2gm), Cardiac Additional Instructions: Fluid restriction to 1500ml per day FOllow up with your operations recruiter in 7 days. Follow up with your PCP in 1-2 weeks Follow up with Urology, Dr Sierra for Bergeron removal. Go to the ER if any worsening of shortness of breath, or any new concerning symptom. Bergeron catheter care as per protocol at [facility]. - Follow up Plan Follow up with: Brian Francisco MD [Primary Care Provider] - Josselyn Hale MD [Physician] - Leonard Sierra MD [Physician] - Disposition: Xfer SNF Prognosis: Fair Rehab Potential: Fair I certify that the patient requires SNF services: Yes Overall status at discharge: patient is progressing back to baseline Medical - DS: Qual - VTE Deep Vein Thrombosis/Pulmonary Embolism Present on Admission: No
[2017-03-01] MEDS: VITAMIN D3 5,000 UNIT CAPSULE PO SCH (10:35)
[2017-03-01] MEDS: CARVEDILOL 3.125 MG TABLET PO SCH (10:36)
== END 2017-03-01 11:45 | DRG 302 ==
LOC: ED 18:46 → ICU 23:12 → MEDSUR 02-27 11:55
PROVIDERS: ADMIT Internal Medicine; ATTEND Internal Medicine

== ENCOUNTER 2017-07-02 16:21 | Inpatient (IN) ==
[2017-07-02] MEDS ORDERED: IOPAMIDOL 100 ML BOTTLE IJ ONE (16:22)
[2017-07-02] MEDS ORDERED: IPRATROPIUM/ALBUTEROL 3 ML AMPUL.NEB NEB ONE (16:58)
[2017-07-02] MEDS ORDERED: PIPERACILLIN SODIUM/TAZOBACTAM 3.375 GM in DEXTROSE 5% IN WATER 50 ML IV SCH ×2 (17:00→22:35)
[2017-07-02 17:14] LABS: Basophils # (Auto) 0.1 K/mcL (0.0-0.3); Basophils % (Auto) 0.6 % (0.0-2.0); Eosinophils # (Auto) 0.5 K/mcL (0.0-0.7); Eosinophils % (Auto) 3.9 % (0.0-7.0); Granulocytes % (Auto) 80.1 % (38.0-78.0); Lymphocytes # (Auto) 1.2 K/mcL (1.5-4.8); Lymphocytes % (Auto) 10.4 % (15.5-49.0); Mean Cell Volume 92.6 fL (80.0-100.0); Mean Corpuscular HGB Conc 33.2 g/dL (31.0-36.0); Mean Corpuscular Hemoglobin 30.8 pg (26.0-34.0); Monocytes # (Auto) 0.6 K/mcL (0.1-0.9); Platelet Count 227 K/mcL (140-440); RBC 3.83 M/mcL (4.50-5.90); Red Cell Distribution Width 19.2 % (11.5-14.5)
[2017-07-02 17:35] LABS: ALT/SGPT 191 U/l (0-40); Albumin 3.1 gm/dL (3.2-5.2); Albumin/Globulin Ratio 0.7 (1.0-2.3); Alkaline Phosphatase 104 U/L (39-117); Blood Urea Nitrogen 26 mg/dl (8-23)
--- NOTE | 2017-07-02 18:04 | XRay Report ---
INDICATION: Dyspnea TECHNIQUE: AP chest x-ray,upright portable COMPARISON: 06/24/2017, 04/08/2017, 02/21/2017 FINDINGS:No change in left transvenous pacemaker Possible left perihilar pulmonary nodule. This is not identified on prior examination but may have been obscured by overlying pacemaker. CT scan recommended for further evaluation. Lungs are otherwise negative. Heart size is mildly enlarged, stable. No pulmonary congestion. No pulmonary edema. No pleural fluid IMPRESSION: 1. Possible left perihilar nodule. Recommend CT scan 2. Mild cardiomegaly. No congestive heart failure. Interpreted and Authenticated by: Yahir Houston 07/02/17
--- NOTE | 2017-07-02 20:22 | Emergency Department Note ---
General Adult HPI - General Chief complaint: Shortness of Breath/Dyspnea Stated complaint: Low Saturation Time Seen by Provider: 07/02/17 16:42 Source: patient, family, other Mode of arrival: wheelchair Limitations: no limitations - History of Present Illness HPI Narrative: 82-year-old male brought in from [facility] for fever of 99.2 and shortness of breath this afternoon. He is globally weak. He denies any anywhere. He has severe heart failure which is not new. He is also diabetic and has a history of urinary retention-he does not have a Bergeron now but was sent home after discharge in February with a Bergeron. He is DNR/DNI-states that explicitly - Related Data Home Medications Medication Instructions Recorded Confirmed cholecalciferol (vitamin D3) 5,000 5,000 unit PO QDAY cap 02/13/15 06/24/17 unit capsule lancets See Dose Instructions .ROUTE 02/13/15 03/08/17 .MEDSUPPLY nitroglycerin 0.4 mg sublingual 0.4 mg SUBLINGUAL Q5MIN PRN tab 02/13/15 tablet Aspirin [Jeanine Chewable Aspirin] 81 mg PO DAILY 02/24/17 06/24/17 Potassium Chloride [Klor-Con 10] 20 meq PO DAILY 02/24/17 06/24/17 Torsemide [Demadex] 20 mg PO DAILY 04/08/17 06/24/17 Previous Rx's Medication Instructions Recorded Carvedilol [Coreg] 3.125 mg PO BIDCC tab 03/01/17 Digoxin [Lanoxin] 125 mcg PO DAILY@1400 tab 03/01/17 pravastatin 20 mg tablet 20 mg PO QHS #30 tab 04/23/17 blood sugar diagnostic strips See Dose Instructions .ROUTE 04/26/17 .MEDSUPPLY #100 each sitagliptin 100 mg tablet 100 mg PO QDAY #30 tab 05/01/17 furosemide 20 mg tablet 20 mg PO DAILY #90 tab 05/02/17 tamsulosin 0.4 mg capsule 0.4 mg PO HS #90 cap 05/15/17 lisinopril 2.5 mg tablet 2.5 mg PO DAILY #60 tab 05/24/17 Allergies Allergy/AdvReac Type Severity Reaction Status Date / Time peanut Allergy Other Verified 07/02/17 16:27 Review of Systems All systems ED: reviewed and negative except as stated. Past Medical History - Past Medical History Attestation: Yes: The following information was validated with the patient. Medical history: Reports: CHF, coronary artery disease, diabetes, hyperlipidemia , myocardial infarction, other (ICD, SVT, rretinal detachment, ischemic cardiomyopathy, urine retention, psoriasis) Surgical history ED: Reports: angioplasty/stent, pacemaker/AICD - Social History smoking status: Never smoker Alcohol use: Reports: Occasionally Drug use: Reports: none Physical Exam No acute distress resting comfortably. Thin male with some pallor. Normocephalic atraumatic. Conjunctive are clear sclerae nonicteric. No nasal discharge or congestion. Oropharynx is pink but with dry buccal mucosa. Posterior pharynx is clear. Neck is supple without lymphadenopathy or thyromegaly. Heart is regular rate and rhythm. Lungs with a slight end expiratory wheeze and occasional cough with deep inspiration and expiration. However no acute respiratory distress. Abdomen soft nontender nondistended. No pedal edema. +2 radial pulse. Alert oriented able to answer questions appropriately. However when he first came in he did have some lethargy but gradually improved. Limitations: no limitations Course Vital Signs Temperature 99.2 F H 07/02/17 16:22 Pulse Rate 96 H 07/02/17 16:22 Respiratory Rate 20 07/02/17 16:22 Blood Pressure 105/76 07/02/17 16:22 Pulse Oximetry (%) 100 07/02/17 16:22 Temperature 97.2 F 07/03/17 07:55 Pulse Rate 82 07/02/17 20:30 Respiratory Rate 16 07/03/17 07:55 Blood Pressure 97/67 07/03/17 07:55 Pulse Oximetry (%) 97 07/03/17 07:55 Medical Decision Making - Medical Records Medical records reviewed: Yes I reviewed the patient's medical records. - Lab Data Lab results reviewed: Yes I reviewed the patient's lab results. Result diagrams: 07/03/17 04:20 07/03/17 04:20 Lab Results 07/02/17 07/02/17 07/02/17 Range/Units 16:47 16:47 17:25 WBC 11.7 H (4.5-11.0) K/mcL RBC 3.83 L (4.50-5.90) M/mcL Hgb 11.8 L (13.5-16.5) g/dL Hct 35.5 L (41.0-55.0) % POC Hct (41.0-55.0) % MCV 92.6 (80.0-100.0) fL MCH 30.8 (26.0-34.0) pg MCHC 33.2 (31.0-36.0) g/dL RDW 19.2 H (11.5-14.5) % Plt Count 227 (140-440) K/mcL MPV 8.7 (7.4-10.4) fL Gran % 80.1 H (38.0-78.0) % Lymph % (Auto) 10.4 L (15.5-49.0) % [place] % (Auto) 5.0 (1.0-12.0) % Eos % (Auto) 3.9 (0.0-7.0) % Baso % (Auto) 0.6 (0.0-2.0) % Gran # 9.4 H (1.8-8.0) K/mcL Lymph # (Auto) 1.2 L (1.5-4.8) K/mcL [place] # (Auto) 0.6 (0.1-0.9) K/mcL Eos # (Auto) 0.5 (0.0-0.7) K/mcL Baso # (Auto) 0.1 (0.0-0.3) K/mcL VBG Lactic Acid 1.8 (0.5-2.2) mmol/L POC Sodium (133-145) mmol/L Sodium 138 (133-145) mmol/L POC Potassium (3.3-5.1) mmol/L Potassium 3.7 (3.3-5.1) mmol/L POC Chloride (96-108) mmol/L Chloride 92 L (96-108) mmol/L Carbon Dioxide 32 H (22-30) mmol/L POC Total CO2 (22-30) mmol/L Anion Gap 14.0 (8-16) POC BUN (8-23) mg/dl BUN 26 H (8-23) mg/dl Creatinine 1.8 H (0.7-1.2) mg/dl POC Creatinine (0.7-1.2) mg/dl GFR Calculation 35 Glucose 174 H (70-105) mg/dL POC Glucose (70-105) mg/dL Calcium 10.5 H (8.6-10.4) mg/dl POC WB Ioniz Calcium (1.16-1.32) mmol/L Total Bilirubin 1.0 (0.0-1.0) mg/dL AST 82 H (0-37) U/l ALT 191 H (0-40) U/l Alkaline Phosphatase 104 (39-117) U/L NT-Pro-B Natriuret Pep (0-450) pg/ml Total Protein 7.7 (5.9-8.4) gm/dL Albumin 3.1 L (3.2-5.2) gm/dL Globulin 4.6 H (2.2-3.7) gm/dL Albumin/Globulin Ratio 0.7 L (1.0-2.3) 07/02/17 Range/Units 17:25 WBC (4.5-11.0) K/mcL RBC (4.50-5.90) M/mcL Hgb (13.5-16.5) g/dL Hct (41.0-55.0) % POC Hct 37.0 L (41.0-55.0) % MCV (80.0-100.0) fL MCH (26.0-34.0) pg MCHC (31.0-36.0) g/dL RDW (11.5-14.5) % Plt Count (140-440) K/mcL MPV (7.4-10.4) fL Gran % (38.0-78.0) % Lymph % (Auto) (15.5-49.0) % [place] % (Auto) (1.0-12.0) % Eos % (Auto) (0.0-7.0) % Baso % (Auto) (0.0-2.0) % Gran # (1.8-8.0) K/mcL Lymph # (Auto) (1.5-4.8) K/mcL [place] # (Auto) (0.1-0.9) K/mcL Eos # (Auto) (0.0-0.7) K/mcL Baso # (Auto) (0.0-0.3) K/mcL VBG Lactic Acid (0.5-2.2) mmol/L POC Sodium 137 (133-145) mmol/L Sodium (133-145) mmol/L POC Potassium 3.7 (3.3-5.1) mmol/L Potassium (3.3-5.1) mmol/L POC Chloride 96 (96-108) mmol/L Chloride (96-108) mmol/L Carbon Dioxide (22-30) mmol/L POC Total CO2 33 H (22-30) mmol/L Anion Gap (8-16) POC BUN 30 H (8-23) mg/dl BUN (8-23) mg/dl Creatinine (0.7-1.2) mg/dl POC Creatinine 1.8 H (0.7-1.2) mg/dl GFR Calculation Glucose (70-105) mg/dL POC Glucose 155 H (70-105) mg/dL Calcium (8.6-10.4) mg/dl POC WB Ioniz Calcium 1.22 (1.16-1.32) mmol/L Total Bilirubin (0.0-1.0) mg/dL AST (0-37) U/l ALT (0-40) U/l Alkaline Phosphatase (39-117) U/L NT-Pro-B Natriuret Pep 73047.0 H (0-450) pg/ml Total Protein (5.9-8.4) gm/dL Albumin (3.2-5.2) gm/dL Globulin (2.2-3.7) gm/dL Albumin/Globulin Ratio (1.0-2.3) Blood gas shows pH 7.57 with PCO2 of 40 and PO2 of 67 on oxygen - Radiology Data Radiology results reviewed: Yes I reviewed the patient's radiology results. Chest x-ray was initially done which showed a perihilar nodule and so CT scan was done of the chest abdomen and pelvis because of the leukocytosis and fever as well as the perihilar nodule CT scan shows emphysematous cystitis as well as thickened gallbladder with multiple gallstones. Multiple other findings seen including mild to moderate hydronephrosis likely from urinary retention I also reviewed his previous echocardiogram which showed ejection fraction of 15 -20% which is severe CHF - EKG Data EKG #1 EKG attestation: Yes I reviewed and interpreted this EKG. EKG results narrative: EKG shows left bundle branch block with a rate of 93. 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: No Clinical Impression: Emphysematous cystitis, Urinary retention UTI (urinary tract infection) Qualifiers: Urinary tract infection type: acute cystitis Hematuria presence: with hematuria Qualified Code(s): N30.01 - Acute cystitis with hematuria CHF (congestive heart failure), NYHA class IV Qualifiers: Congestive heart failure type: unspecified congestive heart failure type Qualified Code(s): I50.9 - Heart failure, unspecified Cholelithiasis Qualifiers: Cholelithiasis location: gallbladder Cholecystitis presence: without cholecystitis Biliary obstruction: without biliary obstruction Qualified Code(s) : K80.20 - Calculus of gallbladder without cholecystitis without obstruction Summary: Patient is initially worked up with laboratory and imaging. Pressures are on the low normal side but with his severe heart failure I am hesitant to start IV fluids Bergeron catheter is placed for urinary retention and hydronephrosis seen on CT. I discussed his case with Dr. Howard Bautista-he is not a good candidate for cholecystectomy because of his severe heart failure and the patient does not want this either. However Dr. Bautista did say that it would be reasonable to percutaneous drainage of the gallbladder in a place where they had cardiac resources. Dr. Houston the radiologist recommended that we get an ultrasound of the gallbladder first before considering this- CT scan also showed emphysematous cystitis which is typically due to gas producing bacteria like E. coli-Zosyn is started. I discussed the situation with Dr. Martinez the hospitalist who agreed to accept the patient for further inpatient care Disposition: Xfer As Inpt ([facility]) Condition: Fair
--- NOTE | 2017-07-02 21:33 | Internal Med History&Physical ---
Medical - H&P: HPI Patient information: Note initiated : 07/02/17 at 9:30 pm Service Date, if different from initiated Date: [] Patient: Alcides Lopez 82 y/o M admitted on for Low Saturation. Chief Complaint: [] History of present illness: Mr. Lopez is a 82 year old Male, [place] resident with CHF, with very poor ejection fraction, bph , with h/o urinary retention in the past, presents to the ER today from the [place] for shortness of breath and low grade temperature. The patient has no other complaints, According to the ER p hysician who spoke to the the patients noted taht the patient was briefly short of breath this afternoon and was therefore sent here for further evaluation. The patient denies any other complaints. Triage note also mentions difficulty in keeping osat at acceptable levels. the patient had a low grade temp on presentation, his CXR was neg for pna or chf , pts vitals stable, and stats > 90 on room air. patient labs as follows Laboratory Tests 07/02/17 07/02/17 07/02/17 16:47 16:47 17:25 WBC 11.7 H Hgb 11.8 L Plt Count 227 VBG Lactic Acid 1.8 POC Potassium POC Creatinine Calcium 10.5 H AST 82 H ALT 191 H NT-Pro-B Natriuret Pep Albumin 3.1 L 07/02/17 17:25 WBC Hgb Plt Count VBG Lactic Acid POC Potassium 3.7 POC Creatinine 1.8 H Calcium AST ALT NT-Pro-B Natriuret Pep 98520.0 H Albumin The patient X ray chset had questional nodule CT chets abdomen and pelvis was ordered which showed significant for gall stones , possible cholecysititis? The patient also had enlarged bladder with thickened bladder wall, air insite the bladder and air insite the bladder wall. The patient case was reviewed by Dr Bautista who did not feel that patient is a surgical candidate. The patient also does not wish surgical treatment for his gall stones, he is asyptomatic from gall stones. Given that he has leucocytosis, and gas in the bladde wall, he was admitted to the hospital for further management. His BNP is elevated and more than before, his renal function was also not at baseline. All systems: reviewed and no additional remarkable complaints except as stated ( as per HPI) Medical - H&P: PMH Medical history: Medical History Urinary retention (Acute) Encounter for removal of sutures (Acute) Heart failure (Acute) CHF (congestive heart failure), NYHA class IV (Acute) CHF exacerbation (Acute) Pneumonia, aspiration (Acute) CHF (congestive heart failure) (Acute) Sepsis (Acute) Deficient knowledge of congestive heart failure (CHF) (Acute) UTI (urinary tract infection) (Acute) Emphysematous cystitis (Acute) Cholelithiasis (Acute) Acute urinary retention (Acute) CHF (congestive heart failure) (Chronic) Detrusor dysfunction (Chronic) Actinic keratosis (Chronic) Basal cell carcinoma of skin (Chronic) Supraventricular tachycardia (Chronic) Retinal detachment (Chronic) Psoriasis (Chronic) Orthostasis (Chronic) Myocardial infarct (Chronic) Memory loss (Chronic) Ischemic cardiomyopathy (Chronic) Inguinal hernia (Chronic) Hypertension (Chronic) Hyperlipidemia (Chronic) Heart disease (Chronic) Diabetes (Chronic) Pain (Chronic 09/24/15) Surgical history: Past Surgical History History of implantable cardioverter-defibrillator (ICD) placement (Chronic) Pertinent family history: Family History father Malignant neoplasm of prostate Father Secondary malignant neoplasm of respiratory tract Mother Myocardial Infarction, Onset Age: 68 Medical - H&P: Meds Home Medications Medication Instructions Recorded Confirmed Type cholecalciferol (vitamin D3) 5,000 5,000 unit PO QDAY cap 02/13/15 06/24/17 History unit capsule lancets See Dose Instructions .ROUTE 02/13/15 03/08/17 History .MEDSUPPLY nitroglycerin 0.4 mg sublingual 0.4 mg SUBLINGUAL Q5MIN PRN tab 02/13/15 History tablet Aspirin [Jeanine Chewable Aspirin] 81 mg PO DAILY 02/24/17 06/24/17 History Potassium Chloride [Klor-Con 10] 20 meq PO DAILY 02/24/17 06/24/17 History Carvedilol [Coreg] 3.125 mg PO BIDCC tab 03/01/17 06/24/17 Rx Digoxin [Lanoxin] 125 mcg PO DAILY@1400 tab 03/01/17 06/24/17 Rx Torsemide [Demadex] 20 mg PO DAILY 04/08/17 06/24/17 History pravastatin 20 mg tablet 20 mg PO QHS #30 tab 04/23/17 06/24/17 Rx blood sugar diagnostic strips See Dose Instructions .ROUTE 04/26/17 Rx .MEDSUPPLY #100 each sitagliptin 100 mg tablet 100 mg PO QDAY #30 tab 05/01/17 06/24/17 Rx furosemide 20 mg tablet 20 mg PO DAILY #90 tab 05/02/17 06/24/17 Rx tamsulosin 0.4 mg capsule 0.4 mg PO HS #90 cap 05/15/17 06/24/17 Rx lisinopril 2.5 mg tablet 2.5 mg PO DAILY #60 tab 05/24/17 06/24/17 Rx Allergies Allergy/AdvReac Type Severity Reaction Status Date / Time peanut Allergy Other Verified 07/02/17 16:27 Medical - H&P: Exam - Constitutional Vitals: Temp Pulse Resp BP Pulse Ox 98.2 F 82 11 L 94/63 99 07/02/17 19:06 07/02/17 20:30 07/02/17 20:46 07/02/17 20:30 07/02/17 20:30 Exam: GENERAL: The patient is a well-developed, well-nourished in no apparent distress. Is alert and oriented x3. malnoursied, temporal wasting not ed. VITAL SIGNS: Reviewed and as noted elsewhere. HEENT: Head is normocephalic and atraumatic. Extraocular muscles are intact. Pupils are equal, round, and reactive to light. Nares appeared normal. Mouth appears any without lesions. Mucous membranes are dry NECK: Normal to inspection, Supple, No lymphadenopathy or thyromegaly. LUNGS: Air entry equal on both sides, no wheezing, crackles or rhonchi noted. No accessory muscles of respiration HEART: Regular rate and rhythm normal, S1 and S2 heard, no Gallop, S3 or Rub Noted, No Gross murmur heard. ABDOMEN: Soft, nontender, and nondistended. Positive bowel sounds. No hepatosplenomegaly was noted. EXTREMITIES: No cyanosis, clubbing, rash, lesions or edema. NEUROLOGIC: Cranial nerves II through XII are grossly intact. Motor and Sensory System Grossly Intact PSYCHIATRIC: Normal affect, Normal Mood. Appropriate Behavior. SKIN: No ulceration or wounds noted, No jaundice, No rash noted. Medical - H&P: Reslt - Labs CBC & Chem 7: 07/02/17 16:47 07/02/17 16:47 Labs: Short CBC 07/02/17 Range/Units 16:47 WBC 11.7 H (4.5-11.0) K/mcL Hgb 11.8 L (13.5-16.5) g/dL Hct 35.5 L (41.0-55.0) % Plt Count 227 (140-440) K/mcL BMP 07/02/17 16:47 Sodium 138 Potassium 3.7 Chloride 92 L Carbon Dioxide 32 H BUN 26 H Creatinine 1.8 H Glucose 174 H Calcium 10.5 H Liver Function 07/02/17 Range/Units 16:47 Total Bilirubin 1.0 (0.0-1.0) mg/dL AST 82 H (0-37) U/l ALT 191 H (0-40) U/l Alkaline Phosphatase 104 (39-117) U/L Albumin 3.1 L (3.2-5.2) gm/dL Medical - H&P: A/P - Narrative A/P Narrative: A/P Complicated emphysematous Cystitits cholelithiasis/ Cholecystitis Sepsis Congestive Heart failiure Hypokalemia Acute Kidney Injury HTN HLD CAD Plan Admit to tele HUI ayon, Await blood and urine culture results 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 Will Talk with Dr Sierra in AM and see if any other treatment options are available. patients gall stones likely are not the source of the infection, pt has no GI symptoms and a very poor candidate for surgery. Pt does not wish for surgery Replace K IV fluids gentle, 250cc slowly for now, and recheck labs, trend creat Resume home meds for htn, hld as appropriate. BP is low, but has been chronically low. DVT hep sq Diet Cardiac OT/PT/ST DNR status reviewed with the patient. Social History - Tobacco smoking status: Never smoker - Alcohol alcohol intake frequency: former alcohol drinker
[2017-07-02] MEDS ORDERED: POTASSIUM CHLORIDE 20 MEQ PACKET PO ONE ×2 (21:38→22:35)
[2017-07-02] MEDS ORDERED: DEXTROSE 50% 50 ML VIAL IV PRN (22:35)
[2017-07-02] MEDS ORDERED: ACETAMINOPHEN 325 MG TABLET PO PRN (22:35)
[2017-07-02] MEDS ORDERED: ONDANSETRON 4 MG/2 ML VIAL IV PRN (22:35)
[2017-07-02] MEDS ORDERED: MAGNESIUM HYDROXIDE 30 ML ORAL.SUSP PO PRN (22:35)
[2017-07-02] MEDS ORDERED: 0.9 % SODIUM CHLORIDE 1,000 ML IV SCH (22:35)
[2017-07-02] MEDS ORDERED: DEXTROSE 31 GM ORAL.SUSP PO PRN (22:35)
[2017-07-03] MEDS: PIPERACILLIN SODIUM/TAZOBACTAM 3.375 GM in DEXTROSE 5% IN WATER 50 ML IV SCH ×4 (01:35→15:09)
[2017-07-03 05:08] LABS: Basophils # (Auto) 0.1 K/mcL (0.0-0.3); Eosinophils # (Auto) 0.4 K/mcL (0.0-0.7); Granulocytes % (Auto) 81.6 % (38.0-78.0); Lymphocytes # (Auto) 0.9 K/mcL (1.5-4.8); Mean Cell Volume 95.4 fL (80.0-100.0); Mean Corpuscular HGB Conc 32.8 g/dL (31.0-36.0); Mean Corpuscular Hemoglobin 31.2 pg (26.0-34.0); Monocytes # (Auto) 0.5 K/mcL (0.1-0.9); Monocytes % (Auto) 4.4 % (1.0-12.0); Platelet Count 209 K/mcL (140-440); Red Cell Distribution Width 19.1 % (11.5-14.5)
[2017-07-03 05:33] LABS: ALT/SGPT 143 U/l (0-40); Albumin/Globulin Ratio 0.7 (1.0-2.3); Alkaline Phosphatase 92 U/L (39-117); Bilirubin,Direct 0.5 mg/dL (0.0-0.3); Blood Urea Nitrogen 25 mg/dl (8-23); Gamma Glutamyl Transpeptidase 58 U/L (8-61); Magnesium 1.9 mg/dL (1.6-2.5); Uric Acid 7.1 mg/dL (2.5-8.0)
[2017-07-03] MEDS: INSULIN LISPRO 1 UNIT/0.01 ML UNIT SQ SCH ×4 (08:41→23:02)
[2017-07-03] MEDS: ENOXAPARIN 40 MG/0.4 ML SYRINGE SQ SCH (08:43)
[2017-07-03] MEDS: DOCUSATE SODIUM 100 MG CAPSULE PO SCH ×2 (08:43→23:02)
--- NOTE | 2017-07-03 10:59 | Cat Scan Report ---
CLINICAL INFORMATION: Abdominal pain. Fever. Abnormal liver function tests. Possible left lung nodule COMPARISON: Chest x-ray dated 07/02/2017 TECHNIQUE: Pre and postcontrast axial images were obtained through the chest, abdomen and pelvis. Sagittally and coronally reformatted images. 70 mL nonionic contrast material injected intravenously. FINDINGS: Previous chest x-ray was suspicious for left perihilar nodule. This is not present. Appearance is related to prominent vessel on end.. There is a focal 5 mm noncalcified nodule at the left lung base, image 71. In a low risk patient no follow-up is necessary. In a high-risk patient a 12 month follow-up is optional. Lungs are otherwise negative. No significant bronchiectasis or emphysematous change. There is cardiomegaly with marked enlargement of the left ventricle. No pericardial fluid. No significant pleural fluid. There is a single pleural-based calcification at the left lung base posteriorly. Pulmonary CTA was not performed but the pulmonary vasculature is well-opacified and there is no pulmonary embolism. Thoracic aorta is negative. No thoracic aortic aneurysm. There is coronary artery calcification. There is a probable stent within the left anterior descending coronary artery. There is dilatation of the esophagus. This may be due to a correlation with a distal obstructing mass is possible. Endoscopy or barium swallow recommended. Liver is negative. No hepatic mass. Liver contour is smooth. Multiple calcified gallstones within the gallbladder lumen. There is mild pericholecystic fluid. Cholecystitis is possible. No dilated bile ducts. There is mild bilateral hydronephrosis and hydroureter. No obstructing calculi. There is a 2.6 cm mid pole right renal cyst. There is an irregular cystic abnormality which is exophytic and contains calcification. This is in the right kidney. This is probably benign. Baseline ultrasound and follow-up ultrasound examination is recommended. There is a small benign left renal cyst. Urinary bladder is abnormal. There is a Bergeron catheter in place. There is intraluminal gas. There are also intramural gas bubbles with bladder wall thickening. Appearance is consistent with emphysematous cystitis. Clinical correlation for history of diabetes recommended. Negative pancreas. No pancreatic mass. No peripancreatic abnormality. Probable 15 mm left adrenal nodule.] Right adrenal gland is negative. Negative spleen. No splenomegaly. Colon is negative. No diverticulitis. No detectable mass. No appendicitis. No mechanical small bowel obstruction. No retroperitoneal or mesenteric adenopathy. There is calcification of the abdominal aorta. No abdominal aortic aneurysm. There is a small amount of free intraperitoneal fluid. No detectable abscess. No pneumoperitoneum. No biliary or portal venous gas. No pneumatosis. Multilevel degenerative disc disease. No lumbar compression fracture. Sacrum and pelvis are negative. No lytic lesions IMPRESSION: 1. No left perihilar pulmonary parenchymal nodule. There is a left basilar noncalcified nodule which is probably benign. See above recommendations. 2. Cardiomegaly with marked left ventricular enlargement 3. Dilated esophagus. Although this may be related to ectasia a distal obstructing lesion is not excluded. Barium swallow or endoscopy recommended 4. Cholelithiasis. Possible cholecystitis. 5. Small amount of free intraperitoneal fluid. No intra-abdominal abscess 6. Urinary bladder wall thickening with mural gas bubbles consistent with emphysematous cystitis 7. Mild hydronephrosis. This may be chronic. There are bilateral renal cysts as described above. Interpreted and Authenticated by: Yahir Houston 07/02/17
--- NOTE | 2017-07-03 15:45 | Internal Med Progress Note ---
Medical - PN: Subj Patient information: Note initiated : 07/03/17 at 3:38 pm Service Date, if different from initiated Date: [] Patient: Alcides Lopez 82 y/o M admitted on 07/02/17 for Low Saturation/ Emphysematous Cystitis, Sepsis, CHF. Chief Complaint: [] Interval history: Mr. Lopez is a 82 year old Male, [place] resident with CHF, with very poor ejection fraction, bph , with h/o urinary retention in the past, presents to the ER today from the [place] for shortness of breath and low grade temperature. The patient has no other complaints, According to the ER p hysician who spoke to the the patients noted taht the patient was briefly short of breath this afternoon and was therefore sent here for further evaluation. The patient denies any other complaints. Triage note also mentions difficulty in keeping osat at acceptable levels. the patient had a low grade temp on presentation, his CXR was neg for pna or chf , pts vitals stable, and stats > 90 on room air. patient labs as follows The patient X ray chest had questionable nodule CT chest abdomen and pelvis was ordered which showed significant for gall stones , possible cholecysititis? The patient also had enlarged bladder with thickened bladder wall, air inside the bladder and air inside the bladder wall. The patient case was reviewed by Dr Bautista who did not feel that patient is a surgical candidate. The patient also does not wish surgical treatment for his gall stones, he is asymptomatic from gall stones. Given that he has leucocytosis, and gas in the bladder wall, he was admitted to the hospital for further management. His BNP is elevated and more than before, his renal function was also not at baseline. July 02 Patient seen examined, feels at baseline, no acute overnight issues. I reviewed the case with Dr Díaz who advised to continue treating the bladder infection with IV antibiotics, no need for surgery, will need outpatient follow up with urology. Pt is already on flomax. 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 Aware that his prognosis overall is poor. Daughter at bedside is also aware of same. Pertinent ROS: Denies headache, dizziness Denies chest pain, palpitations Denies cough or shortness of breath Denies abdominal pain, nausea or vomiting. - Constitutional Vitals: Vital Signs Temp Pulse Resp BP Pulse Ox 99.3 F H 82 16 83/62 100 07/03/17 12:00 07/02/17 20:30 07/03/17 12:00 07/03/17 12:00 07/03/17 12:00 Period Temp Pulse Resp BP Sys/Culp Pulse Ox Last 24 Hr 97.2 F-99.3 F 82-96 11-28 67-105/58-76 95-100 Intake and Output 07/03/17 07/03/17 07/03/17 05:59 13:59 21:59 Intake Total 290 / 290 410 / 410 Output Total 1275 / 1275 725 / 725 Balance -985 / -985 -315 / -315 Weight 124 lb 12.8 oz 124 lb 12.8 oz Patient Weight 07/04/17 05:59 Weight 124 lb 12.8 oz Intake & Output: Intake & Output 07/03/17 07/03/17 07/03/17 05:59 13:59 21:59 Intake Total 290 / 290 410 / 410 Output Total 1275 / 1275 725 / 725 Balance -985 / -985 -315 / -315 Weight 124 lb 12.8 oz 124 lb 12.8 oz Intake: IV 50 / 50 50 / 50 Zosyn 3.375 gm In Dextrose 5% 50 / 50 50 / 50 in Water 50 ml @ 100 mls/hr IV Q6H [facility] Rx#:[id number] Oral 240 / 240 360 / 360 Output: Urine Catheter Amount 1275 / 1275 725 / 725 Other: Meal Lunch Percent of Meal Consumed 100% Exam: Constitutional; Afebrile, cooperative, alert, not in distress. Eyes- No icterus, , No periorbital swelling Ears- Ext ear normal, hearing normal to conversation. Neck- Midline trachea, supple Respiratory system: Air Entry equal on both sides, No crackles or wheezing, no rhonchi. CVS- Rate rhythm regular, S1,S2 heard, no gallop, no rub. Abdomen- Soft nontender abdomen, no organomegaly, no tenderness, no guarding or rigidity, PET TRAINING INSTRUCTOR- AOOx3, moving all extremities, no gross focal deficit noted. Medical - PN: Obj Da - Labs CBC & Chem 7: 07/03/17 04:20 07/03/17 04:20 Labs: Abnormal Lab Results 07/03/17 07/03/17 07/02/17 04:20 04:20 17:25 WBC RBC 3.60 L Hgb 11.3 L Hct 34.4 L POC Hct 37.0 L RDW 19.1 H Gran % 81.6 H Lymph % (Auto) 9.0 L Gran # 8.6 H Lymph # (Auto) 0.9 L Chloride 95 L Carbon Dioxide 31 H POC Total CO2 33 H POC BUN 30 H BUN 25 H Creatinine 1.6 H POC Creatinine 1.8 H Glucose 192 H POC Glucose 155 H Calcium Total Bilirubin 1.1 H Direct Bilirubin 0.5 H AST 57 H ALT 143 H NT-Pro-B Natriuret Pep 33351.0 H Albumin 3.0 L Globulin 4.1 H Albumin/Globulin Ratio 0.7 L 07/02/17 07/02/17 16:47 16:47 WBC 11.7 H RBC 3.83 L Hgb 11.8 L Hct 35.5 L POC Hct RDW 19.2 H Gran % 80.1 H Lymph % (Auto) 10.4 L Gran # 9.4 H Lymph # (Auto) 1.2 L Chloride 92 L Carbon Dioxide 32 H POC Total CO2 POC BUN BUN 26 H Creatinine 1.8 H POC Creatinine Glucose 174 H POC Glucose Calcium 10.5 H Total Bilirubin Direct Bilirubin AST 82 H ALT 191 H NT-Pro-B Natriuret Pep Albumin 3.1 L Globulin 4.6 H Albumin/Globulin Ratio 0.7 L Meds: Medications Acetaminophen (Tylenol) 650 mg PO Q6HP PRN PRN Reason: PAIN/FEVER > 101 Hydrocodone Bitart/Acetaminophen (Elkin 5/325mg) 1 tab PO Q4HP PRN PRN Reason: Pain Ceftriaxone Sodium (Rocephin) 2 gm IV Q24H [facility] Dextrose (Dextrose 50%) 0 ml IV UD PRN PRN Reason: Hypoglycemia Diagnostic Test (Pha) (Accu-Chek) 1 each FS ACHS [facility] Last Admin: 07/03/17 12:19 Dose: 1 each Docusate Sodium (Colace) 100 mg PO BID [facility] Last Admin: 07/03/17 08:43 Dose: 100 mg Enoxaparin Sodium (Lovenox) 40 mg SQ DAILY [facility] Last Admin: 07/03/17 08:43 Dose: 40 mg Glucose (Insta-Glucose) 15 gm PO PRN PRN PRN Reason: Hypoglycemia Insulin Human Lispro (Humalog) 0 unit SQ ACHS [facility] PRN Reason: Protocol Last Admin: 07/03/17 12:22 Dose: 2 unit Magnesium Hydroxide (Milk Of Magnesia) 30 ml PO DAILYP PRN PRN Reason: Constipation Ondansetron HCl (Zofran) 4 mg IV Q4HP PRN PRN Reason: Nausea And Vomiting Medical - PN: A/P - Time Spent With Patient Total time spent is greater than 50% in coordination of care (as documented) at patient's floor/unit and/or counseling patient: - Narrative A/P Narrative: A/P Complicated emphysematous Cystitits cholelithiasis/ Cholecystitis Sepsis Congestive Heart failiure Hypokalemia Acute Kidney Injury HTN HLD CAD Plan Continue to monitor on tele IV zosyn changed to rocephin, add flagyl for possible gall bladder involvement. pt not keen on Gall bladder surgeyr, and does not seem to be a candidate either. Patient needs custodial spangler it seems, will need outaptient follow up with urology creat is improving, hold off on IV fluids given very tenous cardiac status. Resume home meds for htn, hld as appropriate. BP is low, but has been chronically low. DVT hep sq Diet Cardiac OT/PT/ST DNR status reviewed with the patient. Medical - PN: Qual - VTE Deep Vein Thrombosis/Pulmonary Embolism Present on Admission: No
[2017-07-03] MEDS: cefTRIAXone 2 GM VIAL IV SCH (17:02)
[2017-07-04 05:50] LABS: Basophils # (Auto) 0.1 K/mcL (0.0-0.3); Basophils % (Auto) 0.8 % (0.0-2.0); Eosinophils # (Auto) 0.5 K/mcL (0.0-0.7); Eosinophils % (Auto) 5.7 % (0.0-7.0); Granulocytes % (Auto) 76.5 % (38.0-78.0); Lymphocytes # (Auto) 1.2 K/mcL (1.5-4.8); Lymphocytes % (Auto) 12.6 % (15.5-49.0); Mean Corpuscular HGB Conc 32.7 g/dL (31.0-36.0); Monocytes # (Auto) 0.4 K/mcL (0.1-0.9); Monocytes % (Auto) 4.4 % (1.0-12.0); Platelet Count 220 K/mcL (140-440); RBC 3.57 M/mcL (4.50-5.90); Red Cell Distribution Width 18.5 % (11.5-14.5)
[2017-07-04 06:18] LABS: ALT/SGPT 102 U/l (0-40); Albumin/Globulin Ratio 0.8 (1.0-2.3); Alkaline Phosphatase 88 U/L (39-117); Bilirubin,Direct 0.5 mg/dL (0.0-0.3); Blood Urea Nitrogen 25 mg/dl (8-23); Gamma Glutamyl Transpeptidase 56 U/L (8-61); Magnesium 1.8 mg/dL (1.6-2.5); Uric Acid 5.5 mg/dL (2.5-8.0)
[2017-07-04] MEDS: INSULIN LISPRO 1 UNIT/0.01 ML UNIT SQ SCH ×4 (07:29→20:49)
[2017-07-04] MEDS: cefTRIAXone 2 GM VIAL IV SCH (08:04)
[2017-07-04] MEDS: 0.9 % SODIUM CHLORIDE 10 ML SYRINGE IV SCH ×2 (08:05→20:49)
[2017-07-04] MEDS: BISOPROLOL 5 MG TABLET PO SCH (08:36)
[2017-07-04] MEDS: DOCUSATE SODIUM 100 MG CAPSULE PO SCH ×2 (08:36→20:49)
[2017-07-04] MEDS: ENOXAPARIN 40 MG/0.4 ML SYRINGE SQ SCH (08:36)
[2017-07-04] MEDS ORDERED: 0.9 % SODIUM CHLORIDE 10 ML SYRINGE IV PRN (14:49)
--- NOTE | 2017-07-04 14:51 | Internal Med Progress Note ---
Medical - PN: Subj Patient information: Note initiated : 07/04/17 at 2:49 pm Service Date, if different from initiated Date: [] Patient: Alcides Lopez 82 y/o M admitted on 07/02/17 for Low Saturation/ Emphysematous Cystitis, Sepsis, CHF. Chief Complaint: [] Interval history: Mr. Lopez is a 82 year old Male, [place] resident with CHF, with very poor ejection fraction, bph , with h/o urinary retention in the past, presents to the ER today from the [place] for shortness of breath and low grade temperature. The patient has no other complaints, According to the ER p hysician who spoke to the the patients noted taht the patient was briefly short of breath this afternoon and was therefore sent here for further evaluation. The patient denies any other complaints. Triage note also mentions difficulty in keeping osat at acceptable levels. the patient had a low grade temp on presentation, his CXR was neg for pna or chf , pts vitals stable, and stats > 90 on room air. patient labs as follows The patient X ray chest had questionable nodule CT chest abdomen and pelvis was ordered which showed significant for gall stones , possible cholecysititis? The patient also had enlarged bladder with thickened bladder wall, air inside the bladder and air inside the bladder wall. The patient case was reviewed by Dr Bautista who did not feel that patient is a surgical candidate. The patient also does not wish surgical treatment for his gall stones, he is asymptomatic from gall stones. Given that he has leucocytosis, and gas in the bladder wall, he was admitted to the hospital for further management. His BNP is elevated and more than before, his renal function was also not at baseline. July 02 Patient seen examined, feels at baseline, no acute overnight issues. I reviewed the case with Dr Díaz who advised to continue treating the bladder infection with IV antibiotics, no need for surgery, will need outpatient follow up with urology. Pt is already on flomax. Will likely need longterm spangler Patient is DNR, I reviewed longterm goals of care with the patient, he remains DNR, however not wanting comfort or palliative care. Aware that his prognosis overall is poor. Daughter at bedside is also aware of same. July 03 Patient seen examined, no acute overnight issues, home bp meds resumed, bp on the lower end pt sitting in chair, comfortable, denies any issues daughter by bed side Plan to get PICC today will need 14 days of antibiotics, given that he has severe complicated UTI, will treat with IV therapy monitor closely bp changes, resume oral diuretics once bp is more stable Pertinent ROS: Denies headache, dizziness Denies chest pain, palpitations Denies cough or shortness of breath Denies abdominal pain, nausea or vomiting. - Constitutional Vitals: Vital Signs Temp Pulse Resp BP Pulse Ox 99.3 F H 82 16 80/65 95 07/04/17 12:00 07/04/17 12:00 07/04/17 12:00 07/04/17 12:00 07/04/17 12:00 Period Temp Pulse Resp BP Sys/Culp Pulse Ox Last 24 Hr 97.6 F-99.3 F 82-105 16-24 80-105/65-76 91-100 Intake and Output 07/04/17 07/04/17 07/04/17 05:59 13:59 21:59 Intake Total 480 / 480 Output Total 1075 / 1075 Balance -595 / -595 Intake & Output: Intake & Output 07/04/17 07/04/17 07/04/17 05:59 13:59 21:59 Intake Total 480 / 480 Output Total 1075 / 1075 Balance -595 / -595 Intake: Oral 480 / 480 Output: Urine Catheter Amount 1075 / 1075 Exam: Constitutional; Afebrile, cooperative, alert, not in distress. Eyes- No icterus, , No periorbital swelling Ears- Ext ear normal, hearing normal to conversation. Neck- Midline trachea, supple Respiratory system: Air Entry equal on both sides, No crackles or wheezing, no rhonchi. CVS- Rate rhythm regular, S1,S2 heard, no gallop, no rub. Abdomen- Soft nontender abdomen, no organomegaly, no tenderness, no guarding or rigidity, [employer]- AOOx3, moving all extremities, no gross focal deficit noted. Medical - PN: Obj Da - Labs CBC & Chem 7: 07/04/17 03:55 07/04/17 03:55 Labs: Abnormal Lab Results 07/04/17 07/04/17 07/03/17 03:55 03:55 04:20 WBC RBC 3.57 L Hgb 11.1 L Hct 33.9 L POC Hct RDW 18.5 H Gran % Lymph % (Auto) 12.6 L Gran # Lymph # (Auto) 1.2 L Chloride 95 L Carbon Dioxide 31 H POC Total CO2 POC BUN BUN 25 H 25 H Creatinine 1.5 H 1.6 H POC Creatinine Glucose 153 H 192 H POC Glucose Calcium Total Bilirubin 1.1 H Direct Bilirubin 0.5 H 0.5 H AST 57 H ALT 102 H 143 H NT-Pro-B Natriuret Pep Albumin 3.0 L 3.0 L Globulin 3.8 H 4.1 H Albumin/Globulin Ratio 0.8 L 0.7 L 07/03/17 07/02/17 07/02/17 04:20 17:25 16:47 WBC RBC 3.60 L Hgb 11.3 L Hct 34.4 L POC Hct 37.0 L RDW 19.1 H Gran % 81.6 H Lymph % (Auto) 9.0 L Gran # 8.6 H Lymph # (Auto) 0.9 L Chloride 92 L Carbon Dioxide 32 H POC Total CO2 33 H POC BUN 30 H BUN 26 H Creatinine 1.8 H POC Creatinine 1.8 H Glucose 174 H POC Glucose 155 H Calcium 10.5 H Total Bilirubin Direct Bilirubin AST 82 H ALT 191 H NT-Pro-B Natriuret Pep 16052.0 H Albumin 3.1 L Globulin 4.6 H Albumin/Globulin Ratio 0.7 L 07/02/17 16:47 WBC 11.7 H RBC 3.83 L Hgb 11.8 L Hct 35.5 L POC Hct RDW 19.2 H Gran % 80.1 H Lymph % (Auto) 10.4 L Gran # 9.4 H Lymph # (Auto) 1.2 L Chloride Carbon Dioxide POC Total CO2 POC BUN BUN Creatinine POC Creatinine Glucose POC Glucose Calcium Total Bilirubin Direct Bilirubin AST ALT NT-Pro-B Natriuret Pep Albumin Globulin Albumin/Globulin Ratio Meds: Medications Acetaminophen (Tylenol) 650 mg PO Q6HP PRN PRN Reason: PAIN/FEVER > 101 Hydrocodone Bitart/Acetaminophen (Premier 5/325mg) 1 tab PO Q4HP PRN PRN Reason: Pain Bisoprolol Fumarate (Zebeta) 2.5 mg PO DAILY [facility] Last Admin: 07/04/17 08:36 Dose: 2.5 mg Ceftriaxone Sodium (Rocephin) 2 gm IV Q24H [facility] Last Admin: 07/04/17 08:04 Dose: 2 gm Dextrose (Dextrose 50%) 0 ml IV UD PRN PRN Reason: Hypoglycemia Diagnostic Test (Pha) (Accu-Chek) 1 each FS ACHS [facility] Last Admin: 07/04/17 12:12 Dose: 1 each Docusate Sodium (Colace) 100 mg PO BID [facility] Last Admin: 07/04/17 08:36 Dose: 100 mg Enoxaparin Sodium (Lovenox) 40 mg SQ DAILY [facility] Last Admin: 07/04/17 08:36 Dose: 40 mg Glucose (Insta-Glucose) 15 gm PO PRN PRN PRN Reason: Hypoglycemia Insulin Human Lispro (Humalog) 0 unit SQ ACHS [facility] PRN Reason: Protocol Last Admin: 07/04/17 12:12 Dose: 3 unit Magnesium Hydroxide (Milk Of Magnesia) 30 ml PO DAILYP PRN PRN Reason: Constipation Ondansetron HCl (Zofran) 4 mg IV Q4HP PRN PRN Reason: Nausea And Vomiting Simvastatin (Zocor) 10 mg PO HS [facility] Sodium Chloride (Saline Flush) 10 ml IV Q12 [facility] Last Admin: 07/04/17 08:05 Dose: 10 ml Tamsulosin HCl (Flomax) 0.4 mg PO [facility] Medical - PN: A/P - Time Spent With Patient Total time spent is greater than 50% in coordination of care (as documented) at patient's floor/unit and/or counseling patient: - Narrative A/P Narrative: A/P Complicated emphysematous Cystitits cholelithiasis/ Cholecystitis Sepsis Congestive Heart failiure Hypokalemia Acute Kidney Injury HTN HLD CAD Plan Continue to monitor on tele, given tenous cardiovascular status. continue on rocephin and flagyl for now. pt not keen on Gall bladder surgeyr, and does not seem to be a candidate either. Patient needs longterm spangler it seems, will need outaptient follow up with urology, case reviewed with edenilson gonzalez, advised just antibiotics for now. creat is stable Resume home meds for htn, hld as appropriate. diuretic still on hold, will resume if able to DVT hep sq Diet Cardiac OT/PT/ST DNR status reviewed with the patient. Medical - PN: Qual - VTE Deep Vein Thrombosis/Pulmonary Embolism Present on Admission: No
--- NOTE | 2017-07-04 19:17 | XRay Report ---
INDICATION: PICC line placement TECHNIQUE: AP portable chest x-ray, COMPARISON: Previous chest x-ray dated 07/02/[address] scan dated 07/02/2017 FINDINGS:No change in left transvenous pacemaker lead Right-sided PICC line with its tip in the superior vena cava. This is in good position. No acute pulmonary parenchymal infiltrate. No evidence for congestive heart failure. IMPRESSION: Right-sided PICC line in the superior vena cava. Interpreted and Authenticated by: Yahir Houston 07/04/17
[2017-07-04] MEDS: SIMVASTATIN 10 MG TABLET PO SCH (20:49)
[2017-07-04] MEDS: HYDROcodone/APAP 5/325MG TABLET PO PRN (20:49)
[2017-07-04] MEDS: TAMSULOSIN 0.4 MG CAPSULE PO SCH (20:49)
[2017-07-05 05:07] LABS: Basophils # (Auto) 0.1 K/mcL (0.0-0.3); Basophils % (Auto) 1.1 % (0.0-2.0); Eosinophils # (Auto) 0.6 K/mcL (0.0-0.7); Eosinophils % (Auto) 7.6 % (0.0-7.0); Granulocytes % (Auto) 70.6 % (38.0-78.0); Lymphocytes # (Auto) 1.3 K/mcL (1.5-4.8); Lymphocytes % (Auto) 16.3 % (15.5-49.0); Mean Cell Volume 95.2 fL (80.0-100.0); Mean Corpuscular HGB Conc 32.8 g/dL (31.0-36.0); Mean Corpuscular Hemoglobin 31.2 pg (26.0-34.0); Monocytes # (Auto) 0.3 K/mcL (0.1-0.9); Monocytes % (Auto) 4.4 % (1.0-12.0); Platelet Count 239 K/mcL (140-440); RBC 3.47 M/mcL (4.50-5.90); Red Cell Distribution Width 18.3 % (11.5-14.5)
[2017-07-05 05:22] LABS: ALT/SGPT 77 U/l (0-40); Albumin 2.9 gm/dL (3.2-5.2); Albumin/Globulin Ratio 0.8 (1.0-2.3); Alkaline Phosphatase 94 U/L (39-117); Bilirubin,Direct 0.4 mg/dL (0.0-0.3); Blood Urea Nitrogen 25 mg/dl (8-23); Gamma Glutamyl Transpeptidase 58 U/L (8-61); Magnesium 1.9 mg/dL (1.6-2.5); Uric Acid 5.2 mg/dL (2.5-8.0)
[2017-07-05] MEDS: INSULIN LISPRO 1 UNIT/0.01 ML UNIT SQ SCH ×4 (06:55→20:27)
[2017-07-05] MEDS: BISOPROLOL 5 MG TABLET PO SCH (08:58)
[2017-07-05] MEDS: DOCUSATE SODIUM 100 MG CAPSULE PO SCH ×2 (08:58→20:28)
[2017-07-05] MEDS: TORSEMIDE 10 MG TABLET PO SCH (08:58)
[2017-07-05] MEDS: POTASSIUM CHLORIDE 10 MEQ TABLET PO SCH ×2 (08:58→17:56)
[2017-07-05] MEDS: cefTRIAXone 2 GM VIAL IV SCH (08:59)
[2017-07-05] MEDS: 0.9 % SODIUM CHLORIDE 10 ML SYRINGE IV SCH ×2 (09:16→20:28)
[2017-07-05] MEDS: ENOXAPARIN 40 MG/0.4 ML SYRINGE SQ SCH (09:16)
--- NOTE | 2017-07-05 17:18 | Internal Med Progress Note ---
Medical - PN: Subj Patient information: Note initiated : 07/05/17 at 5:16 pm Service Date, if different from initiated Date: [] Patient: Alcides Lopez 82 y/o M admitted on 07/02/17 for Low Saturation/ Emphysematous Cystitis, Sepsis, CHF. Chief Complaint: [] Interval history: Mr. Lopez is a 82 year old Male, [place] resident with CHF, with very poor ejection fraction, bph , with h/o urinary retention in the past, presents to the ER today from the [place] for shortness of breath and low grade temperature. The patient has no other complaints, According to the ER p hysician who spoke to the the patients noted taht the patient was briefly short of breath this afternoon and was therefore sent here for further evaluation. The patient denies any other complaints. Triage note also mentions difficulty in keeping osat at acceptable levels. the patient had a low grade temp on presentation, his CXR was neg for pna or chf , pts vitals stable, and stats > 90 on room air. patient labs as follows The patient X ray chest had questionable nodule CT chest abdomen and pelvis was ordered which showed significant for gall stones , possible cholecysititis? The patient also had enlarged bladder with thickened bladder wall, air inside the bladder and air inside the bladder wall. The patient case was reviewed by Dr Bautista who did not feel that patient is a surgical candidate. The patient also does not wish surgical treatment for his gall stones, he is asymptomatic from gall stones. Given that he has leucocytosis, and gas in the bladder wall, he was admitted to the hospital for further management. His BNP is elevated and more than before, his renal function was also not at baseline. July 03 Patient seen examined, feels at baseline, no acute overnight issues. I reviewed the case with Dr Díaz who advised to continue treating the bladder infection with IV antibiotics, no need for surgery, will need outpatient follow up with urology. Pt is already on flomax. Will likely need skilled nursing spangler Patient is DNR, I reviewed skilled nursing goals of care with the patient, he remains DNR, however not wanting comfort or palliative care. Aware that his prognosis overall is poor. Daughter at bedside is also aware of same. July 04 Patient seen examined, no acute overnight issues, home bp meds resumed, bp on the lower end pt sitting in chair, comfortable, denies any issues daughter by bed side Plan to get PICC today will need 14 days of antibiotics, given that he has severe complicated UTI, will treat with IV therapy monitor closely bp changes, resume oral diuretics once bp is more stable July 05 Pt seen examined, no acute overnight events, tolerating po well no issues picc placed on iv rocephin will give for atleast 14 days plan to resume diuretics and see how he tolerates, if able to tolerate meds, will plan for d/c in AM Pertinent ROS: Denies headache, dizziness Denies chest pain, palpitations Denies cough or shortness of breath Denies abdominal pain, nausea or vomiting. - Constitutional Vitals: Vital Signs Temp Pulse Resp BP Pulse Ox 98.1 F 73 22 83/57 98 07/05/17 12:00 07/05/17 12:00 07/05/17 12:00 07/05/17 12:00 07/05/17 12:00 Period Temp Pulse Resp BP Sys/Culp Pulse Ox Last 24 Hr 98.1 F-99.2 F 73 16-22 83-101/57-71 93-99 Intake and Output 07/05/17 07/05/17 07/05/17 05:59 13:59 21:59 Intake Total 240 / 240 Output Total 700 / 700 850 / 850 Balance -700 / -700 -610 / -610 Intake & Output: Intake & Output 07/05/17 07/05/17 07/05/17 05:59 13:59 21:59 Intake Total 240 / 240 Output Total 700 / 700 850 / 850 Balance -700 / -700 -610 / -610 Intake: Oral 240 / 240 Output: Urine Catheter Amount 700 / 700 850 / 850 Other: Meal Breakfast Percent of Meal Consumed 100% Feeding Ability Assist with Tray Set Up Exam: Constitutional; Afebrile, cooperative, alert, not in distress. Eyes- No icterus, , No periorbital swelling Ears- Ext ear normal, hearing normal to conversation. Neck- Midline trachea, supple Respiratory system: Air Entry equal on both sides, No crackles or wheezing, no rhonchi. CVS- Rate rhythm regular, S1,S2 heard, no gallop, no rub. Abdomen- Soft nontender abdomen, no organomegaly, no tenderness, no guarding or rigidity, [employer]ER[employer] TECH[employer]ICIAN- AOOx3, moving all extremities, no gross focal deficit noted. Medical - PN: Obj Da - Labs CBC & Chem 7: 07/05/17 03:45 07/05/17 03:45 Labs: Abnormal Lab Results 07/05/17 07/05/17 07/04/17 03:45 03:45 03:55 RBC 3.47 L Hgb 10.8 L Hct 33.0 L POC Hct RDW 18.3 H Gran % Lymph % (Auto) Eos % (Auto) 7.6 H Gran # Lymph # (Auto) 1.3 L Chloride 94 L Carbon Dioxide 31 H POC Total CO2 POC BUN BUN 25 H 25 H Creatinine 1.4 H 1.5 H POC Creatinine Glucose 153 H POC Glucose Calcium Total Bilirubin Direct Bilirubin 0.4 H 0.5 H AST ALT 77 H 102 H NT-Pro-B Natriuret Pep Albumin 2.9 L 3.0 L Globulin 3.8 H 3.8 H Albumin/Globulin Ratio 0.8 L 0.8 L 07/04/17 07/03/17 07/03/17 03:55 04:20 04:20 RBC 3.57 L 3.60 L Hgb 11.1 L 11.3 L Hct 33.9 L 34.4 L POC Hct RDW 18.5 H 19.1 H Gran % 81.6 H Lymph % (Auto) 12.6 L 9.0 L Eos % (Auto) Gran # 8.6 H Lymph # (Auto) 1.2 L 0.9 L Chloride 95 L Carbon Dioxide 31 H POC Total CO2 POC BUN BUN 25 H Creatinine 1.6 H POC Creatinine Glucose 192 H POC Glucose Calcium Total Bilirubin 1.1 H Direct Bilirubin 0.5 H AST 57 H ALT 143 H NT-Pro-B Natriuret Pep Albumin 3.0 L Globulin 4.1 H Albumin/Globulin Ratio 0.7 L 07/02/17 07/02/17 17:25 16:47 RBC Hgb Hct POC Hct 37.0 L RDW Gran % Lymph % (Auto) Eos % (Auto) Gran # Lymph # (Auto) Chloride 92 L Carbon Dioxide 32 H POC Total CO2 33 H POC BUN 30 H BUN 26 H Creatinine 1.8 H POC Creatinine 1.8 H Glucose 174 H POC Glucose 155 H Calcium 10.5 H Total Bilirubin Direct Bilirubin AST 82 H ALT 191 H NT-Pro-B Natriuret Pep 03977.0 H Albumin 3.1 L Globulin 4.6 H Albumin/Globulin Ratio 0.7 L Meds: Medications Acetaminophen (Tylenol) 650 mg PO Q6HP PRN PRN Reason: PAIN/FEVER > 101 Hydrocodone Bitart/Acetaminophen (Vona 5/325mg) 1 tab PO Q4HP PRN PRN Reason: Pain Last Admin: 07/04/17 20:49 Dose: 1 tab Bisoprolol Fumarate (Zebeta) 2.5 mg PO DAILY [facility] Last Admin: 07/05/17 08:58 Dose: 2.5 mg Ceftriaxone Sodium (Rocephin) 2 gm IV Q24H [facility] [place] Last Admin: 07/05/17 08:59 Dose: 2 gm Dextrose (Dextrose 50%) 0 ml IV UD PRN PRN Reason: Hypoglycemia Diagnostic Test (Pha) (Accu-Chek) 1 each FS ACHS [facility] [place] Last Admin: 07/05/17 12:19 Dose: 1 each Docusate Sodium (Colace) 100 mg PO BID [facility] [place] Last Admin: 07/05/17 08:58 Dose: 100 mg Enoxaparin Sodium (Lovenox) 40 mg SQ DAILY [facility] [place] Last Admin: 07/05/17 09:16 Dose: 40 mg Glucose (Insta-Glucose) 15 gm PO PRN PRN PRN Reason: Hypoglycemia Heparin Sodium (Porcine) (Heparin Flush) 2 ml IV Q12 [facility] [place] Last Admin: 07/05/17 08:59 Dose: 2 ml Insulin Human Lispro (Humalog) 0 unit SQ [facility] PRN Reason: Protocol Last Admin: 07/05/17 12:22 Dose: 2 unit Magnesium Hydroxide (Milk Of Magnesia) 30 ml PO DAILYP PRN PRN Reason: Constipation Ondansetron HCl (Zofran) 4 mg IV Q4HP PRN PRN Reason: Nausea And Vomiting Potassium Chloride (Kdur) 20 meq PO BIDCC [facility] [place] Last Admin: 07/05/17 08:58 Dose: 20 meq Simvastatin (Zocor) 10 mg PO HS [facility] [place] Last Admin: 07/04/17 20:49 Dose: 10 mg Sodium Chloride (Saline Flush) 10 ml IV Q12 [facility] Last Admin: 07/05/17 09:16 Dose: 10 ml Sodium Chloride (Saline Flush) 10 ml IV UD PRN PRN Reason: FLUSH Tamsulosin HCl (Flomax) 0.4 mg PO HS [facility] Last Admin: 07/04/17 20:49 Dose: 0.4 mg Torsemide (Demadex) 20 mg PO DAILY [facility] Last Admin: 07/05/17 08:58 Dose: 20 mg Medical - PN: A/P - Time Spent With Patient Total time spent is greater than 50% in coordination of care (as documented) at patient's floor/unit and/or counseling patient: - Narrative A/P Narrative: A/P Complicated emphysematous Cystitits cholelithiasis/ Cholecystitis Sepsis Congestive Heart failiure Hypokalemia Acute Kidney Injury HTN HLD CAD Plan Continue to monitor on tele, given tenuous cardiovascular status. continue on rocephin and flagyl for now. clinically improving. pt not keen on Gall bladder surgeyr, and does not seem to be a candidate either. Patient needs skilled nursing spangler it seems, will need outpatient follow up with urology, case reviewed with edenilson gonzalez, advised just antibiotics for now. creat is stable Resume home meds for htn, hld as appropriate. diuretic resumed, monitor bp closely anticipate d/c to snf in am if bp holds steady DVT hep sq Diet Cardiac OT/PT/ST DNR status reviewed with the patient. Medical - PN: Qual - VTE Deep Vein Thrombosis/Pulmonary Embolism Present on Admission: No
[2017-07-05] MEDS: SIMVASTATIN 10 MG TABLET PO SCH (20:27)
[2017-07-05] MEDS: TAMSULOSIN 0.4 MG CAPSULE PO SCH (20:28)
[2017-07-06 05:48] LABS: Basophils # (Auto) 0.1 K/mcL (0.0-0.3); Basophils % (Auto) 1.1 % (0.0-2.0); Eosinophils # (Auto) 0.6 K/mcL (0.0-0.7); Eosinophils % (Auto) 8.9 % (0.0-7.0); Granulocytes % (Auto) 67.6 % (38.0-78.0); Lymphocytes # (Auto) 1.1 K/mcL (1.5-4.8); Lymphocytes % (Auto) 17.5 % (15.5-49.0); Mean Cell Volume 94.6 fL (80.0-100.0); Mean Corpuscular HGB Conc 33.5 g/dL (31.0-36.0); Mean Corpuscular Hemoglobin 31.7 pg (26.0-34.0); Monocytes # (Auto) 0.3 K/mcL (0.1-0.9); Monocytes % (Auto) 4.9 % (1.0-12.0); Platelet Count 237 K/mcL (140-440); RBC 3.42 M/mcL (4.50-5.90); Red Cell Distribution Width 18.6 % (11.5-14.5)
[2017-07-06 06:07] LABS: ALT/SGPT 62 U/l (0-40); Albumin 2.7 gm/dL (3.2-5.2); Albumin/Globulin Ratio 0.7 (1.0-2.3); Alkaline Phosphatase 94 U/L (39-117); Bilirubin,Direct 0.3 mg/dL (0.0-0.3); Blood Urea Nitrogen 24 mg/dl (8-23); Gamma Glutamyl Transpeptidase 57 U/L (8-61); Magnesium 1.9 mg/dL (1.6-2.5); Uric Acid 5.5 mg/dL (2.5-8.0)
[2017-07-06] MEDS ORDERED: 0.9 % SODIUM CHLORIDE 250 ML IV ONE ×2 (09:11→15:20)
[2017-07-06] MEDS: INSULIN LISPRO 1 UNIT/0.01 ML UNIT SQ SCH ×4 (09:15→20:39)
[2017-07-06] MEDS: TORSEMIDE 10 MG TABLET PO SCH (09:16)
[2017-07-06] MEDS: DOCUSATE SODIUM 100 MG CAPSULE PO SCH ×2 (09:16→20:39)
[2017-07-06] MEDS: POTASSIUM CHLORIDE 10 MEQ TABLET PO SCH ×2 (09:16→17:40)
[2017-07-06] MEDS: cefTRIAXone 2 GM VIAL IV SCH (09:17)
[2017-07-06] MEDS: ENOXAPARIN 40 MG/0.4 ML SYRINGE SQ SCH (09:17)
[2017-07-06] MEDS: 0.9 % SODIUM CHLORIDE 10 ML SYRINGE IV SCH ×2 (09:18→20:39)
[2017-07-06] MEDS: BISOPROLOL 5 MG TABLET PO SCH (09:18)
--- NOTE | 2017-07-06 15:22 | Internal Med Progress Note ---
Medical - PN: Subj Patient information: Note initiated : 07/06/17 at 3:21 pm Service Date, if different from initiated Date: [] Patient: Alcides Lopez 82 y/o M admitted on 07/02/17 for Low Saturation/ Emphysematous Cystitis, Sepsis, CHF. Chief Complaint: [] Interval history: Mr. Lopez is a 82 year old Male, [place] resident with CHF, with very poor ejection fraction, bph , with h/o urinary retention in the past, presents to the ER today from the [place] for shortness of breath and low grade temperature. The patient has no other complaints, According to the ER p hysician who spoke to the the patients noted taht the patient was briefly short of breath this afternoon and was therefore sent here for further evaluation. The patient denies any other complaints. Triage note also mentions difficulty in keeping osat at acceptable levels. the patient had a low grade temp on presentation, his CXR was neg for pna or chf , pts vitals stable, and stats > 90 on room air. patient labs as follows The patient X ray chest had questionable nodule CT chest abdomen and pelvis was ordered which showed significant for gall stones , possible cholecysititis? The patient also had enlarged bladder with thickened bladder wall, air inside the bladder and air inside the bladder wall. The patient case was reviewed by Dr Bautista who did not feel that patient is a surgical candidate. The patient also does not wish surgical treatment for his gall stones, he is asymptomatic from gall stones. Given that he has leucocytosis, and gas in the bladder wall, he was admitted to the hospital for further management. His BNP is elevated and more than before, his renal function was also not at baseline. July 03 Patient seen examined, feels at baseline, no acute overnight issues. I reviewed the case with Dr Díaz who advised to continue treating the bladder infection with IV antibiotics, no need for surgery, will need outpatient follow up with urology. Pt is already on flomax. Will likely need fdc spangler Patient is DNR, I reviewed fdc goals of care with the patient, he remains DNR, however not wanting comfort or palliative care. Aware that his prognosis overall is poor. Daughter at bedside is also aware of same. July 04 Patient seen examined, no acute overnight issues, home bp meds resumed, bp on the lower end pt sitting in chair, comfortable, denies any issues daughter by bed side Plan to get PICC today will need 14 days of antibiotics, given that he has severe complicated UTI, will treat with IV therapy monitor closely bp changes, resume oral diuretics once bp is more stable July 05 Pt seen examined, no acute overnight events, tolerating po well no issues picc placed on iv rocephin will give for atleast 14 days plan to resume diuretics and see how he tolerates, if able to tolerate meds, will plan for d/c in AM Jul 06 patient seen examined no acute overnight issues no complaints bp on the lower end this AM, pt asymptomatic, systolic bp was 70 Will hold off on d/c today Give some fluid and reassess Pt expected to have low bp but this seems a bit lower than normal consider cutting down on torsemide dose to 10mg po if bp persits to be low. Pertinent ROS: Denies headache, dizziness Denies chest pain, palpitations Denies cough or shortness of breath Denies abdominal pain, nausea or vomiting. - Constitutional Vitals: Vital Signs Temp Pulse Resp BP Pulse Ox 98.2 F 74 18 85/58 98 07/06/17 12:00 07/06/17 12:00 07/06/17 12:00 07/06/17 12:00 07/06/17 12:00 Period Temp Pulse Resp BP Sys/Culp Pulse Ox Last 24 Hr 97.6 F-98.7 F 74-80 16-20 70-94/57-66 95-100 Intake and Output 07/06/17 07/06/17 07/06/17 05:59 13:59 21:59 Intake Total 480 / 480 Output Total 1225 / 1225 1850 / 1850 Balance -1225 / -1225 -1370 / -1370 Intake & Output: Intake & Output 07/06/17 07/06/17 07/06/17 05:59 13:59 21:59 Intake Total 480 / 480 Output Total 1225 / 1225 1850 / 1850 Balance -1225 / -1225 -1370 / -1370 Intake: Oral 480 / 480 Output: Urine Catheter Amount 1225 / 1225 1850 / 1850 Other: Meal Lunch Percent of Meal Consumed 75% Feeding Ability Assist with Tray Set Up # Bowel Movements 1 Exam: Constitutional; Afebrile, cooperative, alert, not in distress. Eyes- No icterus, , No periorbital swelling Ears- Ext ear normal, hearing normal to conversation. Neck- Midline trachea, supple Respiratory system: Air Entry equal on both sides, No crackles or wheezing, no rhonchi. CVS- Rate rhythm regular, S1,S2 heard, no gallop, no rub. 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 Medical - PN: Obj Da - Labs CBC & Chem 7: 07/06/17 03:40 07/06/17 03:40 Labs: Abnormal Lab Results 07/06/17 07/06/17 07/05/17 03:40 03:40 03:45 RBC 3.42 L Hgb 10.8 L Hct 32.3 L RDW 18.6 H Lymph % (Auto) Eos % (Auto) 8.9 H Lymph # (Auto) 1.1 L Chloride 95 L 94 L Carbon Dioxide 31 H BUN 24 H 25 H Creatinine 1.4 H 1.4 H Glucose Direct Bilirubin 0.4 H ALT 62 H 77 H Albumin 2.7 L 2.9 L Globulin 3.9 H 3.8 H Albumin/Globulin Ratio 0.7 L 0.8 L 07/05/17 07/04/17 07/04/17 03:45 03:55 03:55 RBC 3.47 L 3.57 L Hgb 10.8 L 11.1 L Hct 33.0 L 33.9 L RDW 18.3 H 18.5 H Lymph % (Auto) 12.6 L Eos % (Auto) 7.6 H Lymph # (Auto) 1.3 L 1.2 L Chloride Carbon Dioxide BUN 25 H Creatinine 1.5 H Glucose 153 H Direct Bilirubin 0.5 H ALT 102 H Albumin 3.0 L Globulin 3.8 H Albumin/Globulin Ratio 0.8 L Meds: Medications Acetaminophen (Tylenol) 650 mg PO Q6HP PRN PRN Reason: PAIN/FEVER > 101 Last Admin: 07/05/17 20:27 Dose: 650 mg Hydrocodone Bitart/Acetaminophen ([place] 5/325mg) 1 tab PO Q4HP PRN PRN Reason: Pain Last Admin: 07/04/17 20:49 Dose: 1 tab Bisoprolol Fumarate (Zebeta) 2.5 mg PO DAILY [facility] Last Admin: 07/06/17 09:18 Dose: 2.5 mg Ceftriaxone Sodium (Rocephin) 2 gm IV Q24H [facility] Last Admin: 07/06/17 09:17 Dose: 2 gm Dextrose (Dextrose 50%) 0 ml IV UD PRN PRN Reason: Hypoglycemia Diagnostic Test (Pha) (Accu-Chek) 1 each FS ACHS [facility] Last Admin: 07/06/17 13:16 Dose: 1 each Docusate Sodium (Colace) 100 mg PO BID [facility] Last Admin: 07/06/17 09:16 Dose: 100 mg Enoxaparin Sodium (Lovenox) 40 mg SQ DAILY [facility] Last Admin: 07/06/17 09:17 Dose: 40 mg Glucose (Insta-Glucose) 15 gm PO PRN PRN PRN Reason: Hypoglycemia Heparin Sodium (Porcine) (Heparin Flush) 2 ml IV Q12 [facility] Last Admin: 07/06/17 09:17 Dose: 2 ml Sodium Chloride (Sodium Chloride 0.9%) 250 mls @ 0 mls/hr IV BOLUS ONE PRN Reason: Wide Open Stop: 07/06/17 15:21 Insulin Human Lispro (Humalog) 0 unit SQ [facility] PRN Reason: Protocol Last Admin: 07/06/17 13:16 Dose: 2 unit Magnesium Hydroxide (Milk Of Magnesia) 30 ml PO DAILYP PRN PRN Reason: Constipation Ondansetron HCl (Zofran) 4 mg IV Q4HP PRN PRN Reason: Nausea And Vomiting Potassium Chloride (Kdur) 20 meq PO BIDCC [facility] Last Admin: 07/06/17 09:16 Dose: 20 meq Simvastatin (Zocor) 10 mg PO HS [facility] Last Admin: 07/05/17 20:27 Dose: 10 mg Sodium Chloride (Saline Flush) 10 ml IV Q12 [facility] Last Admin: 07/06/17 09:18 Dose: 10 ml Sodium Chloride (Saline Flush) 10 ml IV UD PRN PRN Reason: FLUSH Tamsulosin HCl (Flomax) 0.4 mg PO HS [facility] Last Admin: 07/05/17 20:28 Dose: 0.4 mg Torsemide (Demadex) 20 mg PO DAILY [facility] Last Admin: 07/06/17 09:16 Dose: 20 mg Medical - PN: A/P - Time Spent With Patient Total time spent is greater than 50% in coordination of care (as documented) at patient's floor/unit and/or counseling patient: - Narrative A/P Narrative: A/P Complicated emphysematous Cystitits cholelithiasis/ Cholecystitis Sepsis Congestive Heart failiure Hypokalemia Acute Kidney Injury, back to baseline HTN HLD CAD Plan IV saline for low bp, monitor his state closely, tends to get fluid overload quite quickly. Continue to monitor on tele, given tenuous cardiovascular status. continue on Rocephin and flagyl for now. clinically stable pt not keen on Gall bladder surgeyr, and does not seem to be a candidate either. Patient needs fdc spangler it seems, will need outpatient follow up with urology, case reviewed with urology, advised just antibiotics for now. creat is stable Home meds resumed and bp dropped will monitor closely for now consider cutting back on dose of torsemide if bp remains low. DVT hep sq Diet Cardiac OT/PT/ST DNR status Medical - PN: Qual - VTE Deep Vein Thrombosis/Pulmonary Embolism Present on Admission: No
[2017-07-06] MEDS: TAMSULOSIN 0.4 MG CAPSULE PO SCH (20:39)
[2017-07-06] MEDS: SIMVASTATIN 10 MG TABLET PO SCH (20:39)
[2017-07-07 04:44] LABS: Basophils # (Auto) 0.1 K/mcL (0.0-0.3); Basophils % (Auto) 1.3 % (0.0-2.0); Eosinophils # (Auto) 0.5 K/mcL (0.0-0.7); Eosinophils % (Auto) 7.3 % (0.0-7.0); Granulocytes % (Auto) 67.3 % (38.0-78.0); Lymphocytes # (Auto) 1.3 K/mcL (1.5-4.8); Lymphocytes % (Auto) 18.6 % (15.5-49.0); Mean Cell Volume 92.9 fL (80.0-100.0); Mean Corpuscular HGB Conc 32.8 g/dL (31.0-36.0); Mean Corpuscular Hemoglobin 30.5 pg (26.0-34.0); Monocytes # (Auto) 0.4 K/mcL (0.1-0.9); Monocytes % (Auto) 5.5 % (1.0-12.0); Platelet Count 270 K/mcL (140-440); RBC 3.99 M/mcL (4.50-5.90); Red Cell Distribution Width 17.9 % (11.5-14.5)
[2017-07-07 05:03] LABS: ALT/SGPT 58 U/l (0-40); Albumin 3.1 gm/dL (3.2-5.2); Albumin/Globulin Ratio 0.7 (1.0-2.3); Alkaline Phosphatase 114 U/L (39-117); Bilirubin,Direct 0.3 mg/dL (0.0-0.3); Blood Urea Nitrogen 27 mg/dl (8-23); Gamma Glutamyl Transpeptidase 68 U/L (8-61); Magnesium 1.8 mg/dL (1.6-2.5); Uric Acid 6.2 mg/dL (2.5-8.0)
[2017-07-07] MEDS: INSULIN LISPRO 1 UNIT/0.01 ML UNIT SQ SCH ×4 (08:53→20:51)
[2017-07-07] MEDS: DOCUSATE SODIUM 100 MG CAPSULE PO SCH ×2 (08:54→21:35)
[2017-07-07] MEDS: ENOXAPARIN 40 MG/0.4 ML SYRINGE SQ SCH (08:54)
[2017-07-07] MEDS: 0.9 % SODIUM CHLORIDE 10 ML SYRINGE IV SCH ×3 (09:00→21:35)
[2017-07-07] MEDS: POTASSIUM CHLORIDE 10 MEQ TABLET PO SCH ×2 (09:06→18:51)
[2017-07-07] MEDS: TORSEMIDE 10 MG TABLET PO SCH (09:07)
[2017-07-07] MEDS: cefTRIAXone 2 GM VIAL IV SCH (10:00)
--- NOTE | 2017-07-07 10:02 | Internal Med Progress Note ---
Medical - PN: Subj Patient information: Note initiated : 07/07/17 at 10:00 am Service Date, if different from initiated Date: [] Patient: Alcides Lopez 82 y/o M admitted on 07/02/17 for Low Saturation/ Emphysematous Cystitis, Sepsis, CHF. Chief Complaint: [] Interval history: Mr. Lopez is a 82 year old Male, [place] resident with CHF, with very poor ejection fraction, bph , with h/o urinary retention in the past, presents to the ER today from the [place] for shortness of breath and low grade temperature. The patient has no other complaints, According to the ER p hysician who spoke to the the patients noted taht the patient was briefly short of breath this afternoon and was therefore sent here for further evaluation. The patient denies any other complaints. Triage note also mentions difficulty in keeping osat at acceptable levels. the patient had a low grade temp on presentation, his CXR was neg for pna or chf , pts vitals stable, and stats > 90 on room air. patient labs as follows The patient X ray chest had questionable nodule CT chest abdomen and pelvis was ordered which showed significant for gall stones , possible cholecysititis? The patient also had enlarged bladder with thickened bladder wall, air inside the bladder and air inside the bladder wall. The patient case was reviewed by Dr Bautista who did not feel that patient is a surgical candidate. The patient also does not wish surgical treatment for his gall stones, he is asymptomatic from gall stones. Given that he has leucocytosis, and gas in the bladder wall, he was admitted to the hospital for further management. His BNP is elevated and more than before, his renal function was also not at baseline. July 03 Patient seen examined, feels at baseline, no acute overnight issues. I reviewed the case with Dr Díaz who advised to continue treating the bladder infection with IV antibiotics, no need for surgery, will need outpatient follow up with urology. Pt is already on flomax. Will likely need adjunct faculty for medical terminology spangler Patient is DNR, I reviewed half-way goals of care with the patient, he remains DNR, however not wanting comfort or palliative care. Aware that his prognosis overall is poor. Daughter at bedside is also aware of same. July 04 Patient seen examined, no acute overnight issues, home bp meds resumed, bp on the lower end pt sitting in chair, comfortable, denies any issues daughter by bed side Plan to get PICC today will need 14 days of antibiotics, given that he has severe complicated UTI, will treat with IV therapy monitor closely bp changes, resume oral diuretics once bp is more stable July 05 Pt seen examined, no acute overnight events, tolerating po well no issues picc placed on iv rocephin will give for atleast 14 days plan to resume diuretics and see how he tolerates, if able to tolerate meds, will plan for d/c in AM Jul 06 patient seen examined no acute overnight issues no complaints bp on the lower end this AM, pt asymptomatic, systolic bp was 70 Will hold off on d/c today Give some fluid and reassess Pt expected to have low bp but this seems a bit lower than normal consider cutting down on torsemide dose to 10mg po if bp persits to be low. July 07 patient seen examined, sitting comfortably in chair, daughter by bed side patient still hypotensive but asymptomatic, cut back on the dose of torsemide to 10mg once bp remains stable and consistently > 90 systolic, will plan for D/c patient denies any acute concerns, feels good. Pertinent ROS: Denies headache, dizziness Denies chest pain, palpitations Denies cough or shortness of breath Denies abdominal pain, nausea or vomiting. - Constitutional Vitals: Vital Signs Temp Pulse Resp BP Pulse Ox 98.2 F 76 18 90/62 96 07/07/17 08:00 07/07/17 04:00 07/07/17 08:00 07/07/17 08:00 07/07/17 08:00 Period Temp Pulse Resp BP Sys/Culp Pulse Ox Last 24 Hr 98.2 F-99.2 F 72-78 18-20 82-97/55-68 96-100 Intake and Output 07/06/17 07/07/17 07/07/17 21:59 05:59 13:59 Intake Total 420 / 420 120 / 120 Output Total 1550 / 1550 1050 / 1050 Balance -1130 / -1130 -930 / -930 Weight 122 lb Intake & Output: Intake & Output 07/06/17 07/07/17 07/07/17 21:59 05:59 13:59 Intake Total 420 / 420 120 / 120 Output Total 1550 / 1550 1050 / 1050 Balance -1130 / -1130 -930 / -930 Weight 122 lb Intake: Oral 420 / 420 120 / 120 Output: Urine Catheter Amount 1550 / 1550 1050 / 1050 Other: # Bowel Movements 1 Exam: Constitutional; Afebrile, cooperative, alert, not in distress. Eyes- No icterus, , No periorbital swelling Ears- Ext ear normal, hearing normal to conversation. Neck- Midline trachea, supple Respiratory system: Air Entry equal on both sides, No crackles or wheezing, no rhonchi. CVS- Rate rhythm irregular, S1,S2 heard, no gallop, no rub. 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 Medical - PN: Obj Da - Labs CBC & Chem 7: 07/07/17 03:30 07/07/17 03:30 Labs: Abnormal Lab Results 07/07/17 07/07/17 07/06/17 03:30 03:30 03:40 RBC 3.99 L Hgb 12.1 L Hct 37.0 L RDW 17.9 H Eos % (Auto) 7.3 H Lymph # (Auto) 1.3 L Sodium 131 L Chloride 90 L 95 L Carbon Dioxide BUN 27 H 24 H Creatinine 1.4 H Glucose 114 H Direct Bilirubin GGT 68 H ALT 58 H 62 H Albumin 3.1 L 2.7 L Globulin 4.4 H 3.9 H Albumin/Globulin Ratio 0.7 L 0.7 L 07/06/17 07/05/17 07/05/17 03:40 03:45 03:45 RBC 3.42 L 3.47 L Hgb 10.8 L 10.8 L Hct 32.3 L 33.0 L RDW 18.6 H 18.3 H Eos % (Auto) 8.9 H 7.6 H Lymph # (Auto) 1.1 L 1.3 L Sodium Chloride 94 L Carbon Dioxide 31 H BUN 25 H Creatinine 1.4 H Glucose Direct Bilirubin 0.4 H GGT ALT 77 H Albumin 2.9 L Globulin 3.8 H Albumin/Globulin Ratio 0.8 L Meds: Medications Acetaminophen (Tylenol) 650 mg PO Q6HP PRN PRN Reason: PAIN/FEVER > 101 Last Admin: 07/05/17 20:27 Dose: 650 mg Hydrocodone Bitart/Acetaminophen ([place] 5/325mg) 1 tab PO Q4HP PRN PRN Reason: Pain Last Admin: 07/04/17 20:49 Dose: 1 tab Bisoprolol Fumarate (Zebeta) 2.5 mg PO DAILY [facility] Last Admin: 07/06/17 09:18 Dose: 2.5 mg Ceftriaxone Sodium (Rocephin) 2 gm IV Q24H [facility] Last Admin: 07/06/17 09:17 Dose: 2 gm Dextrose (Dextrose 50%) 0 ml IV UD PRN PRN Reason: Hypoglycemia Diagnostic Test (Pha) (Accu-Chek) 1 each FS ACHS [facility] Last Admin: 07/07/17 08:53 Dose: 1 each Docusate Sodium (Colace) 100 mg PO BID [facility] Last Admin: 07/07/17 08:54 Dose: 100 mg Enoxaparin Sodium (Lovenox) 40 mg SQ DAILY [facility] Last Admin: 07/07/17 08:54 Dose: 40 mg Glucose (Insta-Glucose) 15 gm PO PRN PRN PRN Reason: Hypoglycemia Heparin Sodium (Porcine) (Heparin Flush) 2 ml IV Q12 [facility] Last Admin: 07/07/17 08:53 Dose: 2 ml Insulin Human Lispro (Humalog) 0 unit SQ [facility] PRN Reason: Protocol Last Admin: 07/07/17 08:53 Dose: Not Given Magnesium Hydroxide (Milk Of Magnesia) 30 ml PO DAILYP PRN PRN Reason: Constipation Ondansetron HCl (Zofran) 4 mg IV Q4HP PRN PRN Reason: Nausea And Vomiting Potassium Chloride (Kdur) 20 meq PO BIDCC [facility] Last Admin: 07/07/17 09:06 Dose: 20 meq Simvastatin (Zocor) 10 mg PO HS [facility] Last Admin: 07/06/17 20:39 Dose: 10 mg Sodium Chloride (Saline Flush) 10 ml IV Q12 [facility] Last Admin: 07/06/17 20:39 Dose: 10 ml Sodium Chloride (Saline Flush) 10 ml IV UD PRN PRN Reason: FLUSH Tamsulosin HCl (Flomax) 0.4 mg PO HS [facility] Last Admin: 07/06/17 20:39 Dose: 0.4 mg Torsemide (Demadex) 10 mg PO DAILY [facility] Last Admin: 07/07/17 09:07 Dose: 10 mg Medical - PN: A/P - Time Spent With Patient Total time spent is greater than 50% in coordination of care (as documented) at patient's floor/unit and/or counseling patient: - Narrative A/P Narrative: A/P Complicated emphysematous Cystitits cholelithiasis/ Cholecystitis Sepsis Congestive Heart failiure Hypokalemia Acute Kidney Injury, back to baseline HTN HLD CAD Plan BP stable, cut back dose of torsemide from 20mg to 10mg qd montior bp. Continue to monitor on tele, given tenuous cardiovascular status. continue on Rocephin and flagyl for now. clinically stable pt not keen on Gall bladder surgery, and does not seem to be a candidate either. Patient needs adjunct faculty for medical terminology spangler it seems, will need outpatient follow up with urology, case reviewed with urology, advised just antibiotics for now. creat is stable Home meds resumed, will monitor closely for now DVT hep sq Diet Cardiac OT/PT/ST DNR status Medical - PN: Qual - VTE Deep Vein Thrombosis/Pulmonary Embolism Present on Admission: No
[2017-07-07] MEDS: BISOPROLOL 5 MG TABLET PO SCH (11:54)
[2017-07-07] MEDS: SIMVASTATIN 10 MG TABLET PO SCH (21:34)
[2017-07-07] MEDS: TAMSULOSIN 0.4 MG CAPSULE PO SCH (21:34)
[2017-07-08 06:04] LABS: Basophils # (Auto) 0.1 K/mcL (0.0-0.3); Basophils % (Auto) 1.4 % (0.0-2.0); Eosinophils # (Auto) 0.7 K/mcL (0.0-0.7); Eosinophils % (Auto) 10.7 % (0.0-7.0); Granulocytes % (Auto) 61.4 % (38.0-78.0); Lymphocytes # (Auto) 1.2 K/mcL (1.5-4.8); Lymphocytes % (Auto) 18.4 % (15.5-49.0); Mean Cell Volume 93.4 fL (80.0-100.0); Mean Corpuscular HGB Conc 32.7 g/dL (31.0-36.0); Mean Corpuscular Hemoglobin 30.6 pg (26.0-34.0); Monocytes # (Auto) 0.5 K/mcL (0.1-0.9); Monocytes % (Auto) 8.1 % (1.0-12.0); Platelet Count 270 K/mcL (140-440); RBC 3.79 M/mcL (4.50-5.90); Red Cell Distribution Width 17.6 % (11.5-14.5)
[2017-07-08 06:28] LABS: ALT/SGPT 46 U/l (0-40); Albumin 3.1 gm/dL (3.2-5.2); Albumin/Globulin Ratio 0.7 (1.0-2.3); Alkaline Phosphatase 116 U/L (39-117); Bilirubin,Direct 0.2 mg/dL (0.0-0.3); Blood Urea Nitrogen 27 mg/dl (8-23); Gamma Glutamyl Transpeptidase 67 U/L (8-61); Uric Acid 6.8 mg/dL (2.5-8.0)
[2017-07-08] MEDS: INSULIN LISPRO 1 UNIT/0.01 ML UNIT SQ SCH ×4 (07:30→20:55)
[2017-07-08] MEDS: ENOXAPARIN 40 MG/0.4 ML SYRINGE SQ SCH (08:56)
[2017-07-08] MEDS: DOCUSATE SODIUM 100 MG CAPSULE PO SCH ×2 (08:57→20:36)
[2017-07-08] MEDS: TORSEMIDE 10 MG TABLET PO SCH (09:00)
[2017-07-08] MEDS: 0.9 % SODIUM CHLORIDE 10 ML SYRINGE IV SCH ×2 (09:00→20:37)
[2017-07-08] MEDS: POTASSIUM CHLORIDE 10 MEQ TABLET PO SCH ×2 (09:00→17:07)
[2017-07-08] MEDS: BISOPROLOL 5 MG TABLET PO SCH (09:00)
[2017-07-08] MEDS: cefTRIAXone 2 GM VIAL IV SCH (09:35)
--- NOTE | 2017-07-08 17:15 | Internal Med Progress Note ---
Medical - PN: Subj Patient information: Note initiated : 07/08/17 at 5:13 pm Service Date, if different from initiated Date: [] Patient: Alcides Lopez 82 y/o M admitted on 07/02/17 for Low Saturation/ Emphysematous Cystitis, Sepsis, CHF. Chief Complaint: [] Interval history: Mr. Lopez is a 82 year old Male, [place] resident with CHF, with very poor ejection fraction, bph , with h/o urinary retention in the past, presents to the [place] today from the [place] for shortness of breath and low grade temperature. The patient has no other complaints, According to the ER p hysician who spoke to the the patients noted taht the patient was briefly short of breath this afternoon and was therefore sent here for further evaluation. The patient denies any other complaints. Triage note also mentions difficulty in keeping osat at acceptable levels. the patient had a low grade temp on presentation, his CXR was neg for pna or chf , pts vitals stable, and stats > 90 on room air. patient labs as follows The patient X ray chest had questionable nodule CT chest abdomen and pelvis was ordered which showed significant for gall stones , possible cholecysititis? The patient also had enlarged bladder with thickened bladder wall, air inside the bladder and air inside the bladder wall. The patient case was reviewed by Dr Bautista who did not feel that patient is a surgical candidate. The patient also does not wish surgical treatment for his gall stones, he is asymptomatic from gall stones. Given that he has leucocytosis, and gas in the bladder wall, he was admitted to the hospital for further management. His BNP is elevated and more than before, his renal function was also not at baseline. July 03 Patient seen examined, feels at baseline, no acute overnight issues. I reviewed the case with Dr Díaz who advised to continue treating the bladder infection with IV antibiotics, no need for surgery, will need outpatient follow up with urology. Pt is already on flomax. Will likely need senior care spangler Patient is DNR, I reviewed senior care goals of care with the patient, he remains DNR, however not wanting comfort or palliative care. Aware that his prognosis overall is poor. Daughter at bedside is also aware of same. July 04 Patient seen examined, no acute overnight issues, home bp meds resumed, bp on the lower end pt sitting in chair, comfortable, denies any issues daughter by bed side Plan to get PICC today will need 14 days of antibiotics, given that he has severe complicated UTI, will treat with IV therapy monitor closely bp changes, resume oral diuretics once bp is more stable July 05 Pt seen examined, no acute overnight events, tolerating po well no issues picc placed on iv rocephin will give for atleast 14 days plan to resume diuretics and see how he tolerates, if able to tolerate meds, will plan for d/c in AM Jul 06 patient seen examined no acute overnight issues no complaints bp on the lower end this AM, pt asymptomatic, systolic bp was 70 Will hold off on d/c today Give some fluid and reassess Pt expected to have low bp but this seems a bit lower than normal consider cutting down on torsemide dose to 10mg po if bp persits to be low. July 07 patient seen examined, sitting comfortably in chair, daughter by bed side patient still hypotensive but asymptomatic, cut back on the dose of torsemide to 10mg once bp remains stable and consistently > 90 systolic, will plan for D/c patient denies any acute concerns, feels good. July 08 Patient seen examined was tired and fatigued after PT but no other complaints, no cp sob or any other concerns. His bp still is soft, I think he will run low chronically, but still given lows can be in 80s, will cut back dose of bisoprolol to 1.25 mg AM consider d/c to snf if patient remains stable. Pertinent ROS: Denies headache, dizziness Denies chest pain, palpitations Denies cough or shortness of breath Denies abdominal pain, nausea or vomiting. - Constitutional Vitals: Vital Signs Temp Pulse Resp BP Pulse Ox 97.4 F 76 20 82/59 99 07/08/17 16:00 07/07/17 04:00 07/08/17 16:00 07/08/17 16:00 07/08/17 16:00 Period Temp Pulse Resp BP Sys/Culp Pulse Ox Last 24 Hr 97.1 F-98.9 F 16-20 82-97/59-66 96-99 Intake and Output 07/08/17 07/08/17 07/08/17 05:59 13:59 21:59 Intake Total 120 / 120 980 / 980 Output Total 650 / 650 800 / 800 Balance -650 / -650 120 / 120 180 / 180 Intake & Output: Intake & Output 07/08/17 07/08/17 07/08/17 05:59 13:59 21:59 Intake Total 120 / 120 980 / 980 Output Total 650 / 650 800 / 800 Balance -650 / -650 120 / 120 180 / 180 Intake: Oral 120 / 120 980 / 980 Output: Urine Catheter Amount 650 / 650 800 / 800 Other: Meal Breakfast Lunch Percent of Meal Consumed 100% 100% Feeding Ability Independent Independent # Bowel Movements 1 Exam: Constitutional; Afebrile, cooperative, alert, not in distress. Eyes- No icterus, , No periorbital swelling Ears- Ext ear normal, hearing normal to conversation. Neck- Midline trachea, supple Respiratory system: Air Entry equal on both sides, No crackles or wheezing, no rhonchi. CVS- Rate rhythm irregular, S1,S2 heard, no gallop, no rub. 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 Medical - PN: Obj Da - Labs CBC & Chem 7: 07/08/17 03:48 07/08/17 03:48 Labs: Abnormal Lab Results 07/08/17 07/08/17 07/07/17 03:48 03:48 03:30 RBC 3.79 L Hgb 11.6 L Hct 35.4 L RDW 17.6 H Eos % (Auto) 10.7 H Lymph # (Auto) 1.2 L Sodium 131 L Chloride 95 L 90 L BUN 27 H 27 H Creatinine 1.4 H Glucose 108 H 114 H GGT 67 H 68 H ALT 46 H 58 H Albumin 3.1 L 3.1 L Globulin 4.4 H 4.4 H Albumin/Globulin Ratio 0.7 L 0.7 L 07/07/17 07/06/17 07/06/17 03:30 03:40 03:40 RBC 3.99 L 3.42 L Hgb 12.1 L 10.8 L Hct 37.0 L 32.3 L RDW 17.9 H 18.6 H Eos % (Auto) 7.3 H 8.9 H Lymph # (Auto) 1.3 L 1.1 L Sodium Chloride 95 L BUN 24 H Creatinine 1.4 H Glucose GGT ALT 62 H Albumin 2.7 L Globulin 3.9 H Albumin/Globulin Ratio 0.7 L Meds: Medications Acetaminophen (Tylenol) 650 mg PO Q6HP PRN PRN Reason: PAIN/FEVER > 101 Last Admin: 07/05/17 20:27 Dose: 650 mg Hydrocodone Bitart/Acetaminophen ([place] 5/325mg) 1 tab PO Q4HP PRN PRN Reason: Pain Last Admin: 07/04/17 20:49 Dose: 1 tab Bisoprolol Fumarate (Zebeta) 2.5 mg PO DAILY [facility] Last Admin: 07/08/17 09:00 Dose: 2.5 mg Ceftriaxone Sodium (Rocephin) 2 gm IV Q24H [facility] Last Admin: 07/08/17 09:35 Dose: 2 gm Dextrose (Dextrose 50%) 0 ml IV UD PRN PRN Reason: Hypoglycemia Diagnostic Test (Pha) (Accu-Chek) 1 each FS ACHS [facility] Last Admin: 07/08/17 16:54 Dose: 1 each Docusate Sodium (Colace) 100 mg PO BID [facility] Last Admin: 07/08/17 08:57 Dose: 100 mg Enoxaparin Sodium (Lovenox) 40 mg SQ DAILY [facility] Last Admin: 07/08/17 08:56 Dose: 40 mg Glucose (Insta-Glucose) 15 gm PO PRN PRN PRN Reason: Hypoglycemia Heparin Sodium (Porcine) (Heparin Flush) 2 ml IV Q12 [facility] Last Admin: 07/08/17 08:56 Dose: 2 ml Insulin Human Lispro (Humalog) 0 unit SQ [facility] PRN Reason: Protocol Last Admin: 07/08/17 16:55 Dose: 1 unit Magnesium Hydroxide (Milk Of Magnesia) 30 ml PO DAILYP PRN PRN Reason: Constipation Ondansetron HCl (Zofran) 4 mg IV Q4HP PRN PRN Reason: Nausea And Vomiting Potassium Chloride (Kdur) 20 meq PO BIDCC [facility] Last Admin: 07/08/17 17:07 Dose: 20 meq Simvastatin (Zocor) 10 mg PO HS [facility] Last Admin: 07/07/17 21:34 Dose: 10 mg Sodium Chloride (Saline Flush) 10 ml IV Q12 [facility] Last Admin: 07/08/17 09:00 Dose: 10 ml Sodium Chloride (Saline Flush) 10 ml IV UD PRN PRN Reason: FLUSH Tamsulosin HCl (Flomax) 0.4 mg PO HS [facility] Last Admin: 07/07/17 21:34 Dose: 0.4 mg Torsemide (Demadex) 10 mg PO DAILY [facility] Last Admin: 07/08/17 09:00 Dose: 10 mg Medical - PN: A/P - Time Spent With Patient Total time spent is greater than 50% in coordination of care (as documented) at patient's floor/unit and/or counseling patient: - Narrative A/P Narrative: A/P Complicated emphysematous Cystitits cholelithiasis/ Cholecystitis Sepsis Congestive Heart failiure Hypokalemia Acute Kidney Injury, back to baseline HTN HLD CAD Plan BP stable, dose of torsemide changed from 20mg to 10mg qd . Given soft bp also cut back dose of bisoprolol to 1.25mg qd Continue to monitor on tele, given tenuous cardiovascular status. continue on Rocephin and flagyl for now. clinically stable pt not keen on Gall bladder surgery, and does not seem to be a candidate either. Patient needs senior care spangler it seems, will need outpatient follow up with urology, case reviewed with urology, advised just antibiotics for now. creat is stable Home meds resumed, will monitor closely for now DVT hep sq Diet Cardiac OT/PT/ST DNR status Medical - PN: Qual - VTE Deep Vein Thrombosis/Pulmonary Embolism Present on Admission: No
[2017-07-08] MEDS: SIMVASTATIN 10 MG TABLET PO SCH (20:36)
[2017-07-08] MEDS: TAMSULOSIN 0.4 MG CAPSULE PO SCH (20:36)
[2017-07-08] MEDS: HYDROcodone/APAP 5/325MG TABLET PO PRN (20:36)
[2017-07-09 05:32] LABS: Basophils # (Auto) 0.1 K/mcL (0.0-0.3); Basophils % (Auto) 1.2 % (0.0-2.0); Eosinophils # (Auto) 0.7 K/mcL (0.0-0.7); Eosinophils % (Auto) 10.5 % (0.0-7.0); Lymphocytes # (Auto) 1.3 K/mcL (1.5-4.8); Mean Cell Volume 94.7 fL (80.0-100.0); Mean Corpuscular HGB Conc 33.2 g/dL (31.0-36.0); Mean Corpuscular Hemoglobin 31.5 pg (26.0-34.0); Monocytes # (Auto) 0.5 K/mcL (0.1-0.9); Monocytes % (Auto) 7.3 % (1.0-12.0); Platelet Count 267 K/mcL (140-440); RBC 3.46 M/mcL (4.50-5.90); Red Cell Distribution Width 17.4 % (11.5-14.5)
[2017-07-09 06:08] LABS: ALT/SGPT 42 U/l (0-40); Albumin 2.9 gm/dL (3.2-5.2); Albumin/Globulin Ratio 0.7 (1.0-2.3); Alkaline Phosphatase 115 U/L (39-117); Bilirubin,Direct 0.2 mg/dL (0.0-0.3); Blood Urea Nitrogen 23 mg/dl (8-23); Gamma Glutamyl Transpeptidase 68 U/L (8-61); Uric Acid 6.7 mg/dL (2.5-8.0)
[2017-07-09] MEDS: 0.9 % SODIUM CHLORIDE 10 ML SYRINGE IV SCH (08:00)
[2017-07-09] MEDS: INSULIN LISPRO 1 UNIT/0.01 ML UNIT SQ SCH ×2 (08:15→11:28)
[2017-07-09] MEDS ORDERED: BISOPROLOL 5 MG TABLET PO SCH (09:00)
[2017-07-09] MEDS: DOCUSATE SODIUM 100 MG CAPSULE PO SCH (09:31)
[2017-07-09] MEDS: TORSEMIDE 10 MG TABLET PO SCH (09:32)
[2017-07-09] MEDS: POTASSIUM CHLORIDE 10 MEQ TABLET PO SCH (09:33)
[2017-07-09] MEDS: ENOXAPARIN 40 MG/0.4 ML SYRINGE SQ SCH (09:33)
[2017-07-09] MEDS: cefTRIAXone 2 GM VIAL IV SCH (09:34)
--- NOTE | 2017-07-09 09:47 | Discharge Summary ---
Medical - DS: Prov Patient information: Note initiated : 07/09/17 at 9:41 am Service Date, if different from initiated Date: [] Patient: Alcides Lopez 82 y/o M admitted on 07/02/17 for Low Saturation/ Emphysematous Cystitis, Sepsis, CHF. Chief Complaint: [] Date of admission: 07/02/17 22:31 Discharge date: 07/09/17 Primary care physician: Brian Francisco Admitting clinician: Meri Martinez Consults: 07/02/17 20:00 Consult to Physician [CONS] Stat Comment: Consulting Provider: Meri Martinez Reason For Exam: Physician to Consult Discharging clinician: Meri Martinez Medical - DS: Meds - Discharge Medications Prescriptions: Bisoprolol Fumarate 1.25 mg PO DAILY #30 tab cefTRIAXone NA/DEXTROSE,ISO [Ceftriaxone 2 gm Piggyback] 2 gm IV DAILY #8 froz.piggy Potassium Chloride [Klor-Con 10] 20 meq PO BIDCC #60 tablet.er Torsemide [Demadex] 10 mg PO DAILY #30 tab Active and Home Medications: Home Medications cholecalciferol (vitamin D3) 5,000 unit capsule 5,000 unit PO QDAY cap [History Confirmed 06/24/17 Last Taken Unknown] Aspirin [Jeanine Chewable Aspirin] 81 mg PO DAILY 02/24/17 [History Confirmed Last Taken Unknown] Potassium Chloride [Klor-Con 10] 20 meq PO TIDCC 02/24/17 [History Confirmed 03/12 Last Taken Unknown] Torsemide [Demadex] 20 mg PO DAILY 04/08/17 [History Confirmed 06/24/17 Last Taken Unknown] pravastatin 20 mg tablet 20 mg PO QHS #30 tab 04/23/17 [Rx Confirmed 07/03/17 Last Taken Unknown] sitagliptin 100 mg tablet 100 mg PO QDAY #30 tab 05/01/17 [Rx Confirmed Last Taken Unknown] furosemide 20 mg tablet 20 mg PO DAILY #90 tab 05/02/17 [Rx Confirmed 07/03/17 Last Taken Unknown] tamsulosin 0.4 mg capsule 0.4 mg PO HS #90 cap 05/15/17 [Rx Confirmed 07/03/17 Last Taken Unknown] Bisoprolol Fumarate 2.5 mg PO DAILY 07/03/17 [History Confirmed 07/03/17 Last Taken Unknown] Carvedilol [Coreg] 3.125 mg PO HS 07/03/17 [History Confirmed 07/03/17 Last Taken Unknown] Ciprofloxacin [Cipro] 500 mg PO BID 07/03/17 [History Confirmed 07/03/17 Last Taken Unknown] Medical - DS: Hosp Hospital course: Mr. Lopez is a 82 year old Male, [place] resident with CHF, with very poor ejection fraction, bph , with h/o urinary retention in the past, presents to the ER today from the [place] for shortness of breath and low grade temperature. The patient has no other complaints, According to the ER p noéan who spoke to the the patients noted taht the patient was briefly short of breath this afternoon and was therefore sent here for further evaluation. The patient denies any other complaints. The patient had a low grade temp on presentation, his CXR was neg for pna or chf, pts vitals stable, and stats > 90 on room air. The patient X ray chest had questionable nodule, CT chest abdomen and pelvis was ordered which showed significant for gall stones, possible cholecysititis? The patient also had enlarged bladder with thickened bladder wall, air inside the bladder and air inside the bladder wall. The patient case was reviewed by Dr Bautista who did not feel that patient is a surgical candidate. The patient also does not wish surgical treatment for his gall stones, he is asymptomatic from gall stones. [facility] Emphysematous Cysititis: Treated aggresively with IV antibiotics, initially on zosyn then on rocephin, total of 14 days of IV antibiotics planned, PICC line placed. He will need 8 more days of IV rocephin at the [place], Was was reviewed by Dr Sierra, no surgical intervention planned at this time. The patient will need to follow up with Dr Sierra in the clinic as outpatient. He will be discharged with a spangler, it seems he will need spangler for longterm. He is also on flomax The patients urine culture and blood cultures have been negative growth in the hospital GB disease: Patient asymptomatic from same, he is not a surgical candiate and does not wish for surgery. Congestive heart failure: Stable, but patient has had low blood pressures. This is a chr issue for him given his very poor ejection fraction. It seems his doses of diuretics and bp meds were recently changed by his P D Driver Dr Paredes. the patient is asymptomatic from his low blood pressure. He usually runs in sysotlic 80-100, and diastolic 50-60 without any symptoms. He was monitored on these low bp during the hospital stay and he seem to tolerate them well, and this did not impair his particpation in physical therapy. I have cut his dose of torsemide from 20mg to 10mg His dose of bisprolol is cut to 1.25mg once daily. His Medications can be uptitrated should he become volume overloaded or hypertensive. The rest of the stay in the hospital was uneventful. For detailed day to day changes see notes below. July 03 Patient seen examined, feels at baseline, no acute overnight issues. I reviewed the case with Dr Díaz who advised to continue treating the bladder infection with IV antibiotics, no need for surgery, will need outpatient follow up with urology. Pt is already on flomax. Will likely need longterm spangler Patient is DNR, I reviewed longterm goals of care with the patient, he remains DNR, however not wanting comfort or palliative care. Aware that his prognosis overall is poor. Daughter at bedside is also aware of same. July 04 Patient seen examined, no acute overnight issues, home bp meds resumed, bp on the lower end pt sitting in chair, comfortable, denies any issues daughter by bed side Plan to get PICC today will need 14 days of antibiotics, given that he has severe complicated UTI, will treat with IV therapy monitor closely bp changes, resume oral diuretics once bp is more stable July 05 Pt seen examined, no acute overnight events, tolerating po well no issues picc placed on iv rocephin will give for atleast 14 days plan to resume diuretics and see how he tolerates, if able to tolerate meds, will plan for d/c in AM Jul 06 patient seen examined no acute overnight issues no complaints bp on the lower end this AM, pt asymptomatic, systolic bp was 70 Will hold off on d/c today Give some fluid and reassess Pt expected to have low bp but this seems a bit lower than normal consider cutting down on torsemide dose to 10mg po if bp persits to be low. July 07 patient seen examined, sitting comfortably in chair, daughter by bed side patient still hypotensive but asymptomatic, cut back on the dose of torsemide to 10mg once bp remains stable and consistently > 90 systolic, will plan for D/c patient denies any acute concerns, feels good. July 08 Patient seen examined was tired and fatigued after PT but no other complaints, no cp sob or any other concerns. His bp still is soft, I think he will run low chronically, but still given lows can be in 80s, will cut back dose of bisoprolol to 1.25 mg AM consider d/c to snf if patient remains stable. Discharge diagnosis: severe emphysematous cystitis, CHF, - Time Spent with Patient Total time spent providing and/or coordinating discharge services: Greater than 30 minutes Medical - DS: Exam - Constitutional Vitals: Vital Signs Temp Pulse Resp BP Pulse Ox 07/09/17 08:09 97.9 F 78 16 96/63 98 07/09/17 07:34 98 07/09/17 03:54 98.6 F 80 16 86/57 98 07/08/17 23:53 98.4 F 74 16 88/60 97 07/08/17 20:00 98.4 F 81 16 104/71 99 07/08/17 16:00 97.4 F 20 82/59 99 07/08/17 12:00 98.9 F 18 90/62 99 Intake and Output 07/08/17 07/09/17 07/09/17 21:59 05:59 13:59 Intake Total 1340 / 1340 240 / 240 Output Total 800 / 800 1000 / 1000 Balance 540 / 540 -1000 / -1000 240 / 240 Intake: Oral 1340 / 1340 240 / 240 Output: Urine Catheter Amount 800 / 800 1000 / 1000 Other: Meal Dinner Breakfast Percent of Meal Consumed 100% 75% Feeding Ability Independent Independent Weight 120 lb 8 oz Additional comments: Constitutional; Afebrile, cooperative, alert, not in distress. Eyes- No icterus, , No periorbital swelling Ears- Ext ear normal, hearing normal to conversation. Neck- Midline trachea, supple Respiratory system: Air Entry equal on both sides, No crackles or wheezing, no rhonchi. CVS- Rate rhythm irregular, S1,S2 heard, no gallop, no rub. 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 Medical - DS: Data Labs on day of discharge: Labs from last 24 hours 07/09/17 07/09/17 07/09/17 03:35 03:35 03:35 WBC 6.6 RBC 3.46 L Hgb 10.9 L Hct 32.8 L MCV 94.7 MCH 31.5 MCHC 33.2 RDW 17.4 H Plt Count 267 MPV 8.6 Gran % 61.0 Lymph % (Auto) 20.0 [place] % (Auto) 7.3 Eos % (Auto) 10.5 H Baso % (Auto) 1.2 Gran # 4.0 Lymph # (Auto) 1.3 L [place] # (Auto) 0.5 Eos # (Auto) 0.7 Baso # (Auto) 0.1 Sodium 132 L Potassium 4.2 Chloride 95 L Carbon Dioxide 27 Anion Gap 10.0 BUN 23 Creatinine 1.3 H GFR Calculation 51 Glucose 112 H Uric Acid 6.7 Calcium 9.3 Phosphorus 2.5 L Magnesium 2.0 Total Bilirubin 0.5 Direct Bilirubin 0.2 GGT 68 H AST 26 ALT 42 H Alkaline Phosphatase 115 Lactate Dehydrogenase 184 Total Protein 7.3 Albumin 2.9 L Globulin 4.4 H Albumin/Globulin Ratio 0.7 L Triglycerides 54 TSH 4.46 Cortisol AM Sample 6.6 Medical - DS: A/P - Patient/Caregiver Discharge Instructions Activity: as per physical therapy, increase activity as tolerated Diet: Cardiac, Consistent Carbohydrate Additional Instructions: Follow up with Dr Sierra in the clinic in 1 week follow up with PCP in 1-2 weeks PICC line care, as per protocol Pt needs IV rocephin 2gms once dailyi for 8 more days D/C PICC line after last day of antibiotic Patient needs spangler likely for manager terminal, or as per the instructions of Dr Díaz Go to the ER if worsening shortness of breath, chest pain or any other concerning symptom. - Follow up Plan Follow up with: Brian Francisco MD [Primary Care Provider] - Disposition: Xfer SNF Prognosis: Fair Rehab Potential: Fair I certify that the patient requires SNF services: Yes Overall status at discharge: patient is progressing back to baseline Medical - DS: Qual - VTE Deep Vein Thrombosis/Pulmonary Embolism Present on Admission: No
--- NOTE | 2017-07-09 13:27 | XRay Report ---
CLINICAL INFORMATION: Assess PICC line placement TECHNIQUE: AP portable upright chest x-ray COMPARISON: Previous examination dated 07/04/2017 FINDINGS: Right-sided PICC line with its tip in the proximal superior vena cava. This is just distal to the junction of the superior vena cava and right subclavian vein. Position is considered satisfactory. No change in left transvenous unipolar pacemaker lead. Lungs are negative. Heart size and vascularity are normal IMPRESSION: Right-sided PICC line in the superior vena cava Interpreted and Authenticated by: Yahir Houston 07/09/17
== END 2017-07-09 13:06 | DRG 872 ==
LOC: ED 16:21 → ICU 22:31
PROVIDERS: ADMIT Internal Medicine; ATTEND Internal Medicine

== ENCOUNTER 2017-08-09 09:14 | Inpatient (IN) ==
[2017-08-09] MEDS ORDERED: 0.9 % SODIUM CHLORIDE 1,000 ML IV ONE ×2 (09:37→13:15)
--- NOTE | 2017-08-09 09:37 | Emergency Department Note ---
Altered Mental Status HPI - General Chief Complaint: Altered Mental Status Stated Complaint: Altered mental status Time Seen by Provider: 08/09/17 09:34 Source: EMS Mode of arrival: EMS Limitations: altered mental status - History of Present Illness HPI Narrative: Patient comes over from [facility] half-way because of some confusion. He is hypotensive with a blood pressure of 87. Has recently been treated for a UTI. He feels thirsty and dry but has no other complaints. - Related Data Home Medications Medication Instructions Recorded Confirmed cholecalciferol (vitamin D3) 5,000 5,000 unit PO QDAY cap 02/13/15 08/09/17 unit capsule Aspirin [Jeanine Chewable Aspirin] 81 mg PO DAILY 02/24/17 08/09/17 Bisacodyl [Dulcolax] 10 mg [place] PRN PRN 08/09/17 08/09/17 Magnesium Hydroxide [Milk of 30 ml PO DAILYP PRN 08/09/17 08/09/17 Magnesia] Mupirocin 2% Nasal Oint [Bactroban 1 gm TYRESE BID 08/09/17 08/09/17 2% Nasal Oint] Tamsulosin HCl [Flomax] 0.4 mg PO HS 08/09/17 08/09/17 Zinc Oxide [Desitin] 57 gm TP BID 08/09/17 08/09/17 Previous Rx's Medication Instructions Recorded pravastatin 20 mg tablet 20 mg PO QHS #30 tab 04/23/17 sitagliptin 100 mg tablet 100 mg PO QDAY #30 tab 05/01/17 Bisoprolol Fumarate 1.25 mg PO DAILY #30 tab 07/09/17 Potassium Chloride [Klor-Con 10] 20 meq PO BIDCC #60 tablet.er 07/09/17 Torsemide [Demadex] 10 mg PO DAILY #30 tab 07/09/17 clindamycin HCl 150 mg capsule 150 mg PO BID 7 Days #14 cap 08/06/17 Allergies Allergy/AdvReac Type Severity Reaction Status Date / Time peanut Allergy Other Verified 08/09/17 09:22 Review of Systems Constitutional: Denies: fever, chills ENT ED: Denies: ear pain, throat pain Cardiovascular: Denies: chest pain Respiratory: Denies: cough Gastrointestinal: Denies: abdominal pain, nausea Genitourinary: Denies: dysuria Musculoskeletal: Denies: back pain Integumentary: Denies: rash Past Medical History - Past Medical History [facility] Narrative: Medical History Urinary retention (Acute) Encounter for removal of sutures (Acute) Heart failure (Acute) CHF (congestive heart failure), NYHA class IV (Acute) CHF exacerbation (Acute) Pneumonia, aspiration (Acute) CHF (congestive heart failure) (Acute) Sepsis (Acute) Deficient knowledge of congestive heart failure (CHF) (Acute) UTI (urinary tract infection) (Acute) Emphysematous cystitis (Acute) Cholelithiasis (Acute) Acute urinary retention (Acute) CHF (congestive heart failure) (Chronic) Detrusor dysfunction (Chronic) Actinic keratosis (Chronic) Basal cell carcinoma of skin (Chronic) Supraventricular tachycardia (Chronic) Retinal detachment (Chronic) Psoriasis (Chronic) Orthostasis (Chronic) Myocardial infarct (Chronic) Memory loss (Chronic) Ischemic cardiomyopathy (Chronic) Inguinal hernia (Chronic) Hypertension (Chronic) Hyperlipidemia (Chronic) Heart disease (Chronic) Diabetes (Chronic) Pain (Chronic 09/24/15) Past Surgical History History of implantable cardioverter-defibrillator (ICD) placement (Chronic) Family History father Malignant neoplasm of prostate Father Secondary malignant neoplasm of respiratory tract Mother Myocardial Infarction, Onset Age: 68 Medical history: Reports: CHF, coronary artery disease, diabetes, hyperlipidemia , myocardial infarction, other (ICD, SVT, rretinal detachment, ischemic cardiomyopathy, urine retention, psoriasis) Surgical history ED: Reports: angioplasty/stent, pacemaker/AICD - Social History smoking status: Never smoker Alcohol use: Reports: Occasionally Drug use: Reports: none Physical Exam Limitations: altered mental status General appearance: alert Head: atraumatic Eye: Present: normal appearance ENT: mucous membranes dry Neck: Present: normal inspection Chest: Present: normal inspection Respiratory: Present: normal lung sounds bilaterally Cardiovascular: Present: regular rate, normal rhythm, normal heart sounds Abdominal: Present: soft. Absent: distention, tenderness Extremities: Absent: pedal edema, pretibial edema Neurological: Present: alert Psychiatric: Present: normal affect, normal mood Skin: Present: warm, dry, intact Course Vital Signs Temperature 96.9 F L 08/09/17 09:15 Pulse Rate 40 L 08/09/17 09:15 Respiratory Rate 10 L 08/09/17 09:15 Blood Pressure 88/48 08/09/17 09:15 Pulse Oximetry (%) 98 08/09/17 09:15 Temperature 96.9 F L 08/09/17 09:15 Pulse Rate 43 L 08/09/17 11:11 Respiratory Rate 22 08/09/17 11:01 Blood Pressure 91/52 08/09/17 11:11 Pulse Oximetry (%) 100 08/09/17 11:11 Altered Mental Status - MDM Narrative Medical decision making narrative: Patient is quite hyperkalemic and will be admitted to the ICU. Usual hyperkalemic protocol will be started. - Lab Data Lab results reviewed: Yes I reviewed the patient's lab results. Result diagrams: 08/09/17 09:37 08/09/17 09:37 Lab Results 08/09/17 08/09/17 08/09/17 Range/Units 09:37 09:37 09:37 WBC 17.3 H (4.5-11.0) K/mcL RBC 3.68 L (4.50-5.90) M/mcL Hgb 11.5 L (13.5-16.5) g/dL Hct 34.9 L (41.0-55.0) % POC Hct (41.0-55.0) % MCV 94.9 (80.0-100.0) fL MCH 31.2 (26.0-34.0) pg MCHC 32.9 (31.0-36.0) g/dL RDW 17.5 H (11.5-14.5) % Plt Count 146 (140-440) K/mcL MPV 9.8 (7.4-10.4) fL Gran % 92.2 H (38.0-78.0) % Lymph % (Auto) 3.4 L (15.5-49.0) % [place] % (Auto) 4.4 (1.0-12.0) % Eos % (Auto) 0 (0.0-7.0) % Baso % (Auto) 0 (0.0-2.0) % Gran # 16.0 H (1.8-8.0) K/mcL Lymph # (Auto) 0.6 L (1.5-4.8) K/mcL [place] # (Auto) 0.8 (0.1-0.9) K/mcL Eos # (Auto) 0 (0.0-0.7) K/mcL Baso # (Auto) 0 (0.0-0.3) K/mcL POC Sodium (133-145) mmol/L Sodium 127 L (133-145) mmol/L POC Potassium (3.3-5.1) mmol/L Potassium 8.3 H* (3.3-5.1) mmol/L POC Chloride (96-108) mmol/L Chloride 90 L (96-108) mmol/L Carbon Dioxide 12 L (22-30) mmol/L POC Total CO2 (22-30) mmol/L Anion Gap 25.0 H (8-16) POC BUN (8-23) mg/dl BUN 105 H* (8-23) mg/dl Creatinine 3.9 H (0.7-1.2) mg/dl POC Creatinine (0.7-1.2) mg/dl GFR Calculation 14 Glucose 132 H (70-105) mg/dL POC Glucose (70-105) mg/dL Calcium 10.5 H (8.6-10.4) mg/dl POC WB Ioniz Calcium (1.16-1.32) mmol/L Total Bilirubin 1.2 H (0.0-1.0) mg/dL AST 853 H (0-37) U/l ALT 795 H (0-40) U/l Alkaline Phosphatase 110 (39-117) U/L Troponin T 0.05 H* (0-0.03) ng/ml NT-Pro-B Natriuret Pep 97428.0 H (0-450) pg/ml Total Protein 7.4 (5.9-8.4) gm/dL Albumin 3.7 (3.2-5.2) gm/dL Globulin 3.7 (2.2-3.7) gm/dL Albumin/Globulin Ratio 1.0 (1.0-2.3) Urine Color Urine Appearance Urine pH (5.0-9.0) Ur Specific [place] (1.000-1.035) Urine Protein (NEG) mg/dL Urine Glucose (UA) (NEG) mg/dL Urine Ketones (NEG) mg/dL Urine Occult Blood (<0.03) mg/dL Urine Nitrate (NEG) Urine Bilirubin (NEG) mg/dL Urine Urobilinogen (NEG) mg/dL Ur Leukocyte Esterase (NEG) /uL Ur Culture Indicated? 08/09/17 08/09/17 Range/Units 10:23 11:45 WBC (4.5-11.0) K/mcL RBC (4.50-5.90) M/mcL Hgb (13.5-16.5) g/dL Hct (41.0-55.0) % POC Hct 36.0 L (41.0-55.0) % MCV (80.0-100.0) fL MCH (26.0-34.0) pg MCHC (31.0-36.0) g/dL RDW (11.5-14.5) % Plt Count (140-440) K/mcL MPV (7.4-10.4) fL Gran % (38.0-78.0) % Lymph % (Auto) (15.5-49.0) % [place] % (Auto) (1.0-12.0) % Eos % (Auto) (0.0-7.0) % Baso % (Auto) (0.0-2.0) % Gran # (1.8-8.0) K/mcL Lymph # (Auto) (1.5-4.8) K/mcL [place] # (Auto) (0.1-0.9) K/mcL Eos # (Auto) (0.0-0.7) K/mcL Baso # (Auto) (0.0-0.3) K/mcL POC Sodium 128 L (133-145) mmol/L Sodium (133-145) mmol/L POC Potassium 7.9 H* (3.3-5.1) mmol/L Potassium (3.3-5.1) mmol/L POC Chloride 102 (96-108) mmol/L Chloride (96-108) mmol/L Carbon Dioxide (22-30) mmol/L POC Total CO2 14 L (22-30) mmol/L Anion Gap (8-16) POC BUN 101 H* (8-23) mg/dl BUN (8-23) mg/dl Creatinine (0.7-1.2) mg/dl POC Creatinine 3.9 H (0.7-1.2) mg/dl GFR Calculation Glucose (70-105) mg/dL POC Glucose 122 H (70-105) mg/dL Calcium (8.6-10.4) mg/dl POC WB Ioniz Calcium 1.17 (1.16-1.32) mmol/L Total Bilirubin (0.0-1.0) mg/dL AST (0-37) U/l ALT (0-40) U/l Alkaline Phosphatase (39-117) U/L Troponin T (0-0.03) ng/ml NT-Pro-B Natriuret Pep (0-450) pg/ml Total Protein (5.9-8.4) gm/dL Albumin (3.2-5.2) gm/dL Globulin (2.2-3.7) gm/dL Albumin/Globulin Ratio (1.0-2.3) Urine Color Yellow Urine Appearance Clear Urine pH 5.0 (5.0-9.0) Ur Specific [place] 1.012 (1.000-1.035) Urine Protein Neg (NEG) mg/dL Urine Glucose (UA) Negative (NEG) mg/dL Urine Ketones Neg (NEG) mg/dL Urine Occult Blood Neg (<0.03) mg/dL Urine Nitrate Neg (NEG) Urine Bilirubin Neg (NEG) mg/dL Urine Urobilinogen Neg (NEG) mg/dL Ur Leukocyte Esterase Neg (NEG) /uL Ur Culture Indicated? No - Radiology Data Radiology results reviewed: Yes I reviewed the patient's radiology results. Disposition Pt seen by PATROL LADY/PA only: No Clinical Impression: Hyperkalemia Disposition: Xfer As Inpt ([facility]) Condition: Fair Referrals: Brian Francisco MD [Primary Care Provider] - Time of Disposition: 12:29
[2017-08-09] MEDS ORDERED: LIDOCAINE JEL 2% 1 TUBE 30GM TOPICAL ONE (09:58)
[2017-08-09 10:30] LABS: Basophils # (Auto) 0 K/mcL (0.0-0.3); Basophils % (Auto) 0 % (0.0-2.0); Eosinophils # (Auto) 0 K/mcL (0.0-0.7); Eosinophils % (Auto) 0 % (0.0-7.0); Granulocytes % (Auto) 92.2 % (38.0-78.0); Lymphocytes # (Auto) 0.6 K/mcL (1.5-4.8); Lymphocytes % (Auto) 3.4 % (15.5-49.0); Mean Cell Volume 94.9 fL (80.0-100.0); Mean Corpuscular HGB Conc 32.9 g/dL (31.0-36.0); Mean Corpuscular Hemoglobin 31.2 pg (26.0-34.0); Monocytes # (Auto) 0.8 K/mcL (0.1-0.9); Monocytes % (Auto) 4.4 % (1.0-12.0); Platelet Count 146 K/mcL (140-440); RBC 3.68 M/mcL (4.50-5.90); Red Cell Distribution Width 17.5 % (11.5-14.5)
[2017-08-09 10:54] LABS: Appearance,Urine CLEAR; Bilirubin,Urine NEG (NEG); Color,Urine YELLOW; Glucose,Urine (UA) NEGATIVE (NEG); Leukocyte Esterase,Urine NEG /uL (NEG); Nitrate,Urine NEG (NEG); Protein,Urine NEG (NEG); Specific Gravity,Urine 1.012 (1.000-1.035); Urine Blood NEG mg/dL (<0.03); Urobilinogen,Urine NEG (NEG)
--- NOTE | 2017-08-09 11:00 | XRay Report ---
CLINICAL INFORMATION: Cough COMPARISON: 07/26/2017. FINDINGS: Defibrillator in stable satisfactory position. Moderate cardiomegaly is unchanged. There is mild distention of the the upper lobe pulmonary vasculature and a few Nba B lines in the lateral bases. No infiltrates - lungs otherwise clear. No effusions. IMPRESSION: Mild CHF Interpreted and Authenticated by: Yahir Bauer 08/09/17
[2017-08-09 11:01] LABS: Albumin 3.7 gm/dL (3.2-5.2); Alkaline Phosphatase 110 U/L (39-117); Blood Urea Nitrogen 105 mg/dl (8-23)
[2017-08-09 11:17] LABS: ALT/SGPT 795 U/l (0-40)
[2017-08-09] MEDS ORDERED: SODIUM POLYSTYRENE SULFONATE 15 GM/60 ML SUSPENSION PO ONE (12:24)
[2017-08-09] MEDS ORDERED: CALCIUM CHLORIDE 1,000 MG/10 ML SYRINGE IV ONE (12:24)
[2017-08-09] MEDS ORDERED: INSULIN REGULAR, HUMAN 1 UNIT/0.01 ML UNIT IV ONE (12:24)
[2017-08-09] MEDS ORDERED: FUROSEMIDE 100 MG/10 ML VIAL IV ONE (12:24)
[2017-08-09] MEDS ORDERED: ALBUTEROL SULFATE 5 MG/ML NEB SOLUTION BOTTLE NEB ONE ×2 (12:28→12:43)
[2017-08-09] MEDS ORDERED: DEXTROSE 50% 50 ML SYRINGE IV ONE (12:29)
[2017-08-09] MEDS ORDERED: SODIUM BICARBONATE ADULT 50 MEQ/50 ML SYRINGE IV ONE ×2 (12:36→13:48)
[2017-08-09] MEDS ORDERED: VANCOMYCIN 1,000 MG in 0.9 % SODIUM CHLORIDE 250 ML IV ONE (12:55)
[2017-08-09] MEDS ORDERED: VANCOMYCIN PER PHARMACY IV ONE (12:55)
[2017-08-09] MEDS ORDERED: PIPERACILLIN SODIUM/TAZOBACTAM 2.25 GM in DEXTROSE 5% IN WATER 50 ML IV SCH (13:00)
--- NOTE | 2017-08-09 13:12 | Internal Med History&Physical ---
Medical - H&P: HPI Patient information: Note initiated : 08/09/17 at 1:10 pm Service Date, if different from initiated Date: [] Patient: Alcides Lopez 82 y/o M admitted on for Altered Mental Status. Chief Complaint: [] History of present illness: Mr. Lopez is a 82 year old Male with recent hospitalization presents ot the ER today from [facility] for confusion as well as shortness of breath The patient is mildy confused and does not seem at his baseline, daughter is at bedside. History from patient, and chart review patient was sob x 2 weeks, worse with activity better with rest, no other symptoms, he has decreased appetite over the last few days, he has not eaten much Beyond this he denies all complaints. He has chf with lvef 15-20, chr low bp, he had emphysematous cystitis and cholecystis on the previous admission. He has been at snf since then In the ER the patient was mildly confused, daughter at bed side, vitals show HR in 40's, EKG shows bradycardia, paced rythym? the pt labs show leucocytosis, bun 105, creat 8.3, creat 3.9 The patient was promptly evaluated and admitted to the ICU for further management. Nephrology consulted and hyperkalemia protocol started. Review of systems: CONSTITUTIONAL: No weight loss, fever, chills, chr weakness and fatigue is present HEENT: Eyes: No visual loss, blurred vision, double vision or yellow sclerae. Ears, Nose, Throat: No hearing loss, sneezing, congestion, runny nose or sore throat. SKIN: No rash or itching. CARDIOVASCULAR: No chest pain, chest pressure or chest discomfort. No palpitations or edema. Does have shortness of breath RESPIRATORY: No cough or sputum. GASTROINTESTINAL: No nausea, vomiting or diarrhea or constipation. No abdominal pain or blood in stools No Melani. Does have decreased appetite GENITOURINARY: Denies Burning on urination. Blood in urine, or foul smelling urine , spangler in place NEUROLOGICAL: No headache, dizziness, syncope, paralysis, tremors, numbness or tingling in the extremities. No change in bowel or bladder control. MUSCULOSKELETAL: No muscle, back pain, joint pain or stiffness. HEMATOLOGIC: No bleeding or bruising. No enlarged nodes PSYCHIATRIC: No depression or anxiety. ENDOCRINOLOGIC: No reports of sweating, cold or heat intolerance. No polyuria or polydipsia. ALLERGIES: No hives, eczema or rhinitis. Skin: No rash, no jaundice, cyanosis or pallor. Medical - H&P: [facility] Medical history: Medical History Urinary retention (Acute) Encounter for removal of sutures (Acute) Heart failure (Acute) CHF (congestive heart failure), NYHA class IV (Acute) CHF exacerbation (Acute) Pneumonia, aspiration (Acute) CHF (congestive heart failure) (Acute) Sepsis (Acute) Deficient knowledge of congestive heart failure (CHF) (Acute) UTI (urinary tract infection) (Acute) Emphysematous cystitis (Acute) Cholelithiasis (Acute) Hyperkalemia (Acute) Acute urinary retention (Acute) CHF (congestive heart failure) (Chronic) Detrusor dysfunction (Chronic) Actinic keratosis (Chronic) Basal cell carcinoma of skin (Chronic) Supraventricular tachycardia (Chronic) Retinal detachment (Chronic) Psoriasis (Chronic) Orthostasis (Chronic) Myocardial infarct (Chronic) Memory loss (Chronic) Ischemic cardiomyopathy (Chronic) Inguinal hernia (Chronic) Hypertension (Chronic) Hyperlipidemia (Chronic) Heart disease (Chronic) Diabetes (Chronic) Pain (Chronic 09/24/15) Surgical history: Past Surgical History History of implantable cardioverter-defibrillator (ICD) placement (Chronic) Pertinent family history: Family History father Malignant neoplasm of prostate Father Secondary malignant neoplasm of respiratory tract Mother Myocardial Infarction, Onset Age: 68 Medical - H&P: Meds Home Medications Medication Instructions Recorded Confirmed Type cholecalciferol (vitamin D3) 5,000 5,000 unit PO QDAY cap 02/13/15 08/09/17 History unit capsule Aspirin [Jeanine Chewable Aspirin] 81 mg PO DAILY 02/24/17 08/09/17 History pravastatin 20 mg tablet 20 mg PO QHS #30 tab 04/23/17 08/09/17 Rx sitagliptin 100 mg tablet 100 mg PO QDAY #30 tab 05/01/17 08/09/17 Rx Bisoprolol Fumarate 1.25 mg PO DAILY #30 tab 07/09/17 08/09/17 Rx Potassium Chloride [Klor-Con 10] 20 meq PO BIDCC #60 tablet.er 07/09/17 Rx Torsemide [Demadex] 10 mg PO DAILY #30 tab 07/09/17 08/09/17 Rx clindamycin HCl 150 mg capsule 150 mg PO BID 7 Days #14 cap 08/06/17 08/09/17 Rx Bisacodyl [Dulcolax] 10 mg [place] PRN PRN 08/09/17 08/09/17 History Magnesium Hydroxide [Milk of 30 ml PO DAILYP PRN 08/09/17 08/09/17 History Magnesia] Mupirocin 2% Nasal Oint [Bactroban 1 gm TYRESE BID 08/09/17 08/09/17 History 2% Nasal Oint] Tamsulosin HCl [Flomax] 0.4 mg PO HS 08/09/17 08/09/17 History Zinc Oxide [Desitin] 57 gm TP BID 08/09/17 08/09/17 History Allergies Allergy/AdvReac Type Severity Reaction Status Date / Time peanut Allergy Other Verified 08/09/17 09:22 Medical - H&P: Exam - Constitutional Vitals: Temp Pulse Resp BP Pulse Ox 96.9 F L 56 L 21 100/58 84 L 08/09/17 09:15 08/09/17 13:06 08/09/17 13:06 08/09/17 13:06 08/09/17 13:06 Exam: GENERAL: The patient is a well-developed, poorly nourished, and in no apparent distress. Is alert and oriented x2. VITAL SIGNS: Reviewed and as noted elsewhere. HEENT: Head is normocephalic and atraumatic. Extraocular muscles are intact. Pupils are equal, round, and reactive to light. Nares appeared normal. Mouth appears any without lesions. Mucous membranes are dry NECK: Normal to inspection, Supple, No lymphadenopathy or thyromegaly. LUNGS: Air entry equal on both sides, no wheezing, crackles or rhonchi noted. No accessory muscles of respiration, appears mildly tachypenic HEART: bradycaridc, Rate regular rhythm, , S1 and S2 heard, no Gallop, S3 or Rub Noted, No Gross murmur heard. ABDOMEN: Soft, nontender, and nondistended. Positive bowel sounds. No hepatosplenomegaly was noted. Foely in place draining yellow urine EXTREMITIES: No cyanosis, clubbing, rash, lesions or edema. NEUROLOGIC: Cranial nerves II through XII are grossly intact. Motor and Sensory System Grossly Intact PSYCHIATRIC: Normal affect, Normal Mood. Appropriate Behavior. SKIN: No ulceration or wounds noted, No jaundice, No rash noted. Medical - H&P: Reslt - Labs CBC & Chem 7: 08/09/17 09:37 08/09/17 09:37 Labs: Short CBC 08/09/17 Range/Units 09:37 WBC 17.3 H (4.5-11.0) K/mcL Hgb 11.5 L (13.5-16.5) g/dL Hct 34.9 L (41.0-55.0) % Plt Count 146 (140-440) K/mcL BMP 08/09/17 09:37 Sodium 127 L Potassium 8.3 H* Chloride 90 L Carbon Dioxide 12 L BUN 105 H* Creatinine 3.9 H Glucose 132 H Calcium 10.5 H Cardiac Enzymes 08/09/17 Range/Units 09:37 Troponin T 0.05 H* (0-0.03) ng/ml Liver Function 08/09/17 Range/Units 09:37 Total Bilirubin 1.2 H (0.0-1.0) mg/dL AST 853 H (0-37) U/l ALT 795 H (0-40) U/l Alkaline Phosphatase 110 (39-117) U/L Albumin 3.7 (3.2-5.2) gm/dL Urine 08/09/17 Range/Units 10:23 Urine Color Yellow Urine Appearance Clear Urine pH 5.0 (5.0-9.0) Ur Specific [place] 1.012 (1.000-1.035) Urine Protein Neg (NEG) mg/dL Urine Glucose (UA) Negative (NEG) mg/dL Medical - H&P: A/P - Narrative A/P Narrative: A/P Acute congestive heart failure Acute renal failure Acute hyperkalemia with EKG changes SIRS h/o BPH abnormal Liver function test lactic acidosis HAGMA/NAGMA Hyponatremia Hypertension HYperlipidemia Plan Admit to MICU, get ABG Stat Nephrology consult medically manage Hyperkalemia, patient will need HD , calcium glcuonaate, kayexalate, albuterol, bicarbonate, dextrose and insulin ordered in ER. closely monitor Potassium Will use bipap if patient gets short of breath secondary to fluid use given that he needs IVF due to renal failure, as well as lactic acidosis get abdominal USG for renal failuire and abnl LFT, consider CT when patient is more stable if needed hold diuretic and bp meds for now. IV vanco and zosyn for now, cxr is neg, ua is clean source of infection? DVT hep DNR code status Patient has very poor prognosis, this has been explained clearly to the patient and his . Social History - Tobacco smoking status: Never smoker - Alcohol alcohol intake frequency: former alcohol drinker
[2017-08-09] MEDS ORDERED: ACETAMINOPHEN 325 MG TABLET PO PRN (13:48)
[2017-08-09] MEDS ORDERED: ONDANSETRON 4 MG/2 ML VIAL IV PRN (13:48)
[2017-08-09] MEDS ORDERED: NALOXONE HCL 0.4 MG/ML VIAL IV PRN (13:48)
[2017-08-09] MEDS ORDERED: HYDROmorphone 2 MG/ML SYRINGE IV PRN (13:48)
[2017-08-09] MEDS ORDERED: VANCOMYCIN PER PHARMACY IV SCH (13:48)
[2017-08-09] MEDS ORDERED: SODIUM BICARBONATE VIAL 150 MEQ in DEXTROSE 5% IN WATER 850 ML IV SCH (14:30)
[2017-08-09] MEDS: PIPERACILLIN SODIUM/TAZOBACTAM 2.25 GM in DEXTROSE 5% IN WATER 50 ML IV SCH ×2 (14:30→23:45)
[2017-08-09] MEDS: 0.9 % SODIUM CHLORIDE 10 ML SYRINGE IV SCH ×2 (14:31→22:54)
--- NOTE | 2017-08-09 14:44 | Nephrology Consult Note ---
History of Present Illness - Reason for Consult Patient information: Note initiated : 08/09/17 at 2:39 pm Service Date, if different from initiated Date: [] Patient: Alcides Lopez 82 y/o M admitted on 08/09/17 for Altered Mental Status. Chief Complaint: [] Consult date: 08/09/17 acute renal failure, hyperkalemia Requesting physician: Meri Martinez - Chief Complaint confusion - History of Present Illness Mr John is a 82 y/o white male with PMH of CHF, ischemic cardiomyopathy who is been admitted for acute renal failure, hyperkalemia Patient was hospitalised a mth ago for emphysematous cystitis and cholecystitis. He was [facility], he was found to have some confusion today and hence sent to ER Patient on questioning c/o having poor appetite for the last 2 weeks, states could not eat or drink any water/fluids. He denies worsening SOB, CP no dizziness, denies edema. He c/o increased frequency of urination but he did not make much urine. He was not on NSAIDS no vomiting, diarrhea denies fever no other complaints labs in the ER showed BUN of 101, s.creat of 3.9 and K of 8.3, this was thought to be an error and repeated, was 7.9, he was seen by hospitalist who ordered medications for hyperkalemia management given concerns of EKG changes Patient is also getting gentle IV hydration and is making some urine with this Review of Systems All systems PM: reviewed and no additional remarkable complaints except as stated (as in HPI) Past History Past medical history: Ischemic cardiomyopathy, EF of 15-20% CHF s/p defib/AICD H/O HTN currently BP is low at baseline h/o DM CAD Past surgical history: s/p AICD Past family history: not pertinent Past social history: currently lives at [facility], has who is at bedside, no current addictions 'He is DNR but wants aggressive medical interventions Medications and Allergies Home Medications Medication Instructions Recorded Confirmed Type cholecalciferol (vitamin D3) 5,000 5,000 unit PO QDAY cap 02/13/15 08/09/17 History unit capsule RX: Aspirin [Jeanine Chewable 81 mg PO DAILY 02/24/17 08/09/17 History Aspirin] pravastatin 20 mg tablet 20 mg PO QHS #30 tab 04/23/17 08/09/17 Rx sitagliptin 100 mg tablet 100 mg PO QDAY #30 tab 05/01/17 08/09/17 Rx RX: Bisoprolol Fumarate 1.25 mg PO DAILY #30 tab 07/09/17 08/09/17 Rx RX: Potassium Chloride [Klor-Con 20 meq PO BIDCC #60 tablet.er 07/09/17 Rx 10] RX: Torsemide [Demadex] 10 mg PO DAILY #30 tab 07/09/17 08/09/17 Rx clindamycin HCl 150 mg capsule 150 mg PO BID 7 Days #14 cap 08/06/17 08/09/17 Rx Bisacodyl [Dulcolax] 10 mg [place] PRN PRN 08/09/17 08/09/17 History Magnesium Hydroxide [Milk of 30 ml PO DAILYP PRN 08/09/17 08/09/17 History Magnesia] Mupirocin 2% Nasal Oint [Bactroban 1 gm TYRESE BID 08/09/17 08/09/17 History 2% Nasal Oint] Tamsulosin HCl [Flomax] 0.4 mg PO HS 08/09/17 08/09/17 History Zinc Oxide [Desitin] 57 gm TP BID 08/09/17 08/09/17 History Allergies Allergy/AdvReac Type Severity Reaction Status Date / Time peanut Allergy Other Verified 08/09/17 09:22 Exam - Vital Signs Vital signs: Temp Pulse Resp BP Pulse Ox 96.9 F L 56 L 21 100/58 84 L 08/09/17 13:40 08/09/17 13:40 08/09/17 13:40 08/09/17 13:40 08/09/17 13:40 - General Appearance General appearance: appears started age, chronically ill, frail EENT: mucous membranes dry Neck: no JVD Respiratory: clear Cardiology: no rub, no edema, normal S1, normal S2 Gastrointestinal: no tenderness, no masses Integumentary: no rash, warm and dry Neurologic: alert and oriented x3 Musculoskeletal: no erythema, no cyanosis Results - Lab Results 08/09/17 09:37 08/09/17 09:37 Most recent lab results Calcium 10.5 mg/dl (8.6-10.4) H 08/09/17 09:37 Assessment and Plan (1) Acute renal failure most recent s.creatinine is 3.9, BUN is 101 UA with no proteinuria and no hematuria no renal US this admission etiology likely pre renal/cardiorenal, ? sepsis leading to ATN Patient has severe metabolic acidosis from CKD and elevated lactate and he has severe hyperkalemia with EKG changes he is making urine though which is reassuring I will change normal saline to bicarb gtt at rate of 50cc/hour Will repeat lasix 40mg IV he is still to get kayexalate as well I will follow his labs q1-2 hr to ensure K is trending down with medical treatment if not may do dialysis however I have discussed with the pt and his at length, he is not a fci dialysis candidate, he does want to have 1-2 treatments to see if he has reversible renal dysfunction . I have also discussed that even 1-2 treatments are very high risk given his hemodyanmics and fact he is so frail from his medical issues, putting him at high risk of dialysis dysequilibirum and even cardiac arrest during treatment I have discussed case with Dr Justin from surgery who is willing to help me with non tunneled dialysis cath placement will obtain renal US ans urinary electrolytes will monitor closely sepsis: ? source, UA with no s/o infection deranged hepatic enzymes: ? etiology, work up per hospitalist mild hyponatremia: related to acute kidney injury, poor po intake, will monitor Thank you for giving me an opportunity to participate in Mr Lopez's medical care, appreciate it Status: Acute (2) Hyperkalemia Status: Acute (3) CHF (congestive heart failure) Status: Chronic Qualifiers: Congestive heart failure type: unspecified congestive heart failure type Congestive heart failure chronicity: acute on chronic Qualified Code(s): I50.9 - Heart failure, unspecified
[2017-08-09] MEDS ORDERED: VANCOMYCIN 1,000 MG in DEXTROSE 5% IN WATER 250 ML IV ONE (15:00)
[2017-08-09 15:13] LABS: Blood Urea Nitrogen 108 mg/dl (8-23)
[2017-08-09] MEDS ORDERED: FUROSEMIDE 40 MG/4 ML VIAL IV ONE (15:13)
[2017-08-09] MEDS ORDERED: 0.9 % SODIUM CHLORIDE 500 ML IV ONE (15:22)
[2017-08-09] MEDS ORDERED: SODIUM BICARBONATE 50 MEQ/50 ML VIAL IV ONE (15:30)
--- NOTE | 2017-08-09 16:25 | Ultrasound Report ---
CLINICAL INFORMATION: Elevated LFTs COMPARISON: Abdominal CT 07/02/2017 FINDINGS: The multiple stones packing the gallbladder. Gallbladder wall is normal thickness - 2 mm. there is no focal tenderness is a four cholecystitis. Common bile duct is normal at 4 mm. Liver is diffusely hyperechoic compatible with fatty change which was also seen on CT. no focal hepatic lesions. The pancreas is normal. The aorta and IVC are unremarkable. Both kidneys are mildly atrophic: the right is 9.3 x 5.3 cm and the left is 9.2 x 5.4 cm. There is mild bilateral hydronephrosis. A 5.4 cm complex cyst is noted in the lateral right kidney which contains calcifications is unchanged from the CT. Minimal ascites is noted IMPRESSION: 1. Cholelithiasis. No sonographic evidence for cholecystitis. Common bile is normal 2. Mild bilateral hydronephrosis 3. Mild bilateral renal atrophy with elevated echotexture bowel medical renal disease. 5.4 cm cyst containing calcifications unchanged from prior CT Interpreted and Authenticated by: Yahir Bauer 08/09/17
[2017-08-09 17:24] LABS: Blood Urea Nitrogen 107 mg/dl (8-23)
[2017-08-09 17:27] LABS: Urea Nitrogen, Urine 503 mg/dL
--- NOTE | 2017-08-09 18:43 | XRay Report ---
CLINICAL INFORMATION: Dialysis port placement COMPARISON: 08/09/2017 FINDINGS: Moderate cardiomegaly with automatic defibrillator lead wires are unremarkable. Right IJ line tip overlies the SVC right brachiocephalic junction no complication from line placement. Lungs are clear. No effusions. IMPRESSION: Right IJ line tip overlies the SVC brachycephalic junction. No, dictation line placement. No acute disease Interpreted and Authenticated by: Yahir Bauer 08/09/17
--- NOTE | 2017-08-09 19:55 | Consultation ---
DATE OF CONSULTATION: 08/09/2017 CHIEF COMPLAINT: The patient is seen in consultation at the request of Dr. Martinez for urgent temporary hemodialysis catheter placement for hypercalcemia. HISTORY OF PRESENT ILLNESS: The patient is an 82-year-old man who was admitted to hospital for confusion and shortness of breath. On admission, the patient is noted to have high creatinine and high potassium at 8.3. Medical measures were started for treatment of his hyperkalemia; however, his potassium has only decreased a small amount. After discussing with patient options for management, the patient wishes to proceed with dialysis. Surgery consult requested for placement of dialysis catheter. PAST MEDICAL HISTORY: Significant for ICD placement, myocardial infarct, ischemic cardiomyopathy with an ejection fraction of 15 to 20 percent, hypertension, diabetes, cholelithiasis, basal cell carcinoma, chronic pain, history of CHF, history of retinal detachment. MEDICATIONS: Medications were reviewed and are as listed in Dr. Martinez's H and P on admission from 08/09/2017. Patient's medications include use of aspirin. The patient's reported that he may be on an additional medication; however, contact with his care facility does not reveal him to be on any other blood thinning medicines other than aspirin. PHYSICAL EXAMINATION: VITAL SIGNS: Pulse 75, respirations 28, blood pressure 112/72, O2 saturations are 100 percent. GENERAL APPEARANCE: Mr. Lopez is a very thin, elderly man who appears his stated age. The patient appears tired but not acutely distressed. He is alert and appropriate in conversation. HEENT: Sclerae are white. CHEST: Breath sounds are clear anteriorly in the upper jeffrey. Diminished breath sounds at the bases. There is a defibrillator in the subcutaneous position in the left chest wall. CARDIOVASCULAR: Irregular rhythm. LABS: CBC from today shows a white count of 17.3, hemoglobin 11.5, hematocrit 34.9, platelets of 146. Most recent serum chemistries drawn around 4:30 today show sodium of 127, potassium 7.3, chloride 90, CO2 15, anion gap 22, BUN 107, creatinine 3.8, glucose 211, calcium 10.5. Venous lactic acid is elevated at 7.2. ASSESSMENT AND PLAN: Hyperkalemia in the setting of acute renal failure. The patient wishes to proceed with dialysis. Catheter placement is necessary for this to occur. I have reviewed the risks and benefits of temporary dialysis catheter placement. Risks include but are not limited to bleeding, which could be exacerbated due to his recent use of aspirin, infection, catheter malfunction, pneumothorax, and irritability to the myocardium resulting in arrhythmia. The patient verbalized understanding of the risks of the procedure and would like to proceed. [email or web address]:[email or web address] Job ID: [id number] Doc ID: [id number] Tasha Justin MD
[2017-08-09] MEDS ORDERED: FAMOTIDINE/PF 20 MG/2 ML VIAL IV SCH (21:00)
[2017-08-09] MEDS: HEPARIN 5,000 UNIT/ML VIAL SQ SCH (21:38)
[2017-08-10 01:26] LABS: Blood Urea Nitrogen 40 mg/dl (8-23); Magnesium 1.9 mg/dL (1.6-2.5)
[2017-08-10] MEDS ORDERED: 0.9 % SODIUM CHLORIDE 500 ML IV ONE ×2 (04:27→08:57)
[2017-08-10] MEDS: 0.9 % SODIUM CHLORIDE 10 ML SYRINGE IV SCH (05:59)
[2017-08-10 06:24] LABS: Basophils # (Auto) 0 K/mcL (0.0-0.3); Basophils % (Auto) 0.1 % (0.0-2.0); Eosinophils # (Auto) 0 K/mcL (0.0-0.7); Eosinophils % (Auto) 0.4 % (0.0-7.0); Granulocytes % (Auto) 92.9 % (38.0-78.0); Lymphocytes # (Auto) 0.6 K/mcL (1.5-4.8); Lymphocytes % (Auto) 4.5 % (15.5-49.0); Mean Cell Volume 93.9 fL (80.0-100.0); Mean Corpuscular HGB Conc 33.3 g/dL (31.0-36.0); Mean Corpuscular Hemoglobin 31.3 pg (26.0-34.0); Monocytes # (Auto) 0.3 K/mcL (0.1-0.9); Monocytes % (Auto) 2.1 % (1.0-12.0); Platelet Count 108 K/mcL (140-440); RBC 3.16 M/mcL (4.50-5.90); Red Cell Distribution Width 16.7 % (11.5-14.5)
[2017-08-10 06:52] LABS: ALT/SGPT 641 U/l (0-40); Albumin 2.7 gm/dL (3.2-5.2); Albumin/Globulin Ratio 0.9 (1.0-2.3); Alkaline Phosphatase 89 U/L (39-117); Bilirubin,Direct 0.6 mg/dL (0.0-0.3); Blood Urea Nitrogen 42 mg/dl (8-23); Gamma Glutamyl Transpeptidase 58 U/L (8-61); Magnesium 1.8 mg/dL (1.6-2.5); Uric Acid 7.2 mg/dL (2.5-8.0)
--- NOTE | 2017-08-10 07:09 | Internal Med Progress Note ---
Medical - PN: Subj Patient information: Note initiated : 08/10/17 at 7:04 am Service Date, if different from initiated Date: [] Patient: Alcides Lopez 82 y/o M admitted on 08/09/17 for Altered Mental Status. Chief Complaint: [] Interval history: Mr. Lopez is a 82 year old Male with recent hospitalization presents ot the ER today from [facility] for confusion as well as shortness of breath The patient is mildy confused and does not seem at his baseline, daughter is at bedside. History from patient, and chart review patient was sob x 2 weeks, worse with activity better with rest, no other symptoms, he has decreased appetite over the last few days, he has not eaten much Beyond this he denies all complaints. He has chf with lvef 15-20, chr low bp, he had emphysematous cystitis and cholecystis on the previous admission. He has been at [facility] since then In the ER the patient was mildly confused, daughter at bed side, vitals show HR in 40's, EKG shows bradycardia, paced rhythm? the pt labs show leucocytosis, bun 105, creat 8.3, creat 3.9 The patient was promptly evaluated and admitted to the ICU for further management. Nephrology consulted and hyperkalemia protocol started. Aug 10 Patient seen examined, this AM seems somewhat confused, not able speak cohrently , daughter at bedside The patient is not doing well at this time, his labs are better but he was hypotensive overnight, needing 500cc fluids S/p HD< K is good, patient has urine output. Nephrology is following remains on vanco and zosyn, source of infection still unknown, has h/o complicated UTI in the past. His wbc is trending down. lactic acidosis has improved. ua this time is neg for infection. Patients overall prognosis remains very poor. I was able to discuss wit the patients daughter the goals of care and I feel that the patient would benefit from palliative hospice care at this time. I will try again to talk with the today if possible. Pertinent ROS: unable. Additional PMFSH (Level 3 Only): Medical History Urinary retention (Acute) Encounter for removal of sutures (Acute) Heart failure (Acute) CHF (congestive heart failure), NYHA class IV (Acute) CHF exacerbation (Acute) Pneumonia, aspiration (Acute) CHF (congestive heart failure) (Acute) Sepsis (Acute) Deficient knowledge of congestive heart failure (CHF) (Acute) UTI (urinary tract infection) (Acute) Emphysematous cystitis (Acute) Cholelithiasis (Acute) Hyperkalemia (Acute) Acute renal failure (Acute) Acute urinary retention (Acute) CHF (congestive heart failure) (Chronic) Detrusor dysfunction (Chronic) Actinic keratosis (Chronic) Basal cell carcinoma of skin (Chronic) Supraventricular tachycardia (Chronic) Retinal detachment (Chronic) Psoriasis (Chronic) Orthostasis (Chronic) Myocardial infarct (Chronic) Memory loss (Chronic) Ischemic cardiomyopathy (Chronic) Inguinal hernia (Chronic) Hypertension (Chronic) Hyperlipidemia (Chronic) Heart disease (Chronic) Diabetes (Chronic) Pain (Chronic 09/24/15) - Constitutional Vitals: Vital Signs Temp Pulse Resp BP Pulse Ox 98.0 F 76 19 85/48 95 08/10/17 04:01 08/10/17 05:30 08/10/17 05:30 08/10/17 05:30 08/10/17 05:30 Period Temp Pulse Resp BP Sys/Culp Pulse Ox Last 24 Hr 96.9 F-98.0 F 39-92 10-35 70-165/38-80 80-100 Intake and Output 08/09/17 08/10/17 08/10/17 21:59 05:59 13:59 Intake Total 875 / 875 550 / 550 Output Total 1412 / 1412 815 / 815 120 / 120 Balance -537 / -537 -265 / -265 -120 / -120 Weight 125 lb Intake & Output: Intake & Output 08/09/17 08/10/17 08/10/17 21:59 05:59 13:59 Intake Total 875 / 875 550 / 550 Output Total 1412 / 1412 815 / 815 120 / 120 Balance -537 / -537 -265 / -265 -120 / -120 Weight 125 lb Intake: IV 875 / 875 550 / 550 Sodium Chloride 0.9% 1,000 ml @ 75 / 75 50 mls/hr IV ONCE ONE Rx#: [id number] Sodium Chloride 0.9% 500 ml @ 500 / 500 Wide Open IV BOLUS ONE Rx#: [id number] Zosyn 2.25 gm In Dextrose 5% in 50 / 50 50 / 50 Water 50 ml @ 100 mls/hr IV Q8H [facility] Rx#:[id number] Output: Urine Catheter Amount 1412 / 1412 815 / 815 120 / 120 Hemodialysis UF 0 / 0 Other: # of times incontinent of 1 Bowels Exam: Constitutional; Afebrile, drowsy, but responds to verbal stimuli, tries to answer questions, malnourished Eyes- No icterus, , No periorbital swelling Ears- Ext ear normal, . Neck- Midline trachea, supple Respiratory system: Air Entry equal on both sides, No crackles or wheezing, no rhonchi. CVS- Rate rhythm regular, S1,S2 heard, no gallop, no rub. Abdomen- Soft nontender abdomen, no organomegaly, no tenderness, no guarding or rigidity, [employer]- AOOx1, moving all extremities, no gross focal deficit noted. Medical - PN: Obj Da - Labs CBC & Chem 7: 08/10/17 04:10 08/10/17 04:10 Labs: Abnormal Lab Results 08/10/17 08/10/17 08/10/17 04:10 04:10 04:10 WBC 12.3 H RBC 3.16 L Hgb 9.9 L Hct 29.6 L POC Hct RDW 16.7 H Plt Count 108 L Gran % 92.9 H Lymph % (Auto) 4.5 L Gran # 11.4 H Lymph # (Auto) 0.6 L VBG Lactic Acid 2.5 H POC Sodium Sodium POC Potassium Potassium Chloride 95 L Carbon Dioxide POC Total CO2 Anion Gap POC BUN BUN 42 H Creatinine 2.0 H POC Creatinine Glucose POC Glucose Calcium 8.5 L Total Bilirubin 1.4 H Direct Bilirubin 0.6 H AST 631 H ALT 641 H Lactate Dehydrogenase 441 H Troponin T NT-Pro-B Natriuret Pep Total Protein 5.7 L Albumin 2.7 L Albumin/Globulin Ratio 0.9 L 08/10/17 08/09/17 08/09/17 00:25 16:34 14:05 WBC RBC Hgb Hct POC Hct RDW Plt Count Gran % Lymph % (Auto) Gran # Lymph # (Auto) VBG Lactic Acid POC Sodium Sodium 132 L 127 L 126 L POC Potassium Potassium 7.3 H* 8.4 H* Chloride 93 L 90 L 90 L Carbon Dioxide 15 L 13 L POC Total CO2 Anion Gap 22.0 H 23.0 H POC BUN BUN 40 H 107 H* 108 H* Creatinine 1.8 H 3.8 H 3.9 H POC Creatinine Glucose 109 H 211 H 187 H POC Glucose Calcium 10.5 H 11.1 H Total Bilirubin Direct Bilirubin AST ALT Lactate Dehydrogenase Troponin T NT-Pro-B Natriuret Pep Total Protein Albumin Albumin/Globulin Ratio 08/09/17 08/09/17 08/09/17 12:00 11:45 09:37 WBC RBC Hgb Hct POC Hct 36.0 L RDW Plt Count Gran % Lymph % (Auto) Gran # Lymph # (Auto) VBG Lactic Acid 7.2 H* POC Sodium 128 L Sodium POC Potassium 7.9 H* Potassium Chloride Carbon Dioxide POC Total CO2 14 L Anion Gap POC BUN 101 H* BUN Creatinine POC Creatinine 3.9 H Glucose POC Glucose 122 H Calcium Total Bilirubin Direct Bilirubin AST ALT Lactate Dehydrogenase Troponin T 0.05 H* NT-Pro-B Natriuret Pep Total Protein Albumin Albumin/Globulin Ratio 08/09/17 08/09/17 09:37 09:37 WBC 17.3 H RBC 3.68 L Hgb 11.5 L Hct 34.9 L POC Hct RDW 17.5 H Plt Count Gran % 92.2 H Lymph % (Auto) 3.4 L Gran # 16.0 H Lymph # (Auto) 0.6 L VBG Lactic Acid POC Sodium Sodium 127 L POC Potassium Potassium 8.3 H* Chloride 90 L Carbon Dioxide 12 L POC Total CO2 Anion Gap 25.0 H POC BUN BUN 105 H* Creatinine 3.9 H POC Creatinine Glucose 132 H POC Glucose Calcium 10.5 H Total Bilirubin 1.2 H Direct Bilirubin AST 853 H ALT 795 H Lactate Dehydrogenase Troponin T NT-Pro-B Natriuret Pep 69436.0 H Total Protein Albumin Albumin/Globulin Ratio Meds: Medications Acetaminophen (Tylenol) 650 mg PO Q4-6HP PRN PRN Reason: PAIN/FEVER > 101 Famotidine (Pepcid) 20 mg IV HS [facility] Last Admin: 08/09/17 21:38 Dose: 20 mg Heparin Sodium (Porcine) (Heparin) 5,000 unit SQ Q12 [facility] Last Admin: 08/09/17 21:38 Dose: 5,000 unit Hydromorphone HCl (Dilaudid) 0.5 mg IV Q2HP PRN PRN Reason: PAIN LEVEL > 6 Sodium Chloride (Sodium Chloride 0.9%) 1,000 mls @ 50 mls/hr IV ONCE ONE Stop: 08/10/17 09:14 Last Infusion: 08/09/17 14:10 Dose: 0 mls/hr Piperacillin Sod/Tazobactam (Sod 2.25 gm/ Dextrose) 50 mls @ 100 mls/hr IV Q8H [facility] Last Infusion: 08/10/17 00:23 Dose: Infused Sodium Bicarbonate 150 meq/ (Dextrose) 1,000 mls @ 50 mls/hr IV Q20H [facility] Last Admin: 08/09/17 14:59 Dose: 50 mls/hr Naloxone HCl (Narcan) 0.1 mg IV Q2MIN PRN PRN Reason: Opiate Reversal Ondansetron HCl (Zofran) 4 mg IV Q4-6HP PRN PRN Reason: Nausea And Vomiting Sodium Chloride (Saline Flush) 10 ml IV Q8 [facility] Last Admin: 08/10/17 05:59 Dose: Not Given Vancomycin HCl (Vancomycin Per Pharmacy) 1 order IV UD [facility] Medical - PN: A/P - Time Spent With Patient Total time spent is greater than 50% in coordination of care (as documented) at patient's floor/unit and/or counseling patient: - Narrative A/P Narrative: A/P Acute congestive heart failure, lvef 15-20% Acute renal failure Acute hyperkalemia with EKG changes/ Resolved. SIRS/ sepsis syndrome. h/o BPH, indwelling spangler cath abnormal Liver function test lactic acidosis HAGMA/NAGMA Hyponatremia Hypertension HYperlipidemia Plan continue to monitor in ICU Appreciate nephrology eval and help S/P 1 session of HD yesterday, K this AM better, BUN improved and creat improved. patient making urine, he remains confused, repeat CXR this AM trend lactic acid IV fluids if hypotensive Will need to address goals of care with family again, now that the daughter is here. continue with IV abx vanco and zosyn d2 today. LFt still elevated but better than admissino consider CT abdomen and pelvis for source of infection.? usg reviewed, has no e/ o cholecystitis. DVT hep DNR code status Medical - PN: Qual - VTE Deep Vein Thrombosis/Pulmonary Embolism Present on Admission: No
[2017-08-10] MEDS: PIPERACILLIN SODIUM/TAZOBACTAM 2.25 GM in DEXTROSE 5% IN WATER 50 ML IV SCH (07:21)
--- NOTE | 2017-08-10 08:26 | XRay Report ---
CLINICAL INFORMATION: CHF COMPARISON: 12/08/2016 FINDINGS: Moderate cardiomegaly with automatic defibrillator and lead wires are unremarkable. Right IJ line tip overlies the SVC right atrial junction. Mediastinum is unremarkable. Pulmonary vessels are mildly distended and there is minimal interstitial edema. No infiltrates or effusions IMPRESSION: Mild recurrent CHF Interpreted and Authenticated by: Yahir Bauer 08/10/17
--- NOTE | 2017-08-10 08:29 | Operative Note ---
DATE OF OPERATION: 08/09/2017 PREOPERATIVE DIAGNOSES: Hyperkalemia and acute renal failure. POSTOPERATIVE DIAGNOSES: Hyperkalemia and acute renal failure. PROCEDURE PERFORMED: Right IJ temporary hemodialysis catheter placement under ultrasound guidance. SURGEON: Tasha Justin MD ANESTHETIC: Local anesthesia 1% LIDOCAINE. INDICATIONS FOR PROCEDURE: The patient is an 82-year-old man who presented to the hospital with confusion with a finding of hyperkalemia in the setting of what appears to be acute renal failure. The patient wishes to proceed with dialysis for correction of his hyperkalemia. He is in need of urgent placement of hemodialysis catheter. DESCRIPTION OF PROCEDURE: After obtaining informed consent, the patient was placed in the supine position. The right neck was prepped and draped in a sterile manner. The ultrasound probe was sterilely draped and was used to identify the right internal jugular vein. Next a local injection of 1% lidocaine was instilled into the skin overlying the area which the needle was to be inserted. Next, using the ultrasound for visualization the large bore needle provided with the hemodialysis catheter kit was used to cannulate the right internal jugular vein on first stick. Guidewire was then is inserted into the vein via the needle that had been placed. The needle was withdrawn leaving the guidewire in place. Next, the skin was incised at the entrance site of the needle using a scalpel. The dilator was then inserted into the vein over the guidewire and then removed. Next, the preflushed hemodialysis catheter was then inserted into the vein over the guidewire. The guidewire was removed, keeping the catheter in place. Flow was tested in both ports and found to be adequate on flushing and withdrawal. Both ports were flushed with sterile saline. The catheter was then sutured in place using 2-0 silk suture. Post-procedure chest x-ray was obtained. Review of post-procedure chest x-ray showed the line in the superior vena cava with no sign of hemo or pneumothorax. [email or web address]:erika Job ID: [id number] Doc ID: [id number] Tasha Justin MD
[2017-08-10] MEDS: HEPARIN 5,000 UNIT/ML VIAL SQ SCH (09:03)
--- NOTE | 2017-08-10 11:21 | Discharge Summary ---
Medical - DS: Prov Patient information: Note initiated : 08/10/17 at 11:10 am Service Date, if different from initiated Date: [] Patient: Alcides Lopez 82 y/o M admitted on 08/09/17 for Altered Mental Status. Chief Complaint: [] Date of admission: 08/09/17 13:37 Discharge date: 08/10/17 Primary care physician: Brian Francisco Admitting clinician: Meri Martinez Consults: 08/09/17 12:16 Consult to Physician [CONS] Stat Comment: Consulting Provider: Meri Martinez Reason For Exam: Physician to Consult 08/09/17 13:48 Consult to Physician [CONS] Stat Comment: rob, renal failuire Consulting Provider: Malinda Crump Reason For Exam: Physician to Consult Discharging clinician: Meri Martinez Medical - DS: Meds - Discharge Medications Prescriptions: LORazepam [Lorazepam Intensol] 2 mg PO Q2HP PRN #60 ml PRN Reason: Anxiety morphine 10 - 20 mg PO Q2HP PRN #240 oral.conc PRN Reason: pain/ shortness of breath Active and Home Medications: Home Medications cholecalciferol (vitamin D3) 5,000 unit capsule 5,000 unit PO QDAY cap [History Confirmed 08/09/17 Last Taken Unknown] Aspirin [Jeanine Chewable Aspirin] 81 mg PO DAILY 02/24/17 [History Confirmed Last Taken Unknown] pravastatin 20 mg tablet 20 mg PO QHS #30 tab 04/23/17 [Rx Confirmed 08/09/17 Last Taken Unknown] sitagliptin 100 mg tablet 100 mg PO QDAY #30 tab 05/01/17 [Rx Confirmed Last Taken Unknown] Bisoprolol Fumarate 1.25 mg PO DAILY #30 tab 07/09/17 [Rx Confirmed 08/09/17 Last Taken Unknown] Potassium Chloride [Klor-Con 10] 20 meq PO BIDCC #60 tablet.er 07/09/17 [Rx Confirmed 08/09/17 Last Taken Unknown] Torsemide [Demadex] 10 mg PO DAILY #30 tab 07/09/17 [Rx Confirmed 08/09/17 Last Taken Unknown] clindamycin HCl 150 mg capsule 150 mg PO BID 7 Days #14 cap 08/06/17 [Rx Confirmed 08/09/17 Last Taken Unknown] Bisacodyl [Dulcolax] 10 mg [place] PRN PRN 08/09/17 [History Confirmed 08/09/17 Last Taken Unknown] Magnesium Hydroxide [Milk of Magnesia] 30 ml PO DAILYP PRN 08/09/17 [History Confirmed 08/09/17 Last Taken Unknown] Mupirocin 2% Nasal Oint [Bactroban 2% Nasal Oint] 1 gm TYRESE BID 08/09/17 [ History Confirmed 08/09/17 Last Taken Unknown] Tamsulosin HCl [Flomax] 0.4 mg PO HS 08/09/17 [History Confirmed 08/09/17 Last Taken Unknown] Zinc Oxide [Desitin] 57 gm TP BID 08/09/17 [History Confirmed 08/09/17 Last Taken Unknown] Medical - DS: Hosp Hospital course: Mr. Lopez is a 82 year old Male with recent hospitalization presents to the ER from [facility] for confusion as well as shortness of breath,The patient is mildly confused and does not seem at his baseline, was at the patients bedside. Patient has been short of breath for nearly 2 weeks and progressively getting worse, he has also reported decreased appetite over the last few days, he has not eaten much, he denies any other complaints. He has chf with lvef 15-20, chr low bp, he had emphysematous cystitis and cholecystis on the previous admission. He has been at snf since then In the ER the patient was mildly confused, daughter at bed side, vitals show HR in 40's, EKG shows bradycardia, paced rhythm? the pt labs show leucocytosis, bun 105, creat 8.3, creat 3.9 The patient was promptly evaluated and admitted to the ICU for further management. Nephrology consulted and hyperkalemia protocol started. The patient received 1 session of HD, with good response as to his K, creat and bun came down, overnight he was hypotensive needing bolus x2, the patients mental status is not back to baseline, very weak and very confused. I spoke with the daughter this AM, as well as the patients , the patient has overall poor prognosis, he is not a candidate for lobsterman dialysis, not did he wish for any aggressive treatments in the past. The patients and the daughter decided that its time for comfort care and elected to withdraw care and perssue palliative are only. The patients non essential medications will be stopped, he will be discharged back to SNF for palliative care. Discharge diagnosis: Renal failure, Congestive heart failuire, Palliative Care. - Time Spent with Patient Total time spent providing and/or coordinating discharge services: Greater than 30 minutes Medical - DS: Exam - Constitutional Vitals: Vital Signs Temp Pulse Pulse Resp BP BP Pulse Ox 08/10/17 10:02 72 16 78/56 97 08/10/17 10:00 72 13 95 08/10/17 09:31 70 26 H 82/45 95 08/10/17 09:04 71 14 79/38 95 08/10/17 09:02 71 15 76/45 94 08/10/17 09:00 71 15 94 08/10/17 08:32 73 15 96/49 94 08/10/17 08:05 75 15 85/50 94 08/10/17 08:00 73 16 97 08/10/17 07:32 76 18 83/72 95 08/10/17 07:02 75 20 93 08/10/17 07:01 98.8 F 75 21 90/51 93 08/10/17 07:00 74 14 96 08/10/17 06:30 75 16 88/51 95 08/10/17 06:01 74 15 94 08/10/17 06:00 74 15 83/47 95 08/10/17 05:31 73 17 95 08/10/17 05:30 76 19 85/48 95 08/10/17 05:00 76 17 96 08/10/17 04:31 76 21 71/48 97 08/10/17 04:15 74 14 72/61 96 08/10/17 04:02 76 24 H 96 08/10/17 04:01 98.0 F 76 16 70/52 96 08/10/17 04:00 76 30 H 96 08/10/17 03:30 76 19 79/58 99 08/10/17 03:02 78 24 H 95 08/10/17 03:01 77 20 82/49 95 08/10/17 03:00 77 17 96 08/10/17 02:30 76 27 H 85/65 95 08/10/17 02:01 77 19 95 08/10/17 02:00 76 22 81/47 96 08/10/17 01:30 78 14 79/47 96 08/10/17 01:16 77 15 98 08/10/17 01:15 77 19 81/49 97 08/10/17 01:01 76 16 96 08/10/17 01:00 77 19 88/74 96 08/10/17 00:45 78 18 82/57 99 08/10/17 00:18 77 17 86/55 97 08/10/17 00:12 78 17 97 08/10/17 00:11 97.1 F 17 86/55 08/09/17 23:47 80 20 08/09/17 23:31 76 16 95/56 97 08/09/17 23:28 97 F 78 95/56 08/09/17 23:15 80 21 89/62 08/09/17 23:01 76 19 95 08/09/17 23:00 70 22 93/60 08/09/17 22:45 76 22 99/59 98 08/09/17 22:42 76 99/59 08/09/17 22:31 82 17 89/57 08/09/17 22:17 76 101/60 08/09/17 22:15 76 18 101/60 100 08/09/17 22:03 75 35 H 100 08/09/17 22:02 76 21 93/62 97 08/09/17 22:01 77 20 87/57 97 08/09/17 22:00 79 23 H 08/09/17 21:47 76 102/75 08/09/17 21:45 82 18 102/75 08/09/17 21:30 73 16 104/63 08/09/17 21:15 73 102/73 08/09/17 21:14 76 102/73 08/09/17 21:01 92 H 19 80 L 08/09/17 21:00 19 108/67 08/09/17 20:48 76 104/69 08/09/17 20:45 77 24 H 104/69 97 08/09/17 20:30 106/70 17 20:16 73 107/68 100 17 20:15 97.6 F 77 107/68 08/09/17 20:01 73 100 08/09/17 20:00 75 21 106/72 96 08/09/17 19:45 107/68 08/09/17 19:30 74 109/72 97 08/09/17 19:15 76 19 102/70 97 08/09/17 19:01 72 22 96 08/09/17 19:00 97.4 F 71 21 104/74 08/09/17 18:45 73 19 106/69 98 08/09/17 18:30 74 22 108/72 100 08/09/17 18:15 74 21 108/72 99 08/09/17 18:02 74 24 H 99 08/09/17 18:01 74 28 H 112/72 100 08/09/17 18:00 73 18 100 08/09/17 17:46 26 H 108/67 08/09/17 17:31 20 108/71 08/09/17 17:16 19 108/67 08/09/17 17:01 28 H 103/73 08/09/17 17:00 73 24 H 100 08/09/17 16:47 73 22 107/73 100 08/09/17 16:31 73 27 H 112/71 99 08/09/17 16:16 20 105/67 08/09/17 16:01 110/72 08/09/17 16:00 74 100 08/09/17 15:48 78 23 H 113/74 100 08/09/17 15:31 81 14 165/78 95 08/09/17 15:16 83 15 165/77 97 08/09/17 15:11 80 17 155/80 96 08/09/17 15:01 23 H 105/72 08/09/17 15:00 78 25 H 100 08/09/17 14:31 65 22 127/80 97 08/09/17 14:01 72 33 H 103/71 100 08/09/17 14:00 72 30 H 100 08/09/17 13:55 70 20 103/71 100 08/09/17 13:40 96.9 F L 56 L 21 100/58 84 L 08/09/17 13:37 96.9 F L 74 32 H 103/71 99 08/09/17 13:31 71 35 H 107/70 100 08/09/17 13:15 97.1 F 22 88/67 08/09/17 13:06 56 L 21 100/58 84 L 08/09/17 13:00 28 H 100/58 08/09/17 12:59 72 21 98/60 100 08/09/17 11:31 42 L 24 H 85/54 100 08/09/17 11:17 39 L 26 H 87/38 100 08/09/17 11:11 43 L 91/52 100 Intake and Output 08/09/17 08/10/17 08/10/17 21:59 05:59 13:59 Intake Total 875 / 875 550 / 550 550 / 550 Output Total 1412 / 1412 815 / 815 820 / 820 Balance -537 / -537 -265 / -265 -270 / -270 Intake: IV 875 / 875 550 / 550 550 / 550 Sodium Chloride 0.9% 1,000 ml @ 75 / 75 50 mls/hr IV ONCE ONE Rx#: [id number] Sodium Chloride 0.9% 500 ml @ 500 / 500 500 / 500 Wide Open IV BOLUS ONE Rx#: [id number] Zosyn 2.25 gm In Dextrose 5% in 50 / 50 50 / 50 50 / 50 Water 50 ml @ 100 mls/hr IV Q8H [facility] Rx#:[id number] Output: Urine Catheter Amount 1412 / 1412 815 / 815 820 / 820 Hemodialysis UF 0 / 0 Other: # of times incontinent of 1 Bowels Weight 125 lb Additional comments: Constitutional; Afebrile, drowsy and confused. malnourished Eyes- No icterus, , No periorbital swelling Ears- Ext ear normal, Neck- Midline trachea, supple Respiratory system: Air Entry equal on both sides, No crackles or wheezing, no rhonchi. CVS- Rate rhythm regular, S1,S2 heard, no gallop, no rub. Abdomen- Soft nontender abdomen, no organomegaly, no tenderness, no guarding or rigidity, PROGRAM LEAD- AOOx1, moving all extremities, no gross focal deficit noted. Medical - DS: Data Labs on day of discharge: Labs from last 24 hours 08/10/17 08/10/17 08/10/17 04:10 04:10 04:10 WBC 12.3 H RBC 3.16 L Hgb 9.9 L Hct 29.6 L POC Hct MCV 93.9 MCH 31.3 MCHC 33.3 RDW 16.7 H Plt Count 108 L MPV 9.1 Gran % 92.9 H Lymph % (Auto) 4.5 L [place] % (Auto) 2.1 Eos % (Auto) 0.4 Baso % (Auto) 0.1 Gran # 11.4 H Lymph # (Auto) 0.6 L [place] # (Auto) 0.3 Eos # (Auto) 0 Baso # (Auto) 0 Differential Comment Y VBG Lactic Acid 2.5 H POC Sodium Sodium 136 POC Potassium Potassium 3.6 POC Chloride Chloride 95 L Carbon Dioxide 26 POC Total CO2 Anion Gap 15.0 POC BUN BUN 42 H Creatinine 2.0 H POC Creatinine GFR Calculation 30 Glucose 80 POC Glucose Uric Acid 7.2 Calcium 8.5 L POC WB Ioniz Calcium Phosphorus 3.6 Magnesium 1.8 Total Bilirubin 1.4 H Direct Bilirubin 0.6 H GGT 58 AST 631 H ALT 641 H Alkaline Phosphatase 89 Lactate Dehydrogenase 441 H NT-Pro-B Natriuret Pep Total Protein 5.7 L Albumin 2.7 L Globulin 3.0 Albumin/Globulin Ratio 0.9 L Triglycerides 52 Ur Random Creatinine U Random Total Protein Ur Random Sodium Urine Urea Nitrogen 08/10/17 08/09/17 08/09/17 00:25 16:34 14:05 WBC RBC Hgb Hct POC Hct MCV MCH MCHC RDW Plt Count MPV Gran % Lymph % (Auto) [place] % (Auto) Eos % (Auto) Baso % (Auto) Gran # Lymph # (Auto) [place] # (Auto) Eos # (Auto) Baso # (Auto) Differential Comment VBG Lactic Acid POC Sodium Sodium 132 L 127 L 126 L POC Potassium Potassium 4.1 7.3 H* 8.4 H* POC Chloride Chloride 93 L 90 L 90 L Carbon Dioxide 24 15 L 13 L POC Total CO2 Anion Gap 15.0 22.0 H 23.0 H POC BUN BUN 40 H 107 H* 108 H* Creatinine 1.8 H 3.8 H 3.9 H POC Creatinine GFR Calculation 35 14 14 Glucose 109 H 211 H 187 H POC Glucose Uric Acid Calcium 8.6 10.5 H 11.1 H POC WB Ioniz Calcium Phosphorus Magnesium 1.9 Total Bilirubin Direct Bilirubin GGT AST ALT Alkaline Phosphatase Lactate Dehydrogenase NT-Pro-B Natriuret Pep Total Protein Albumin Globulin Albumin/Globulin Ratio Triglycerides Ur Random Creatinine U Random Total Protein Ur Random Sodium Urine Urea Nitrogen 08/09/17 08/09/17 08/09/17 12:00 11:45 10:23 WBC RBC Hgb Hct POC Hct 36.0 L MCV MCH MCHC RDW Plt Count MPV Gran % Lymph % (Auto) [place] % (Auto) Eos % (Auto) Baso % (Auto) Gran # Lymph # (Auto) [place] # (Auto) Eos # (Auto) Baso # (Auto) Differential Comment VBG Lactic Acid 7.2 H* POC Sodium 128 L Sodium POC Potassium 7.9 H* Potassium POC Chloride 102 Chloride Carbon Dioxide POC Total CO2 14 L Anion Gap POC BUN 101 H* BUN Creatinine POC Creatinine 3.9 H GFR Calculation Glucose POC Glucose 122 H Uric Acid Calcium POC WB Ioniz Calcium 1.17 Phosphorus Magnesium Total Bilirubin Direct Bilirubin GGT AST ALT Alkaline Phosphatase Lactate Dehydrogenase NT-Pro-B Natriuret Pep Total Protein Albumin Globulin Albumin/Globulin Ratio Triglycerides Ur Random Creatinine U Random Total Protein Ur Random Sodium Urine Urea Nitrogen 503 08/09/17 08/09/17 08/09/17 10:23 10:23 10:23 WBC RBC Hgb Hct POC Hct MCV MCH MCHC RDW Plt Count MPV Gran % Lymph % (Auto) [place] % (Auto) Eos % (Auto) Baso % (Auto) Gran # Lymph # (Auto) [place] # (Auto) Eos # (Auto) Baso # (Auto) Differential Comment VBG Lactic Acid POC Sodium Sodium POC Potassium Potassium POC Chloride Chloride Carbon Dioxide POC Total CO2 Anion Gap POC BUN BUN Creatinine POC Creatinine GFR Calculation Glucose POC Glucose Uric Acid Calcium POC WB Ioniz Calcium Phosphorus Magnesium Total Bilirubin Direct Bilirubin GGT AST ALT Alkaline Phosphatase Lactate Dehydrogenase NT-Pro-B Natriuret Pep Total Protein Albumin Globulin Albumin/Globulin Ratio Triglycerides Ur Random Creatinine 42.2 U Random Total Protein 5 Ur Random Sodium < 20 Urine Urea Nitrogen 08/09/17 09:37 WBC RBC Hgb Hct POC Hct MCV MCH MCHC RDW Plt Count MPV Gran % Lymph % (Auto) [place] % (Auto) Eos % (Auto) Baso % (Auto) Gran # Lymph # (Auto) [place] # (Auto) Eos # (Auto) Baso # (Auto) Differential Comment VBG Lactic Acid POC Sodium Sodium POC Potassium Potassium POC Chloride Chloride Carbon Dioxide POC Total CO2 Anion Gap POC BUN BUN Creatinine POC Creatinine GFR Calculation Glucose POC Glucose Uric Acid Calcium POC WB Ioniz Calcium Phosphorus Magnesium Total Bilirubin Direct Bilirubin GGT AST 853 H ALT 795 H Alkaline Phosphatase Lactate Dehydrogenase NT-Pro-B Natriuret Pep 82396.0 H Total Protein Albumin Globulin Albumin/Globulin Ratio Triglycerides Ur Random Creatinine U Random Total Protein Ur Random Sodium Urine Urea Nitrogen Medical - DS: A/P - Patient/Caregiver Discharge Instructions Activity: increase activity as tolerated Diet: Regular Diet Additional Instructions: Patient is Palliative care now Morphine and ativan every 2 hrs as needed for shortness of breath, pain and anxiety. NO further follow up needed. Will discharge with spangler in place for end of life care. - Follow up Plan Follow up with: Brian Francisco MD [Primary Care Provider] - Disposition: [facility] Prognosis: Undetermined Rehab Potential: Undetermined I certify that the patient requires SNF services: Yes Overall status at discharge: patient is not back to baseline Medical - DS: Qual - VTE Deep Vein Thrombosis/Pulmonary Embolism Present on Admission: No
== END 2017-08-10 12:00 | DRG 683 ==
LOC: ED 09:14 → ICU 13:37
PROVIDERS: ADMIT Internal Medicine; ATTEND Internal Medicine